=== PATIENT | female | born 1940 | race Caucasian/White ===

== ENCOUNTER 2016-11-20 15:28 | Observation (INO) ==
[2016-11-20] MEDS ORDERED: Aspirin 81 MG TAB.CHEW PO ONE (15:54)
--- NOTE | 2016-11-20 16:01 | Emergency Department Note ---
Disposition Clinical Impression: Chest pain Qualifiers: Chest pain type: unspecified Qualified Code(s): R07.9 - Chest pain, unspecified Disposition: Admitted As Inpatient Condition: Good Referrals: Nikunj Ash Jr, MD [Primary Care Provider] - Forms: ED Satisfaction Letter Time of Disposition: 18:58 General Adult HPI - General Chief complaint: ED Chest Pain Stated complaint: SOB Time Seen by Provider: 11/20/16 15:44 Source: patient Limitations: no limitations Nursing Notes Reviewed: Yes Vital Signs Reviewed: Yes - History of Present Illness HPI Narrative: 10 day history of aching in her chest. [facility]. No radiation. Associated shortness of breath. No alleviating or provoking factors. Pain Scale: 8 - Related Data Home Medications Medication Instructions Recorded Confirmed Cetirizine HCl [Zyrtec] 10 mg PO DAILY PRN 09/18/16 11/20/16 Meloxicam 7.5 mg PO DAILY 09/18/16 11/20/16 Tramadol HCl [Ultram] 50 mg PO Q6H PRN 09/18/16 11/20/16 metFORMIN [Glucophage] 500 mg PO BIDWM 09/18/16 11/20/16 Albuterol Sulfate [Albuterol 2 puff IH Q4HR PRN 11/20/16 11/20/16 Inhaler] Aspirin Enteric Coated [Aspirin EC] 81 mg PO DAILY 11/20/16 11/20/16 Allergies Allergy/AdvReac Type Severity Reaction Status Date / Time azithromycin Allergy Swelling Verified 09/18/16 18:51 [From Zithromax Z-Silvano] of Lip/Tongue/Throat cephalexin [From Keflex] Allergy Rash Verified 09/18/16 18:51 All systems ED: reviewed and negative except as stated. Constitutional: Denies: fever, chills ENT ED: Denies: throat pain, congestion Cardiovascular: Reports: chest pain (ache for 10 days) Respiratory: Reports: cough (dry for one month), dyspnea (with the chest discomfort) Gastrointestinal: Denies: abdominal pain, nausea, vomiting, diarrhea Genitourinary: Denies: urgency, dysuria, frequency, hematuria Musculoskeletal: Denies: back pain, neck pain Neurological: Denies: headache, weakness Past Medical History - Past Medical History Attestation: Yes The following information was validated with the patient. Medical history: Reports: arthritis, asthma, diabetes, other - Social History Smoking Status: Never smoker Smokeless Tobacco Status: No Alcohol use: Reports: none Drug use: Reports: none Physical Exam - General Limitations: no limitations General appearance: alert, in no apparent distress - Head Head exam: atraumatic, normocephalic, normal inspection - Eye Eye exam: Present: normal appearance, PERRL, EOMI. Absent: scleral icterus - ENT ENT exam: normal exam, normal oropharynx, mucous membranes moist - Neck Neck exam: Present: normal inspection, full ROM, trachea midline - Chest Chest inspection: Present: normal inspection, symmetric chest wall rise. Absent : tenderness - Respiratory Respiratory exam: Present: normal lung sounds bilaterally. Absent: respiratory distress - Cardiovascular Cardiovascular exam: Present: regular rate, normal rhythm, normal heart sounds - Abdominal Exam Abdominal exam: Present: soft, Non-Tender, normal bowel sounds - Extremities Exam Extremities exam: Present: normal inspection, full ROM, normal capillary refill. Absent: tenderness, pedal edema - Back Exam Back exam: Present: normal inspection, full ROM. Absent: tenderness - Neurological Exam Neurological exam: Present: alert, oriented X3 - Psychiatric Psychiatric exam: Present: normal affect, normal mood - Skin Skin exam: Present: warm, dry, intact, normal color. Absent: rash, cyanosis Course Course Narrative: Female patient with a ten-day history of chest pain shortness of breath. She states the pain is getting worse. She denies any cardiac history. She states this happened about 3 years ago however this time it is more intense. She does have a history of emphysema. Patient states that it does not get better or worse with movement. She denies any fevers. She denies any chills. She denies any productive cough but states she does have a chronic dry cough. Her lung sounds are clear heart tones are normal. She denies any nausea or vomiting. She describes the pain in her chest as an ache. She states it is very hard to describe periods of funny feeling to her. Eyes any nausea vomiting or diarrhea. She has no abdominal pain on exam. Her abdominal exam is soft nontender with no masses she has no edema to any of her extremities. Cardiac workup revealed a negative troponin. Her EKG was of normal sinus rhythm. We will admit patient for a cardiac workup. - Reevaluation(s) Reevaluation #1: Patient reassessed. She was having an episode of chest pain. She still refusing pain medication at this time. She is in normal sinus rhythm. We will get another EKG. We will admit patient to the hospital. Time: 18:55 - Consultations Consultation #1: Fito ALAS accepted Pt in stable condition. Time: 18:59 Vital Signs Temperature 97.7 F 11/20/16 15:35 Pulse Rate 74 11/20/16 15:35 Respiratory Rate 19 11/20/16 15:35 Blood Pressure 174/87 11/20/16 15:35 O2 Sat by Pulse Oximetry 96 11/20/16 15:35 Temperature 97.7 F 11/20/16 15:35 Pulse Rate 78 11/20/16 18:42 Respiratory Rate 16 11/20/16 18:42 Blood Pressure 170/95 11/20/16 18:42 O2 Sat by Pulse Oximetry 99 11/20/16 18:42 Oxygen Delivery Oxygen Delivery Room Air Medical Decision Making - Medical Records Medical records reviewed: Yes I reviewed the patient's medical records. - Lab Data Lab results reviewed: Yes I reviewed the patient's lab results. Result diagrams: 11/20/16 16:00 Lab Results 11/20/16 11/20/16 11/20/16 Range/Units 16:00 16:00 16:20 Sodium 140 (136-145) mEq/L Potassium 3.7 (3.5-4.5) mEq/L Chloride 105 (98-109) mEq/L Carbon Dioxide 27 (19-29) mEq/L BUN 22 H (7-20) mg/dL Creatinine 0.77 (0.57-1.11) mg/dL Est GFR ( Amer) > 60 (> 60) Est GFR (Non-Af Amer) > 60 (> 60) BUN/Creatinine Ratio 29 H (6-26) Glucose 96 (70-99) mg/dL Calculated Osmolality 293 (280-300) Calcium 9.2 (8.6-10.8) mg/dL Troponin I 0.00 (0-0.03) ng/mL Urine Color Yellow (Yellow) Urine Clarity Clear (Clear) Urine pH 6.5 (5.0-8.0) pH Units Ur Specific [place] 1.017 (1.010-1.025) Urine Protein Negative (Neg-Trace) mg/dL Urine Glucose (UA) Normal (Normal) mg/dL Urine Ketones Negative (Negative) mg/dL Urine Blood Negative (Negative) Urine Nitrite Negative (Negative) Urine Bilirubin Negative (Negative) Urine Urobilinogen Normal (Normal) mg/dL Ur Leukocyte Esterase Trace H (Negative) Urine Microscopic RBC 0-3 (0-3) per hpf Urine Microscopic WBC 0-3 (0-3) per hpf Ur Squamous Epith Cells Moderate H (None-Few) per lpf Urine Bacteria None Seen (None-Few) per hpf Hyaline Casts None Seen (None-Few) per lpf Ur Culture Indicated? YES A (NO) - Radiology Data Radiology results reviewed: Yes I reviewed the patient's radiology results. Chest X-Ray 11/20/16 15:55 IMPRESSION: No acute process. D/ / Osvaldo Hogue MD / Osvaldo Hogue MD Interpreting Provider: Osvaldo Hogue MD - EKG Data EKG #1 EKG attestation: Yes I reviewed and interpreted this EKG. EKG results narrative: 1547 Normal sinus rhythm with a sinus arrhythmia at a rate of 71. VT interval is 184. QRS duration is 86. QT is 395. QTC is 417. No signs of acute ischemia. No significant changes from previous EKG dated 09/17/2013. EKG #2 EKG attestation: Yes I reviewed and interpreted this EKG. EKG results narrative: 1634 Normal sinus rhythm with a sinus arrhythmia at a rate of 69. VT interval is 187. QRS duration is 81. QT is 417. QTC is 436. No signs of acute ischemia. No changes from previous EKG taken earlier today. EKG #3 EKG attestation: Yes I reviewed and interpreted this EKG. EKG results narrative: 1900 Sinus rhythm with a sinus arrhythmia at a rate of 84. VT interval is 184. QRS duration is 78. QT is 383. QTC is 424. Signs of acute ischemia. No change from previous EKGs dated today. Attestation Statement - Attestation Attestation: I examined this patient and my medical decision-making was reviewed with the [employer]/PA/Advanced Practice Nurse/Resident Physician. I agree with the documented findings, disposition and treatment plan as described except to the extent set forth below.
[2016-11-20 16:23] LABS: BUN/Creatinine Ratio 29 (6-26); Blood Urea Nitrogen 22 mg/dL (7-20); Calcium 9.2 mg/dL (8.6-10.8); Carbon Dioxide 27 mEq/L (19-29); Chloride 105 mEq/L (98-109); Glucose 96 mg/dL (70-99); Osmolality,Calculated 293 (280-300); Potassium 3.7 mEq/L (3.5-4.5); Sodium 140 mEq/L (136-145); eGFR For African Americans > 60 (> 60); eGFR For Non-African Americans > 60 (> 60)
[2016-11-20 16:31] LABS: Bilirubin,Urine Negative (Negative); Blood,Urine Negative (Negative); Clarity,Urine Clear (Clear); Color,Urine Yellow (Yellow); Glucose,Urine (UA) Normal (Normal); Ketones,Urine Negative (Negative); Leukocyte Esterase,Urine Trace (Negative); Nitrite,Urine Negative (Negative); PH,Urine 6.5 pH Units (5.0-8.0); Protein,Urine Negative (Neg-Trace); Specific Gravity,Urine 1.017 (1.010-1.025); Urobilinogen,Urine Normal (Normal)
[2016-11-20 16:37] LABS: Bacteria,Urine None Seen per hpf (None-Few); Hyaline Casts,Urine None Seen per lpf (None-Few); RBC,Urine 0-3 per hpf (0-3); Squamous Epithelial Cell,Urine Moderate per lpf (None-Few); WBC,Urine 0-3 per hpf (0-3)
[2016-11-20] MEDS ORDERED: Naloxone 0.4 MG/ML INJ IVP PRN (19:37)
[2016-11-20] MEDS ORDERED: *HR* Morphine 2 MG/ML SYRINGE IVP PRN (19:37)
[2016-11-20] MEDS ORDERED: Ondansetron 4 MG/2 ML VIAL IVP PRN (19:37)
--- NOTE | 2016-11-20 21:06 | Internal Med History&Physical ---
<Osvaldo Harding - Last Filed: 11/20/16 21:16> Date of Encounter: 11/20/16 Time of Encounter: 21:01 Assessment and Plan (1) Chest pain Current visit: Yes Status: Acute Chest pain appears atypical. No history or family history of cardiac disease. Patient is a diabetic so there is some elevated risk with that. No EKG changes concerning for ischemia. Given the patient's symptoms we will trend troponins and obtain a stress test in the morning. We will check A1c and lipid panel. If negative patient can likely be discharged home for outpatient follow-up. Qualifiers: Chest pain type: unspecified Qualified Code(s): R07.9 - Chest pain, unspecified (2) Hypertension Current visit: Yes Status: Acute Patient's blood pressure is elevated on presentation. This could be contributing to the patient's chest pain. It was reported that the patient's blood pressure was as high as 240 systolic however that is not documented in the medical record are mentioned in any nurses note or ER documentation. Documented blood pressures show blood pressure 170/95 which is improved to 152/ 80. Patient has no history of hypertension. This may be related to pain. We will continue to monitor the patient's blood pressure and hold off on any antihypertensive agents at this time. If the patient's blood pressure remains elevated she may benefit from initiation of an antihypertensive regimen and close outpatient follow-up. Qualifiers: Hypertension type: essential hypertension Qualified Code(s): I10 - Essential (primary) hypertension (3) Type 2 diabetes mellitus Current visit: Yes Status: Acute Patient takes metformin only at home and appears to have shown a good control of her blood sugars. Most recent A1c was August 2015 which was 5.9. Patient reports blood sugars at home run between 80 and 140. We will hold metformin at this time and hold off on any diabetic treatment as the patient will be nothing by mouth at midnight for stress test. 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 Patient is ambulatory. Internal Medicine - H&P: HPI Chief complaint: Chest Pain Admitted From: Emergency Dept Plans for Post Hospital Care: Home History of present illness: Ms. Keyes is a 76 year old female with history of well controlled diabetes presents with chest pain. Patient states that she has had chest discomfort for the past 10 days. She describes it as a intermittent heaviness in the chest. She reports occasional radiation to R neck. She states occasionally it is worse with exertion but discomfort does not worsen every time she exerts her self. She feels like her symptoms have worsened over the last few day. She reports shortness of breath and diaphoresis associated with the symptoms. She also reports some "fluttering" in her chest today. She denies fever, chills, nausea , vomiting, change in bowel habits, dysuria Past Med Surg Social Fam HX - Past Medical History Medical history: arthritis, asthma, diabetes, other - Past Surgical History Surgical History: appendectomy, cholecystectomy - Social History Smoking Status: Never smoker Smokeless Tobacco Status: No Alcohol use: none Drug use: none - Family History Paternal Grandfather Hx Family Cardiac Disorders: Yes Internal Medicine - H&P: Meds Cetirizine HCl [Zyrtec] 10 mg PO DAILY PRN 09/18/16 [History] Meloxicam 7.5 mg PO DAILY 09/18/16 [History] Tramadol HCl [Ultram] 50 mg PO Q6H PRN 09/18/16 [History] metFORMIN [Glucophage] 500 mg PO BIDWM 09/18/16 [History] Albuterol Sulfate [Albuterol Inhaler] 2 puff IH Q4HR PRN 11/20/16 [History] Aspirin Enteric Coated [Aspirin EC] 81 mg PO DAILY 11/20/16 [History] Allergies azithromycin [From Zithromax Z-Silvano] Allergy (Verified 09/18/16 18:51) Swelling of Lip/Tongue/Throat cephalexin [From Keflex] Allergy (Verified 09/18/16 18:51) Rash All Systems PM: A 10-system review of systems was performed and is negative for pertinent findings except as documented above in the HPI. - Constitutional Constitutional: no chills, no fever(s), no falls, no weakness - EENT Eyes: no blurry vision, no change in vision Nose, mouth and throat: no sinus pain, no sinus pressure, no sore throat - Cardiovascular Cardiovascular ROS IM: chest pain, diaphoresis, dyspnea, palpitations, no edema , no irregular heart rhythm, no lightheadedness, no syncope - Respiratory Respiratory: cough (dry), dyspnea, no hemoptysis, no wheezing, no chest congestion, no excessive phlegm production, no change in phlegm color - Gastrointestinal Gastrointestinal: no abdominal pain, no change in bowel habits, no nausea, no vomiting - Genitourinary Genitourinary: no dysuria, no hematuria - Musculoskeletal Musculoskeletal ROS IM: no back pain, no numbness, no tingling - Integumentary Integumentary IM: no new lesions, no rash - Neurological Neurological ROS: no confusion, no dizziness, no frequent falls - Psychiatric Psychiatric: no anxiety - Hematologic/Lymphatic Hematologic/Lymphatic: no easy bleeding, no easy bruising - Constitutional Vitals: Temp Pulse Resp BP Pulse Ox 97.7 F 78 18 152/80 99 11/20/16 15:35 11/20/16 18:42 11/20/16 19:57 11/20/16 19:57 11/20/16 18:42 General appearance: Present: A&O X 3, pleasant, no acute distress - Head Head exam: Present: atraumatic, normal inspection, normocephalic - Eye Eye exam: Present: EOMI, PERRL - ENT ENT exam: Present: mucous membranes moist - Neck Neck exam general surgery: Present: full ROM, supple - Respiratory Respiratory exam: Present: CTAB. Absent: rales, rhonchi, wheezes - Cardiovascular Cardiovascular exam: Present: RRR. Absent: gallop, irregular rhythm, rubs, systolic murmur, tachycardia - GI/Abdominal GI/Abdominal exam: Present: normal bowel sounds, soft. Absent: distended, tenderness - Extremities Exam Extremities exam: Present: warm. Absent: pedal edema, tenderness Additional comments: Varicose veins noted to right lower extremity. - Neurological Exam Neurological exam: Present: alert, CN II-XII intact, oriented X3, no focal deficits - Skin Skin exam: Present: dry, intact, warm Internal Med - H&P Results - Labs CBC & Chem 7: 11/20/16 16:00 <Yemi Pinto - Last Filed: 11/21/16 05:29> Date of Encounter: 11/20/16 Internal Medicine - H&P: HPI History of present illness: Ms. Keyes is a 76 year old female All Systems PM: A 10-system review of systems was performed and is negative for pertinent findings except as documented above in the HPI. - Constitutional Vitals: Temp Pulse Resp BP Pulse Ox 98.0 F 73 14 122/67 95 11/21/16 03:44 11/21/16 03:44 11/21/16 03:44 11/21/16 03:44 11/21/16 03:44 Internal Med - H&P Results - Labs CBC & Chem 7: 11/21/16 03:41 11/21/16 03:41 Labs: Short CBC 11/21/16 Range/Units 03:41 WBC 7.6 (4.3-11.1) K/mcL Hgb 13.1 (11.5-15.4) g/dL Hct 40.9 (35.3-44.9) % Plt Count 165 (140-400) K/mcL Neutrophils # 4.4 (1.6-8.9) K/mcL BMP 11/21/16 03:41 Sodium 140 Potassium 3.7 Chloride 107 Carbon Dioxide 24 BUN 19 Creatinine 0.78 Glucose 95 Calcium 9.3 Cardiac Enzymes 11/20/16 11/21/16 Range/Units 21:43 03:41 Troponin I 0.00 0.00 (0-0.03) ng/mL - Attending Attestation I personally interviewed and examined this patient and my medical decision- making was reviewed with the Resident Physician. I agree with the documented findings, disposition and treatment plan as described.
[2016-11-20 22:34] LABS: Basophils # 0.1 K/mcL (0.0-0.2); Basophils % 0.7 %; Eosinophils # 0.2 K/mcL (0.0-0.6); Eosinophils % 2.4 %; Hematocrit 44.8 % (35.3-44.9); Hemoglobin 13.9 g/dL (11.5-15.4); Immature Granulocytes % 0.1 % (0-4); Lymphocytes # 2.6 K/mcL (0.6-4.6); Lymphocytes % 35.7 %; Mean Corpuscular Hemoglobin 26.5 pg (28.0-33.3); Mean Corpuscular Volume 85.3 fL (83.0-100.0); Mean Platelet Volume 10.7 fL (9.4-12.4); Monocytes # 0.5 K/mcL (0.0-1.3); Monocytes % 7.3 %; Neutrophils # 3.9 K/mcL (1.6-8.9); Platelet Count 201 K/mcL (140-400); Red Blood Count 5.25 M/mcL (3.82-4.97); Red Cell Distribution Width 15.1 % (11.5-14.5); Segmented Neutrophils % 53.8 %
[2016-11-20] MEDS: traMADol 50 MG TABLET PO PRN (23:04)
[2016-11-21 04:37] LABS: Basophils % 0.5 %; Eosinophils # 0.1 K/mcL (0.0-0.6); Eosinophils % 1.8 %; Hematocrit 40.9 % (35.3-44.9); Hemoglobin 13.1 g/dL (11.5-15.4); Immature Granulocytes % 0.1 % (0-4); Lymphocytes # 2.4 K/mcL (0.6-4.6); Lymphocytes % 31.4 %; Mean Corpuscular Hemoglobin 26.8 pg (28.0-33.3); Mean Corpuscular Volume 83.8 fL (83.0-100.0); Mean Platelet Volume 10.2 fL (9.4-12.4); Monocytes # 0.6 K/mcL (0.0-1.3); Monocytes % 7.7 %; Neutrophils # 4.4 K/mcL (1.6-8.9); Platelet Count 165 K/mcL (140-400); Red Blood Count 4.88 M/mcL (3.82-4.97); Segmented Neutrophils % 58.5 %
[2016-11-21 04:53] LABS: Hemoglobin A1C 5.8 %
[2016-11-21 05:08] LABS: BUN/Creatinine Ratio 24 (6-26); Blood Urea Nitrogen 19 mg/dL (7-20); Carbon Dioxide 24 mEq/L (19-29); Chloride 107 mEq/L (98-109); Glucose 95 mg/dL (70-99); Potassium 3.7 mEq/L (3.5-4.5); Sodium 140 mEq/L (136-145); eGFR For African Americans > 60 (> 60); eGFR For Non-African Americans > 60 (> 60)
[2016-11-21 05:09] LABS: Calcium 9.3 mg/dL (8.6-10.8); Chol/HDL Ratio 3.8 (0-4.9); Cholesterol 158 mg/dL (< 200); HDL Cholesterol 42 mg/dL (40-59); LDL Cholesterol,Calculated 104 mg/dL (0-99); Magnesium 1.8 mg/dL (1.6-2.6); Osmolality,Calculated 292 (280-300); Triglycerides 58 mg/dL (< 150)
[2016-11-21] MEDS: *HR* Heparin 5,000 UNIT/ML VIAL SQ SCH ×3 (05:22→20:44)
[2016-11-21] MEDS ORDERED: Regadenoson 0.4 MG/5 ML SYRINGE IVP ONE (06:25)
[2016-11-21] MEDS: Aspirin Enteric Coated 81 MG Tablet PO SCH (09:18)
[2016-11-21] MEDS: traMADol 50 MG TABLET PO PRN ×2 (09:20→20:43)
--- NOTE | 2016-11-21 12:56 | Electrocardiograph Report ---
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
--- NOTE | 2016-11-21 12:57 | Electrocardiograph Report ---
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
--- NOTE | 2016-11-21 13:01 | Electrocardiograph Report ---
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
[2016-11-21] MEDS: hydroCHLOROthiazide 25 MG TABLET PO SCH (14:40)
--- NOTE | 2016-11-21 14:58 | Internal Med Progress Note ---
Date of Encounter: 11/21/16 Time of Encounter: 10:00 - Assessment and plan (1) Chest pain Current Visit: Yes Status: Acute Assessment and plan: Patient reports chest pain on and off for approximately one year, she states it has become worse over the last 8 days. She says it is almost constant and describes it as a pressure. She says at different times throughout the last 8 days she has had diaphoresis, no nausea or vomiting. She also reports weakness , feeling palpitations, fatigue, and shortness of breath. She reports that the pain is mid sternal, upper chest with some radiation to her right posterior neck and left breast at times. She also reports that she has been treated recently for bronchitis and has a nonproductive cough. Pain is not reproducible with palpation, movement, or deep inspiration. She feels that the pain could potentially be related to hypertension. She said that she took a old TRAM last night for knee pain and states that it did help her chest pain a little bit. She currently rates it at 2/10. Troponins were negative. She is getting a 2 day stress test. EKG showed sinus rhythm with borderline left axis deviation. Rate was 69, TN interval was 187, QTC 436. Telemetry Pain relief as needed Stress test today 2 tomorrow If stress negative and patient is still having chest pain consider cardiology consult Qualifiers: Chest pain type: unspecified Qualified Code(s): R07.9 - Chest pain, unspecified (2) Hypertension Current Visit: Yes Status: Acute Assessment and plan: She states that her blood pressure is normally low. She states that she was 200 systolic yesterday. She feels that is contributing to her chest pain. She does have hydralazine 10 mg IV when necessary. I also started her on hydrochlorothiazide 12.5 mg by mouth daily. Will continue to reassess and see if this helps with her chest pain. Blood pressures is 150 over 90s. Patient states this is high for her. Qualifiers: Hypertension type: essential hypertension Qualified Code(s): I10 - Essential (primary) hypertension (3) Type 2 diabetes mellitus Current Visit: Yes Status: Acute Assessment and plan: Well controlled. A1c is 5.8. 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 - Time Spent With Patient less than 15 minutes - Constitutional Vitals: Temp Pulse Resp BP Pulse Ox 97.6 F 75 16 158/94 95 11/21/16 10:54 11/21/16 10:54 11/21/16 10:54 11/21/16 10:54 11/21/16 10:54 General appearance: Present: A&O X 3, pleasant, no acute distress, answers questions appropriately - Head Head exam: Present: normal inspection - Eye Eye exam: Present: normal appearance, conjuntiva pink - ENT ENT exam: Present: mucous membranes moist, normal exam, normal external ear exam - Neck Neck exam general surgery: Present: normal inspection. Absent: lymphadenopathy , tenderness - Respiratory Respiratory exam: Present: CTAB. Absent: rales, respiratory distress, rhonchi, wheezes - Cardiovascular Cardiovascular exam: Present: RRR, +S1, +S2. Absent: bradycardia, clicks, diastolic murmur, distant heart sounds, gallop, JVD, systolic murmur - GI/Abdominal GI/Abdominal exam: Present: normal bowel sounds, soft. Absent: distended, hepatomegaly, tenderness - Extremities Exam Extremities exam: Present: normal capillary refill, normal inspection, warm, radial pulses palpable and symetrical. Absent: pedal edema, tenderness - Neurological Exam Neurological exam: Present: alert, oriented X3, no focal deficits, strengths equal and symetr throughout. Absent: facial droop, speech deficit Internal Medicine: Result - Labs CBC & Chem 7: 11/21/16 03:41 11/21/16 03:41 Labs: Short CBC 11/21/16 Range/Units 03:41 WBC 7.6 (4.3-11.1) K/mcL Hgb 13.1 (11.5-15.4) g/dL Hct 40.9 (35.3-44.9) % Plt Count 165 (140-400) K/mcL Neutrophils # 4.4 (1.6-8.9) K/mcL BMP 11/21/16 03:41 Sodium 140 Potassium 3.7 Chloride 107 Carbon Dioxide 24 BUN 19 Creatinine 0.78 Glucose 95 Calcium 9.3 Cardiac Enzymes 11/20/16 11/21/16 Range/Units 21:43 03:41 Troponin I 0.00 0.00 (0-0.03) ng/mL Consult Discharge Plan - Plan Referrals: Nikunj Ash Jr, MD [Primary Care Provider] -
[2016-11-21] MEDS ORDERED: Dextrose Gel 15 GM PO PRN ×2 (15:03)
[2016-11-21] MEDS ORDERED: D5% in Water 1,000 ML IVC PRN (15:03)
[2016-11-21] MEDS ORDERED: *HR* Dextrose 50 % in Water (Syg) 50 ML SYRINGE IVP PRN (15:03)
[2016-11-21] MEDS: Insulin LISPRO 300 UNITS/3 ML VIAL SQ SCH (16:44)
[2016-11-21] MEDS ORDERED: Insulin LISPRO 300 UNITS/3 ML VIAL SQ SCH (21:00)
[2016-11-22 04:46] LABS: Basophils # 0.1 K/mcL (0.0-0.2); Basophils % 0.8 %; Eosinophils # 0.1 K/mcL (0.0-0.6); Eosinophils % 1.7 %; Hematocrit 40.4 % (35.3-44.9); Hemoglobin 12.8 g/dL (11.5-15.4); Immature Granulocytes % 0.3 % (0-4); Lymphocytes # 1.9 K/mcL (0.6-4.6); Lymphocytes % 28.1 %; Mean Corpuscular HGB Conc 31.7 g/dL (31.6-35.5); Mean Corpuscular Hemoglobin 26.6 pg (28.0-33.3); Mean Corpuscular Volume 83.8 fL (83.0-100.0); Monocytes # 0.5 K/mcL (0.0-1.3); Monocytes % 7.3 %; Neutrophils # 4.1 K/mcL (1.6-8.9); Platelet Count 172 K/mcL (140-400); Red Blood Count 4.82 M/mcL (3.82-4.97); Red Cell Distribution Width 14.7 % (11.5-14.5); Segmented Neutrophils % 61.8 %
[2016-11-22 05:05] LABS: BUN/Creatinine Ratio 24 (6-26); Blood Urea Nitrogen 20 mg/dL (7-20); Calcium 9.1 mg/dL (8.6-10.8); Carbon Dioxide 27 mEq/L (19-29); Chloride 106 mEq/L (98-109); Glucose 114 mg/dL (70-99); Osmolality,Calculated 291 (280-300); Potassium 3.8 mEq/L (3.5-4.5); Sodium 139 mEq/L (136-145); eGFR For African Americans > 60 (> 60); eGFR For Non-African Americans > 60 (> 60)
[2016-11-22] MEDS: *HR* Heparin 5,000 UNIT/ML VIAL SQ SCH (06:29)
[2016-11-22] MEDS: Insulin LISPRO 300 UNITS/3 ML VIAL SQ SCH ×2 (09:36→11:43)
[2016-11-22] MEDS: hydroCHLOROthiazide 25 MG TABLET PO SCH (09:43)
[2016-11-22] MEDS: Aspirin Enteric Coated 81 MG Tablet PO SCH (09:43)
[2016-11-22 11:28] VITALS: BP 130/88
--- NOTE | 2016-11-22 11:30 | Nuclear Medicine Stress Report ---
rRegadenoson Nuclear 2 Name: Mariel Keyes Date of Study: 11/21/2016 Date: 1940 Ht: 66.0 in Medical Record#: [id number] Age: 76 Wt: 241.0 lb Gender: Female Order #: [id number] Location: [facility] Room: [facility] Supervising Provider: Gabriela Cole CNP Reading Physician: Anish Donis DO, FAC, [facility] Ordering Physician: Gavi Ibrahim CNP Primary Care Physician: Nikunj Ash MD Stress Technologist: Liang Hoskins, ASSOCIATE CURATOR, CCT Banquet Coordinator: Remigio Hallman Indications: Chest Pain Impression: Pharmacologic stress ECG is negative for ischemia at level of heart rate achieved. Gated EF = 71%. Small sized, mild intensity, fixed apical lateral defect c/w artifact. Perfusion imaging was negative for ischemia or infarct. History: Diabetes Stress Test Summary: Stress Test Type: Pharmacologic Regadenoson 0.4mg/5ml given IV Baseline Information: Initial Heart Rate: 74 Blood Pressure: 144/86 Stress Information: Stress Time: 4 min 00 sec Test Terminated Due to (primary): Completed Protocol Maximum Blood Pressure: 104/70 Maximum Heart Rate: 87 Percent Maximum Heart Rate Achieved: 61 Double Product: 9048 METS Reached: 1 Symptoms: Shortness of breath, Nausea Nuclear Summary: SPECT myocardial perfusion imaging using Tc99m Sestamibi given intravenously was performed at rest and following cardiac stress testing. The resting images were obtained following initial dose of 31.5 mCi. Following stress an additional dose of 35.2 mCi was given at peak exercise or 30 seconds post regadenoson infusion. Medication Given: Time Medication Dose Units Route Findings: Stress Note * Resting ECG demonstrated normal sinus rhythm. * Occasional PVCs noted prior to exam beginning. * Pharmacologic stress ECG is negative for ischemia at level of heart rate achieved. * Occasional PVCs noted during stress. * Patient had no chest pain during stress. Hemodynamic responses * Normal hemodynamic responses to pharmacologic stress. Study Quality * Study quality is average. Gated EF % * Gated EF = 71%. Left Ventricle * The left ventricle is not dilated. * LVEDV = 95 mL. NORMALS * Normal wall motion. Apical Perfusion Rest * The apical lateral segment shows a mild reduction in perfusion. Apical Perfusion Stress * The apical lateral segment shows a mild reduction in perfusion. TID * No evidence of transient ischemic dilatation. TID ratio * TID ratio = 1.14. Lung Uptake * There is no evidence of increase lung uptake. Updated by Anish Donis DO, FACIzzy, LIZBETH, FASVIRI on 11/22/2016 11:26:43 AM electronically signed on 11/22/2016 11:27:13 AM with status of Final
--- NOTE | 2016-11-22 12:28 | Discharge Summary ---
Date of Encounter: 11/22/16 Time of Encounter: 11:00 - Discharge Diagnosis (1) Chest pain Priority: Primary Status: Acute Comments: Pt denies chest pain today. 2 day stress test completed, Mauricio negative for ischemia, gated EF 71%, there is a small sized, mild intensity, fixed apical lateral defect consistent with artifact. Perfusion imaging was negative for ischemia or infarct. Chest x-ray was negative for any acute processes, troponins were negative. EKG was sinus rhythm with sinus arrhythmia on arrival. Rate 84, ID interval 184 and QTC 424. Patient reports that she has not had any chest pain since yesterday. Lungs are clear anteriorly and posteriorly. Patient does have mild lower extremity edema bilaterally, she says this is normal for her and remain unchanged. Qualifiers: Chest pain type: precordial pain Qualified Code(s): R07.2 - Precordial pain (2) Hypertension Priority: Secondary Status: Acute Comments: Patient was hypertensive on admission. She returned to 160s over 90s throughout admission, I did start her on a very low dose of hydralazine yesterday afternoon. Blood pressure is now at goal. Last blood pressure was 130/88. Pulse is regular. We will send patient home on hydralazine 12.5 mg by mouth daily Patient will follow up with primary care physician for evaluation and medication change if needed. Qualifiers: Hypertension type: essential hypertension Qualified Code(s): I10 - Essential (primary) hypertension (3) Type 2 diabetes mellitus Priority: Secondary Status: Acute Comments: A1c is 5.8. Accu-Cheks have been slightly elevated in the 130s and 140s. Continue home medications. Qualifiers: Diabetes mellitus complication status: without complication Diabetes mellitus watermelon inspector insulin use: without watermelon inspector use Qualified Code(s): E11.9 - Type 2 diabetes mellitus without complications (4) DVT prophylaxis Priority: Secondary Status: Acute - Discharge Medications Prescriptions: hydroCHLOROthiazide [Hydrochlorothiazide] 12.5 mg PO DAILY #30 tablet Home Medications: Cetirizine HCl [Zyrtec] 10 mg PO DAILY PRN 09/18/16 [History] Meloxicam 7.5 mg PO DAILY 09/18/16 [History] Tramadol HCl [Ultram] 50 mg PO Q6H PRN 09/18/16 [History] metFORMIN [Glucophage] 500 mg PO BIDWM 09/18/16 [History] Albuterol Sulfate [Albuterol Inhaler] 2 puff IH Q4HR PRN 11/20/16 [History] Aspirin Enteric Coated [Aspirin EC] 81 mg PO DAILY 11/20/16 [History] hydroCHLOROthiazide [Hydrochlorothiazide] 12.5 mg PO DAILY #30 tablet 11/22/16 [ Rx] Allergies/Adverse Reactions: Allergies azithromycin [From Zithromax Z-Silvano] Allergy (Verified 09/18/16 18:51) Swelling of Lip/Tongue/Throat cephalexin [From Keflex] Allergy (Verified 09/18/16 18:51) Rash Procedures/tests Complete & Pending: Procedures Performed prior 72 hours Category Date Time Status NM isaac perf SPECT multi [NM] Routine Exams 11/20/16 21:15 Taken SP pharm nuclear stress Routine Y 11/21/16 Completed Date of admission: 11/20/16 19:20 Primary care physician: Nikunj Ash Jr, MD Discharging clinician: Gavi Ibrahim Anticipated date of discharge: 11/22/16 - Patient Status Disposition: Home, Self-Care Functional capacity at discharge: independent ambulation Overall status at discharge: patient is back to baseline - Discharge Instructions Follow Up With: Kendal Ramirez DO [Partnered Physician] - 11/26/16 9:30 am Additional Instructions: Please start taking your HCTZ at home tomorrow. Resume all other home medications. Please follow up with your PCP in the next week to 10 days for a follow up visit , you may need a medication adjustment or change. Return to the ER as needed for any new or concerning symptoms or if your pain returns. - Diet and Activity Activity: increase activity as tolerated Diet: diabetic diet Interval History: Mrs. Keyes is a 76-year-old female with past medical history of type 2 diabetes. She is very well controlled A1c is 5.9. She presented to the emergency department 2 days ago with a complaint of chest discomfort, describes it as a heaviness with radiation to the right neck. She says she has had it for about a year, however it has gotten worse over the last 8-10 days. She denies any relation to food, however sometimes it does get worse with exertion, does not get worse with deep inspiration. She does report shortness of breath and diaphoresis along with the chest pain, she denies nausea. Today patient is pain -free and has had no episodes since yesterday. Patient had a 2 day stress test that showed no signs of ischemia or infarct. Chest x-ray was negative. Troponins were negative. EKG was normal sinus rate 84. There is no conversational dyspnea. She does have mild peripheral edema, + 1 nonpitting. She says this is normal for her, it is unchanged. Patient was hypertensive on arrival. She remained 160s over 90s throughout her stay. I gave her 1 dose of hydrochlorothiazide yesterday afternoon, shortly thereafter chest pain resolved. Her last blood pressure here was 130/88, which is well within goal for her age. I will send her home with a prescription for the same. I have made her aware that she will need to follow-up with her primary care physician for evaluation and possible medication change if necessary. Patient has S1 and S2, regular rate and rhythm, no gallops murmurs or clicks. Peripheral pulses are +2 and regular. Patient's labs have remained within normal limits. Blood pressure has returned to within normal limits. Patient is stable and appropriate for discharge. Hospital course: Ms. Keyes is a 76 year old female - Time Spent with Patient Total time spent providing and/or coordinating discharge services: Less than 30 minutes - Constitutional Vitals: Temp Pulse Resp BP Pulse Ox 98.0 F 62 16 130/88 95 11/22/16 11:27 11/22/16 11:27 11/22/16 11:27 11/22/16 11:27 11/22/16 11:27 General appearance: Present: cooperative, A&O X 3, pleasant, no acute distress, answers questions appropriately - Head Head exam: Present: normal inspection - Eye Eye exam: Present: normal appearance, conjuntiva pink - ENT ENT exam: Present: mucous membranes moist, normal exam, normal external ear exam - Neck Neck exam general surgery: Present: normal inspection, supple. Absent: lymphadenopathy, tenderness - Respiratory Respiratory exam: Present: CTAB. Absent: decreased breath sounds, rales, respiratory distress, rhonchi, wheezes - GI/Abdominal GI/Abdominal exam: Present: normal bowel sounds. Absent: distended, hepatomegaly, tenderness - Extremities Exam Extremities exam: Present: normal capillary refill, pedal edema, warm, radial pulses palpable and symetrical. Absent: tenderness - Neurological Exam Neurological exam: Present: alert, no focal deficits, strengths equal and symetr throughout. Absent: facial droop, speech deficit
== END 2016-11-22 13:18 | disposition home or self-care (01) ==
LOC: 3BNU 15:28 → EMEROO 15:28 → 3BNU 20:15
PROVIDERS: ADMIT Internal Medicine; ATTEND Registered Nurse

== ENCOUNTER 2017-09-12 09:14 | Inpatient (IN) ==
--- NOTE | 2017-09-12 09:20 | History & Physical Report ---
Date of Encounter: 09/12/17 Time of Encounter: 09:20 24 Hour HP Update - Instructions Instructions: If the History and Physical is less than 30 days old and was completed prior to A.M. admission and or procedure and has NOT been updated on calendar day of procedure please complete this update prior to performing procedure. - Update Patient reports changes in Medical Condition: No Changes in examination, assessment, or condition: No Changes in Medication: No Preop tests/diagnostics Reviewed: Yes Surgery Remains Indicated: Yes Consent for Planned Operative Procedure(s) Verified: Yes
[2017-09-12] MEDS ORDERED: Albuterol 2.5 MG/3 ML NEBULIZER IH ONE (09:42)
[2017-09-12] MEDS ORDERED: Clindamycin 900 MG/50 ML 900 MG/50 ML IV.SOLN IVPB ONE (09:42)
[2017-09-12] MEDS ORDERED: Ringers Solution, Lactated 1,000 ML IVC SCH ×2 (09:45→17:18)
[2017-09-12] MEDS ORDERED: Ketorolac 15 MG/ML VIAL IVP ONE (09:45)
[2017-09-12] MEDS ORDERED: Dexamethasone 4 MG/ML VIAL IVP ONE (09:46)
--- NOTE | 2017-09-12 10:53 | Anesthesia Evaluation PreOp ---
Date of Encounter: 09/12/17 Time of Encounter: 10:46 - Past History Planned Operation: LEFT TKA Cardiac History: HTN, Other (CHEST PAIN 1 YEAR AGO, NEGATIVE CARDIAC WORKUP WITH NORMAL EF) Pulmonary History: Denies Any Significant HX COURIER History: Denies Any Significant HX Other Medical History: Diabetes Type II Anesthesia History: No Prior Anesthetic Complications, Past Anesthesia Alcohol Use: none Drug use: none Medications and Allergies Cetirizine HCl [Zyrtec] 10 mg PO DAILY PRN 09/18/16 [History] Tramadol HCl [Ultram] 50 mg PO Q6H PRN 09/18/16 [History] metFORMIN [Glucophage] 500 mg PO BIDWM 09/18/16 [History] Albuterol Sulfate [Albuterol Inhaler] 2 puff IH Q4HR PRN 11/20/16 [History] Aspirin Enteric Coated [Aspirin EC] 81 mg PO DAILY 11/20/16 [History] hydroCHLOROthiazide [Hydrochlorothiazide] 12.5 mg PO DAILY #30 tablet 11/22/16 [ Rx] Losartan Potassium [Cozaar] 50 mg PO DAILY 09/12/17 [History] Meloxicam [Mobic] 15 mg PO DAILY 09/12/17 [History] 3 Allergy/AdvReac Type Severity Reaction Status Date / Time azithromycin Allergy Swelling Verified 09/18/16 18:51 [From Zithromax Z-Silvano] of Lip/Tongue/Throat cephalexin [From Keflex] Allergy Rash Verified 09/18/16 18:51 - Meds/Allergy Pre-op Review Medications Reviewed: Yes Allergies Reviewed: Yes Anesthesia Results - Labs Laboratory Tests 08/27/17 08/27/17 14:10 14:10 Hgb 13.6 Hct 43.8 Plt Count 203 Creatinine 0.71 Anesthesia Exam O2 Sat Height 1.7 m Weight 116.12 kg BMI 40 Vital Signs Temp Pulse Resp BP Pulse Ox 97.6 F 82 18 129/82 94 09/12/17 09:37 09/12/17 09:37 09/12/17 09:37 09/12/17 09:37 09/12/17 09:37 Blood Glucose* 130 NPO (# of Hours): >8 HOURS - HEENT Mallampati: I Teeth: Normal Denture Type: Upper: Complete - Cardiac Rhythm: Regular - Pulmonary Breath Sounds: bilateral Clear Anesthesia Assess/Plan ASA Score: 3 Modified Carleen Scale for Level of Consciousness: Cooperative, oriented, and tranquil Anesthetic Plan: Regional (SAB, WITH SNB FOR POST OP PAIN) Autologous Blood: Yes Monitoring Plan: Standard Monitors Recovery Plan: PACU Anes Supervising Prov Stmt: I have participated in the evaluation of this patient. Patient informed and consented. Risks, benefits, and alternatives discussed. Patient wishes to proceed.
[2017-09-12] MEDS ORDERED: Ethanol\\Acetic Acid\\Na Ace\\Ben 1,000 ML IRRIG.SOLN IR ONE (11:29)
[2017-09-12] MEDS ORDERED: Tranexamic Acid 1,000 MG/10 ML VIAL ONE (11:48)
[2017-09-12] MEDS ORDERED: *HR* OxyCODONE Immed Rel 5 MG TABLET PO PRN (13:06)
[2017-09-12] MEDS ORDERED: Ondansetron 4 MG/2 ML VIAL IVP ONE (13:06)
[2017-09-12] MEDS ORDERED: *HR* HYDROmorphone 2 MG TABLET PO PRN (13:06)
[2017-09-12] MEDS ORDERED: MORPHINE SUL Oral CONC 10 MG/0.5 ML ORAL.SYG SL PRN (13:06)
[2017-09-12] MEDS ORDERED: *HR* PHENYLEPHRINE 1,000 MCG/10 ML SYRINGE IVP ONE (14:15)
[2017-09-12] MEDS ORDERED: Propofol 500 MG/50 ML INFUS..BTL ONE (14:28)
[2017-09-12] MEDS ORDERED: *HR* Propofol 200 MG/20 ML VIAL IVP ONE (15:10)
--- NOTE | 2017-09-12 15:21 | Physician Discharge Referral ---
Prognosis: Good - Transfer Medications Home Medications: Cetirizine HCl [Zyrtec] 10 mg PO DAILY PRN 09/18/16 [History] Tramadol HCl [Ultram] 50 mg PO Q6H PRN 09/18/16 [History] metFORMIN [Glucophage] 500 mg PO BIDWM 09/18/16 [History] Albuterol Sulfate [Albuterol Inhaler] 2 puff IH Q4HR PRN 11/20/16 [History] Aspirin Enteric Coated [Aspirin EC] 81 mg PO DAILY 11/20/16 [History] hydroCHLOROthiazide [Hydrochlorothiazide] 12.5 mg PO DAILY #30 tablet 11/22/16 [ Rx] Losartan Potassium [Cozaar] 50 mg PO DAILY 09/12/17 [History] Meloxicam [Mobic] 15 mg PO DAILY 09/12/17 [History] Allergies/Adverse Reactions: 3 Allergy/AdvReac Type Severity Reaction Status Date / Time azithromycin Allergy Swelling Verified 09/18/16 18:51 [From Zithromax Z-Silvano] of Lip/Tongue/Throat cephalexin [From Keflex] Allergy Rash Verified 09/18/16 18:51 - Respiratory Orders Smoking Cessation: Smoking cessation has been advised. For more information, call the [place] Tobacco Quit Line at 1-759-HRUN-NOW. - Mobility Orders Ambulate - Rehabiliation Orders Rehab Potential: Good Rehab Orders: ROM Exercises, Evaluation for Physical Therapy Other: DISCHARGE INSTRUCTIONS Dr. Marinelli Total Knee Replacement Wound Care -Keep wound / incision area clean and dry. -Keep the clear dressing on until follow up. -No baths or swimming until otherwise instructed. -Keep the wound dry until follow up. No submerging the wound under standing water until cleared by your physician (no baths, hot tubs, swimming pools, etc) . Sponge baths are the best way to perform personal hygiene while at the same time protecting the wound from moisture. -No scrubbing the wound. You may "pad dry" the wound, but do not rub, as this may open up he wound and pre-dispose to wound infection. -Do not apply lotions or creams to incision site, unless instructed otherwise. -Observe for redness, swelling, or drainage. Please call the clinic immediately if you have fevers, chills with warmth/redness surrounding wound site or if you notice pus drainage from the wound site Activity -No heavy lifting objects greater than 10 pounds. -No driving while on narcotic pain medication. -You may be weight-bear as tolerated on both of your lower extremities. -Use crutches or a walker for ambulation. -Continue range of motion exercises as instructed by the physical therapist Reducing the Risk of Blood Clots -You will need to complete a total 4 week course of enteric coated aspirin 325 mg twice daily. -Wear knee high compression hose 23 hours per day. Discharge Pain Medications -You will be given a prescription for pain medication. Wean off as tolerated. Do not wait to take the pain medication until the pain is severe, as it will be difficult to "catch up" once this occurs. The pain medication usually reaches its full effect ~1 hour after ingesting. -Your prescribed pain medication may contain Tylenol. You must be careful not to exceed 4,000 mg (4 g) of Tylenol (or generic equivalent), from all sources, within a single 24-hour period. -Some common side effects of the narcotic pain medications (Percocet, Oxycodone , Vicodin, etc) include nausea and itching. Benadryl is a great over the counter medication that helps calm your stomach, decreases your anxiety levels, and minimizes the itching. You can easily purchase this at your local pharmacy as an [id number] medication. Please abide by the instructions as printed on t-he bottle. If your nausea persists, make sure to take small amounts of crackers or other dish machine operator foods. - Diet Orders Regular CERTIFICATION: I certify that the transfer of the above named patient to an Extended Care Facility is necessary for the continuing treatment of the diagnosis listed. The above information is true and accurate reflection of patient's current condition. Confidential - Redisclosure prohibited without a patient's written consent.
--- NOTE | 2017-09-12 15:30 | Orthopedic Operative Note ---
Date of procedure: 09/12/17 Pre-op diagnosis: Left knee arthritis Post-op diagnosis: same Procedure: 1. Left total knee arthroplasty with robotic assistance Indications: This is a 77 yo F who has long history of left knee pain with arthritis confirmed on radiographs. The patient has failed conservative treatment including anti-inflammatories therapy and injections. The patient has elected for a left total knee replacement with robotic assistance. The risks and benefits of the procedure were fully explained to the patient. These risks include, but are not limited to, the risk of infection, neurovascular injury, continued pain and stiffness of the knee, need for further surgery, DVT , PE, loss of limb and loss of life. The patient did understand all of these risks and wishes to proceed. Informed consent was then obtained. Operative procedure: The patient was brought back to the OR suite by the anesthesia staff. Adductor canal block and spinal anesthetic was administered by anesthesia. The patient was then placed supine on the operating table and all bony prominences were padded. The anesthesiologist then performed successful general anesthetic for the remainder of the case. The tourniquet was then applied to the upper thigh and the left lower extremity was then prepped and draped in the normal sterile orthopedic fashion. Preoperative antibiotics were then given prior to incision. A timeout was performed confirming the correct patient, site and side, procedure to be performed and any allergies. All were in agreement and we did proceed. An Esmarch bandage was used to exsanguinate the leg, and the tourniquet was elevated to 300 mmHg. A midline 12 cm incision was made from the superior pole of the patella to the tibial tubercle. A medial parapatellar arthrotomy was then used. The patellar was everted, the fat pad was excised. The patella was everted and cut was made at the level of the insertion of the quadriceps and patella tendon. The patella was sized to a 32 mm asymmetric patella, the guide was seated and the lug holes were drilled. Knee was brought into flexion. Patient noted to have grade IV arthritic changes of the patellofemoral joint and medial and lateral compartment. Steinmann pins were placed in the tibia and the femur for the tibial and femoral arrays respectively. Checkpoints were also placed in the tibia and the femur for calculation purposes. The knee, including the femur and the tibial was registered. Osteophytes, ACL and PCL were excised at this point. The knee was assessed in full extension with varus and valgus stresses, and in 90 degrees of flexion with varus and valgus stresses.There was a 15 degree flexion contracture. Components were adjusted on the computer for the robotic cut positions. Femoral cuts were made first with robotic assistance, these included the anterior cut, posterior cuts, chamfer cuts. Tibial cut was then performed with robotic assistance as well. Bone fragments were removed, as well as the medial and lateral meniscus. The size 5 femoral guide was seated, and the PS box cut was made. The size 5 tibial tray was seated and prepared with the fin cutter. Trial reduction with the 9 PS Poly revealed extension of 0 degree and full flexion, varus of 1 degrees. There was no varus-valgus instability with excellent tracking. All trial components were removed all bony surfaces were irrigated. Final components were cemented in place, the tibia followed by the femur with the 9 PS poly and patella. The patient had excellent motion, and stability on tracking after cement cured. The knee was then irrigated out with diluted betadine, bactisure and 2 L of pulse irrigation. The extensor mechanism was closed with #2 FiberWire suture and 0 Stratafix suture. The subcutaneous tissue was then irrigated and closed deep with 2-0 stratafix suture and superficially with 3-0 stratafix suture and skin was closed with zip tie. The patient was then placed in a sterile dressing and a postoperative brace extubated and transferred to recovery room in stable condition. There were no complications. Implants: [place] [employer] PS size 5 femur, size 5 tibia, 9 mm PS poly, 32 mm asymmetric patella Complications: none Anesthesia: GETA, regional, spinal Surgeon: Nicolas Marinelli Was there an recreation assistant present: No Estimated blood loss (cc): 100 Condition: stable Disposition: PACU
--- NOTE | 2017-09-12 15:56 | Anesthesia Evaluation Post Op ---
Date of Encounter: 09/12/17 Time of Encounter: 16:00 - Vital Signs Vital Signs: Vital Signs/O2 Sat/Glucose, Most Current Temp Pulse Resp BP Pulse Ox 09/12/17 15:50 76 14 134/76 94 09/12/17 15:40 69 13 127/76 96 09/12/17 15:30 97.7 F 80 14 125/90 97 - Lungs Lungs: Clear Ascult./Percussion - Airway Airway: Non-obstructed - Cardiovascular Regular Rate - Mental Status Mental Status: Alert & Oriented, Answers Appropriately - Pain Pain Scale: 0 - Nausea Vomiting Nausea Vomiting: Not Present - Hydration Hydration: Ice chips - Discharge PostOp Status: Transfer Patient to floor
[2017-09-12] MEDS ORDERED: Loratadine 10 MG TABLET PO PRN (17:18)
[2017-09-12] MEDS ORDERED: Temazepam 15 MG CAPSULE PO PRN (17:18)
[2017-09-12] MEDS ORDERED: Naloxone 0.4 MG/ML INJ IVP PRN (17:18)
[2017-09-12] MEDS ORDERED: MOM Conc 10 ML UD.LIQ PO PRN (17:18)
[2017-09-12] MEDS ORDERED: Sennosides 8.6 MG TABLET PO PRN (17:18)
[2017-09-12] MEDS ORDERED: Acetaminophen 325 MG TABLET PO PRN (17:18)
[2017-09-12] MEDS: *HR* Metformin 500 MG TABLET PO SCH (18:26)
[2017-09-12] MEDS: Ondansetron 4 MG/2 ML VIAL IVP PRN (18:45)
--- NOTE | 2017-09-12 19:06 | Anesthesia Procedures ---
Date of Encounter: 09/12/17 (LOCATION: BLOCK ROOM PREOP) Time of Encounter: 11:24 ([id number] ) Procedures: Anesthesia - Epidural/Spinal Patient ID/Chart reviewed: Yes Patient examined: Yes Consent Obtained: Yes Supplemental Oxygen: Nasal Cannula Supplemental Oxygen Rate (L/min): 2 Site Prep: Aseptic Technique, Sterile prep and drape, 0.5% Chlorhexidine/Alcohol Patient position: upright Local Anesthetic: Lidocaine 1% Interspace Used: L3-L4 Paresthesia: No Spinal Needle Gauge: 22 (LUCY ON 2ND ATTEMPT) Spinal Dose: 3ML 0.5 BUPIVACAINE + 0.3MG DURAMORPH - Nerve Block Procedure Date: 09/12/17 Time: 11:24 Checklist: Correct Patient Identifier, Correct procedure, History checked Correct side: Left Blood Thinner: No Monitor Applied: EKG, BP, Pulse Oximetry Supplemental Oxygen via Nasal Cannula (L/min): 2 Sedation: Versed (mg): 1 Sedation: Fentanyl (mcg): 50 Indication: Post Op Analgesia Pre-op Neuro Deficits: No Block Type: Other (FNACB ) Catheter placed: No Sterile Technique: Yes Ultrasound used: Yes Anatomy identified: Yes Visual spread of Local: Yes Neuro Stimulation: No Blood on Needle Aspiration: Yes (NEEDLE FLUSHED) Smooth Injection of Local: Yes Pain with Injection of Local: No Prep: Chlorhexadine Needle: 21 x 150 mm Stimuplex Local: 0.25% Bupivicaine w/Clonidine 20 mcg/cc Volume (cc): 20 Number of Attempts: 1 Complications: None/effective block Vitals: VSS
[2017-09-12] MEDS: Clindamycin 900 MG/50 ML 900 MG/50 ML IV.SOLN IVPB SCH (20:21)
[2017-09-13] MEDS: Ondansetron 4 MG/2 ML VIAL IVP PRN ×2 (00:09→22:13)
[2017-09-13] MEDS: Clindamycin 900 MG/50 ML 900 MG/50 ML IV.SOLN IVPB SCH (03:55)
[2017-09-13] MEDS: *HR* Enoxaparin 30 MG/0.3 ML SYRINGE SQ SCH ×2 (05:18→17:10)
[2017-09-13 05:42] LABS: Hematocrit 37.1 % (35.3-44.9); Hemoglobin 11.5 g/dL (11.5-15.4)
[2017-09-13 06:05] LABS: BUN/Creatinine Ratio 33 (6-26); Blood Urea Nitrogen 25 mg/dL (8-23); Calcium 8.8 mg/dL (8.6-10.3); Carbon Dioxide 29 mEq/L (23-29); Chloride 104 mEq/L (98-107); Glucose 123 mg/dL (70-105); Osmolality,Calculated 292 (280-300); Sodium 138 mEq/L (136-145); eGFR For African Americans > 60 (> 60); eGFR For Non-African Americans > 60 (> 60)
[2017-09-13] MEDS: *HR* Metformin 500 MG TABLET PO SCH ×2 (07:53→17:10)
[2017-09-13] MEDS: hydroCHLOROthiazide 25 MG TABLET PO SCH (07:53)
[2017-09-13] MEDS: *HR* HYDROcodone/Acet 5/325 mg TABLET PO PRN ×4 (07:55→22:07)
--- NOTE | 2017-09-13 16:05 | Orthopedics Progress Note ---
Date of Encounter: 09/13/17 Time of Encounter: 16:03 Subjective Principal diagnosis: Postoperative day #1 Interval history: Patient comfortable without complaints Left lower extremity: Knee immobilizer is in place, posterior calf is soft and nontender, neurovascular intact distally right calf is soft and nontender Postoperative day #1 status post left total knee arthroplasty, stable Plan continue OT/PT Continue DVT prophylaxis Discharge planning Objective Vital signs: Vital Signs Temp Pulse Resp BP Pulse Ox 09/13/17 15:50 98.0 F 83 16 96/57 99 09/13/17 11:36 97.4 F L 80 14 93/60 98 09/13/17 08:15 98.5 F 79 14 103/63 94 09/13/17 05:00 97.9 F 80 16 124/70 94 09/12/17 23:16 97.9 F 82 14 116/65 93 09/12/17 22:54 97.5 F L 09/12/17 20:44 96.2 F L 72 14 123/72 100 09/12/17 18:40 67 15 122/64 95 09/12/17 17:20 97.5 F L 70 14 127/78 95 09/12/17 16:55 97.8 F 74 20 153/84 93 09/12/17 16:10 97.8 F 65 13 131/69 95 Intake and Output 09/13/17 09/13/17 09/13/17 07:59 15:59 23:59 Intake Total 100 / 100 480 / 480 Output Total 50 / 50 Balance 100 / 100 430 / 430 Intake: IV Fluids 50 / 50 Cleocin Premix 900 MG/50 ML 900 50 / 50 mg In 50 ml @ 50 mls/hr IVPB Q8H [facility] Rx#:[id number] Oral 50 / 50 480 / 480 Output: Urine 50 / 50 Other: Meal Lunch Percent of Meal Consumed 95% Weight 116 kg Blood Glucose* 141 Patient Weight 09/13/17 23:59 Weight 116 kg - Labs CBC & BMP: 09/13/17 05:28 09/13/17 05:28 Labs: Abnormal lab results BUN 25 mg/dL (8-23) H 09/13/17 05:28 BUN/Creatinine Ratio 33 (6-26) H 09/13/17 05:28 Glucose 123 mg/dL (70-105) H 09/13/17 05:28 POC Glucose 141 (58-89) H 09/13/17 11:36 - VTE Documentation of Mechanical Device: Venous foot pump, device Consult Discharge Plan - Plan Referrals: Nikunj Ash Jr, MD [Primary Care Provider] -
[2017-09-14] MEDS: Ketorolac 15 MG/ML VIAL IVP PRN (00:35)
[2017-09-14] MEDS: *HR* HYDROcodone/Acet 5/325 mg TABLET PO PRN ×5 (02:45→20:59)
[2017-09-14 05:03] LABS: Hematocrit 34.8 % (35.3-44.9); Hemoglobin 10.9 g/dL (11.5-15.4)
[2017-09-14 05:20] LABS: BUN/Creatinine Ratio 34 (6-26); Blood Urea Nitrogen 30 mg/dL (8-23); Calcium 8.7 mg/dL (8.6-10.3); Carbon Dioxide 30 mEq/L (23-29); Chloride 101 mEq/L (98-107); Glucose 145 mg/dL (70-105); Osmolality,Calculated 289 (280-300); Potassium 3.4 mEq/L (3.5-5.1); Sodium 135 mEq/L (136-145); eGFR For African Americans > 60 (> 60); eGFR For Non-African Americans > 60 (> 60)
[2017-09-14] MEDS: *HR* Enoxaparin 30 MG/0.3 ML SYRINGE SQ SCH ×2 (06:14→16:04)
[2017-09-14] MEDS: hydroCHLOROthiazide 25 MG TABLET PO SCH (08:55)
[2017-09-14] MEDS: *HR* Metformin 500 MG TABLET PO SCH ×2 (08:55→16:04)
--- NOTE | 2017-09-14 12:58 | Orthopedics Progress Note ---
Date of Encounter: 09/14/17 Time of Encounter: 12:57 Subjective Principal diagnosis: Postoperative day # 2 Interval history: Patient comfortable without complaints Left lower extremity: Knee immobilizer is in place - removed along with Polar cuff, underlying dressings are clean dry intact. Posterior calf is soft and nontender, neurovascular intact distally right calf is soft and nontender Postoperative day #2 status post left total knee arthroplasty, stable Plan continue OT/PT Continue DVT prophylaxis Discharge planning Objective Vital signs: Vital Signs Temp Pulse Resp BP Pulse Ox 09/14/17 11:26 99.1 F 93 16 125/73 93 09/14/17 06:59 98.7 F 101 18 128/76 90 09/14/17 04:24 99 F 84 16 135/75 96 09/13/17 23:37 99.1 F 100 16 155/83 93 09/13/17 19:41 98.5 F 92 16 119/75 98 09/13/17 15:50 98.0 F 83 16 96/57 99 Intake and Output 09/13/17 09/14/17 09/14/17 23:59 07:59 15:59 Intake Total 100 / 100 50 / 50 0 / 0 Output Total 300 / 300 Balance -200 / -200 50 / 50 0 / 0 Intake: Oral 100 / 100 50 / 50 0 / 0 Output: Urine 300 / 300 Other: # Voids 1 1 1 Weight 118 kg Blood Glucose* 159 148 123 Patient Weight 09/14/17 23:59 Weight 118 kg - Labs CBC & BMP: 09/14/17 04:47 09/14/17 04:47 Labs: Abnormal lab results Hgb 10.9 g/dL (11.5-15.4) L 09/14/17 04:47 Hct 34.8 % (35.3-44.9) L 09/14/17 04:47 Sodium 135 mEq/L (136-145) L 09/14/17 04:47 Potassium 3.4 mEq/L (3.5-5.1) L 09/14/17 04:47 Carbon Dioxide 30 mEq/L (23-29) H 09/14/17 04:47 BUN 30 mg/dL (8-23) H 09/14/17 04:47 BUN/Creatinine Ratio 34 (6-26) H 09/14/17 04:47 Glucose 145 mg/dL (70-105) H 09/14/17 04:47 POC Glucose 148 (58-89) H 09/14/17 06:55 - VTE Documentation of Mechanical Device: Venous foot pump, device Consult Discharge Plan - Plan Referrals: Nikunj Ash Jr, MD [Primary Care Provider] -
[2017-09-15] MEDS: *HR* HYDROcodone/Acet 5/325 mg TABLET PO PRN ×6 (01:10→22:33)
[2017-09-15] MEDS: *HR* Enoxaparin 30 MG/0.3 ML SYRINGE SQ SCH ×2 (05:07→16:38)
[2017-09-15] MEDS: *HR* Metformin 500 MG TABLET PO SCH ×2 (07:28→16:37)
[2017-09-15] MEDS: hydroCHLOROthiazide 25 MG TABLET PO SCH (08:30)
--- NOTE | 2017-09-15 08:34 | Orthopedics Progress Note ---
Date of Encounter: 09/15/17 Time of Encounter: 08:32 Subjective Interval history: No overnight issues. Pain well controlled. No f/c/ns. No calf pain. AFVSS LLE: Dress c/d/i Moderate effusion, no erythema Calf is soft, non-tender DNVI, SILT s/s/t/sp/dp POD#3 s/p L TKA -Continue PT/OT -DVT ppx -PO pain control -D/c today if able to be arranged with [facility] Objective Vital signs: Vital Signs Temp Pulse Resp BP Pulse Ox 09/15/17 06:56 98.4 F 80 16 134/78 98 09/14/17 23:48 98.8 F 102 16 103/69 92 09/14/17 19:32 97.8 F 107 16 114/73 92 09/14/17 14:38 97.8 F 98 16 119/66 95 09/14/17 11:26 99.1 F 93 16 125/73 93 Intake and Output 09/14/17 09/15/17 09/15/17 23:59 07:59 15:59 Intake Total 530 / 530 50 / 50 Output Total 100 / 100 Balance 530 / 530 -50 / -50 Intake: Oral 530 / 530 50 / 50 Output: Urine 100 / 100 Other: Meal Dinner Percent of Meal Consumed 100% # Voids 1 Blood Glucose* 174 124 - Labs CBC & BMP: 09/14/17 04:47 09/14/17 04:47 Labs: Abnormal lab results Hgb 10.9 g/dL (11.5-15.4) L 09/14/17 04:47 Hct 34.8 % (35.3-44.9) L 09/14/17 04:47 Sodium 135 mEq/L (136-145) L 09/14/17 04:47 Potassium 3.4 mEq/L (3.5-5.1) L 09/14/17 04:47 Carbon Dioxide 30 mEq/L (23-29) H 09/14/17 04:47 BUN 30 mg/dL (8-23) H 09/14/17 04:47 BUN/Creatinine Ratio 34 (6-26) H 09/14/17 04:47 Glucose 145 mg/dL (70-105) H 09/14/17 04:47 POC Glucose 124 (58-89) H 09/15/17 06:58 - VTE Documentation of Mechanical Device: Venous foot pump, device Consult Discharge Plan - Plan Additional Instructions: DISCHARGE INSTRUCTIONS Dr. Marinelli Total Knee Replacement Wound Care -Keep wound / incision area clean and dry. -Keep the clear dressing on until follow up. -No baths or swimming until otherwise instructed. -Keep the wound dry until follow up. No submerging the wound under standing water until cleared by your physician (no baths, hot tubs, swimming pools, etc) . Sponge baths are the best way to perform personal hygiene while at the same time protecting the wound from moisture. -No scrubbing the wound. You may "pad dry" the wound, but do not rub, as this may open up he wound and pre-dispose to wound infection. -Do not apply lotions or creams to incision site, unless instructed otherwise. -Observe for redness, swelling, or drainage. Please call the clinic immediately if you have fevers, chills with warmth/redness surrounding wound site or if you notice pus drainage from the wound site Activity -No heavy lifting objects greater than 10 pounds. -No driving while on narcotic pain medication. -You may be weight-bear as tolerated on both of your lower extremities. -Use crutches or a walker for ambulation. -Continue range of motion exercises as instructed by the physical therapist Reducing the Risk of Blood Clots -You will need to complete a total 4 week course of enteric coated aspirin 325 mg twice daily. -Wear knee high compression hose 23 hours per day. Discharge Pain Medications -You will be given a prescription for pain medication. Wean off as tolerated. Do not wait to take the pain medication until the pain is severe, as it will be difficult to "catch up" once this occurs. The pain medication usually reaches its full effect ~1 hour after ingesting. -Your prescribed pain medication may contain Tylenol. You must be careful not to exceed 4,000 mg (4 g) of Tylenol (or generic equivalent), from all sources, within a single 24-hour period. -Some common side effects of the narcotic pain medications (Percocet, Oxycodone , Vicodin, etc) include nausea and itching. Benadryl is a great over the counter medication that helps calm your stomach, decreases your anxiety levels, and minimizes the itching. You can easily purchase this at your local pharmacy as an [id number] medication. Please abide by the instructions as printed on t-he bottle. If your nausea persists, make sure to take small amounts of crackers or other back tufter foods. Referrals: Nikunj Ash Jr, MD [Primary Care Provider] -
[2017-09-15 12:13] LABS: Hematocrit 37.1 % (35.3-44.9); Hemoglobin 11.8 g/dL (11.5-15.4)
[2017-09-16] MEDS: *HR* HYDROcodone/Acet 5/325 mg TABLET PO PRN ×2 (06:26→11:34)
[2017-09-16] MEDS: *HR* Enoxaparin 30 MG/0.3 ML SYRINGE SQ SCH (06:26)
[2017-09-16] MEDS: *HR* Metformin 500 MG TABLET PO SCH (08:11)
[2017-09-16] MEDS: hydroCHLOROthiazide 25 MG TABLET PO SCH (08:11)
[2017-09-16] MEDS: Ketorolac 15 MG/ML VIAL IVP PRN (08:15)
--- NOTE | 2017-09-16 09:19 | Orthopedics Progress Note ---
Date of Encounter: 09/16/17 Time of Encounter: 09:18 Subjective Principal diagnosis: Postoperative day # 4 Interval history: No overnight issues. Pain well controlled. No f/c/ns. No calf pain. AFVSS LLE: Dress c/d/i Moderate effusion, no erythema Calf is soft, non-tender DNVI, SILT s/s/t/sp/dp POD#4 s/p L TKA -Continue PT/OT -DVT ppx -PO pain control -D/c likely today to [facility] Objective Vital signs: Vital Signs Temp Pulse Resp BP Pulse Ox 09/16/17 06:46 98.7 F 92 16 122/78 96 09/16/17 02:44 98.8 F 85 14 124/76 93 09/15/17 23:04 98.6 F 93 16 114/69 94 09/15/17 18:37 98.1 F 98 18 123/69 95 09/15/17 14:45 97.5 F L 96 18 113/77 96 09/15/17 14:21 95 116/69 09/15/17 11:11 97.5 F L 88 16 90/55 95 Intake and Output 09/15/17 09/16/17 09/16/17 23:59 07:59 15:59 Intake Total 650 / 650 0 / 0 120 / 120 Output Total 0 / 0 0 / 0 Balance 650 / 650 0 / 0 120 / 120 Intake: Oral 650 / 650 0 / 0 120 / 120 Output: Urine 0 / 0 0 / 0 Other: Meal Breakfast Percent of Meal Consumed 75% Stool Size Small Moderate Stool Consistency soft soft Stool Color Brown Brown # Voids 1 1 # Bowel Movements 1 1 Weight 117.68 kg Blood Glucose* 140 126 Patient Weight 09/16/17 23:59 Weight 117.68 kg - Labs CBC & BMP: 09/15/17 12:02 09/14/17 04:47 Labs: Abnormal lab results Sodium 135 mEq/L (136-145) L 09/14/17 04:47 Potassium 3.4 mEq/L (3.5-5.1) L 09/14/17 04:47 Carbon Dioxide 30 mEq/L (23-29) H 09/14/17 04:47 BUN 30 mg/dL (8-23) H 09/14/17 04:47 BUN/Creatinine Ratio 34 (6-26) H 09/14/17 04:47 Glucose 145 mg/dL (70-105) H 09/14/17 04:47 POC Glucose 126 (58-89) H 09/16/17 06:55 - VTE Documentation of Mechanical Device: Venous foot pump, device Consult Discharge Plan - Plan Additional Instructions: DISCHARGE INSTRUCTIONS Dr. Marinelli Total Knee Replacement Wound Care -Keep wound / incision area clean and dry. -Keep the clear dressing on until follow up. -No baths or swimming until otherwise instructed. -Keep the wound dry until follow up. No submerging the wound under standing water until cleared by your physician (no baths, hot tubs, swimming pools, etc) . Sponge baths are the best way to perform personal hygiene while at the same time protecting the wound from moisture. -No scrubbing the wound. You may "pad dry" the wound, but do not rub, as this may open up he wound and pre-dispose to wound infection. -Do not apply lotions or creams to incision site, unless instructed otherwise. -Observe for redness, swelling, or drainage. Please call the clinic immediately if you have fevers, chills with warmth/redness surrounding wound site or if you notice pus drainage from the wound site Activity -No heavy lifting objects greater than 10 pounds. -No driving while on narcotic pain medication. -You may be weight-bear as tolerated on both of your lower extremities. -Use crutches or a walker for ambulation. -Continue range of motion exercises as instructed by the physical therapist Reducing the Risk of Blood Clots -You will need to complete a total 4 week course of enteric coated aspirin 325 mg twice daily. -Wear knee high compression hose 23 hours per day. Discharge Pain Medications -You will be given a prescription for pain medication. Wean off as tolerated. Do not wait to take the pain medication until the pain is severe, as it will be difficult to "catch up" once this occurs. The pain medication usually reaches its full effect ~1 hour after ingesting. -Your prescribed pain medication may contain Tylenol. You must be careful not to exceed 4,000 mg (4 g) of Tylenol (or generic equivalent), from all sources, within a single 24-hour period. -Some common side effects of the narcotic pain medications (Percocet, Oxycodone , Vicodin, etc) include nausea and itching. Benadryl is a great over the counter medication that helps calm your stomach, decreases your anxiety levels, and minimizes the itching. You can easily purchase this at your local pharmacy as an jtja-[id number]-hakikng medication. Please abide by the instructions as printed on t-he bottle. If your nausea persists, make sure to take small amounts of crackers or other florist's decorator foods. Referrals: Nikunj Ash Jr, MD [Primary Care Provider] -
--- NOTE | 2017-09-16 13:39 | Discharge Summary ---
Date of Encounter: 09/16/17 Time of Encounter: 13:37 - Discharge Diagnosis (1) Status post left knee replacement Priority: Primary Status: Acute - Hospital Course Hospital course: Ms. Keyes is a 77 year old female admitted follow a left total knee replacement. She did well post operatively and was able to pass PT. She was discharged in stable condition to SNF on POD#4. - Time Spent with Patient Total time spent providing and/or coordinating discharge services: - Discharge Medications Home Medications: Cetirizine HCl [Zyrtec] 10 mg PO DAILY PRN 09/18/16 [History] Tramadol HCl [Ultram] 50 mg PO Q6H PRN 09/18/16 [History] metFORMIN [Glucophage] 500 mg PO BIDWM 09/18/16 [History] Albuterol Sulfate [Albuterol Inhaler] 2 puff IH Q4HR PRN 11/20/16 [History] Aspirin Enteric Coated [Aspirin EC] 81 mg PO DAILY 11/20/16 [History] hydroCHLOROthiazide [Hydrochlorothiazide] 12.5 mg PO DAILY #30 tablet 11/22/16 [ Rx] Losartan Potassium [Cozaar] 50 mg PO DAILY 09/12/17 [History] Meloxicam [Mobic] 15 mg PO DAILY 09/12/17 [History] Allergies/Adverse Reactions: 3 Allergy/AdvReac Type Severity Reaction Status Date / Time azithromycin Allergy Swelling Verified 09/18/16 18:51 [From Zithromax Z-Silvano] of Lip/Tongue/Throat cephalexin [From Keflex] Allergy Rash Verified 09/18/16 18:51 Date of admission: 09/12/17 16:42 Primary care physician: Nikunj Ash Jr, MD Consults: 09/12/17 17:18 Consult to Occupational Therapy [CONS] Routine Comment: Evaluate, develop and implement POC Reason for Consult: post knee surgery Does patient have active BEDREST order?: No Is patient medically & hemodynamically stable?: Yes Consult to Orthopedic Navigator [CONS] [CONS] Routine Consult to Physical Therapy [CONS] Routine Comment: Evaluate, develop and impliment POC Reason for Consult: post knee surgery Does patient have active BEDREST order?: No Is patient medically & hemodynamically stable?: Yes Consult to Application Consultant [CONS] Routine Reason for SW Consult: post op joint replacement RT Post Op Consult [CONS] Routine 09/12/17 20:00 Consult to Pastoral Services [CONS] Routine Comment: nursing consult - pt request Anticipated date of discharge: 09/16/17 - VTE Documentation of Mechanical Device: Venous foot pump, device Labs on day of discharge: Labs from last 24 hours 09/16/17 09/16/17 09/15/17 11:05 06:55 20:11 POC Glucose 126 H 126 H 140 H 09/15/17 16:01 POC Glucose 134 H - Impressions ITS Impressions Knee X-Ray 09/12/17 15:26 IMPRESSION: Expected postsurgical changes from left total knee arthroplasty. D/ / Khushbu Solorio MD / Khushbu Solorio MD Interpreting Provider: Khushbu Solorio MD - Patient Status Disposition: Transfer SNF Condition: Good Functional capacity at discharge: uses cane/walker - Discharge Instructions Follow Up With: Nicolas Marinelli MD [Non-Partnered Physician] - 09/18/17 3:45 pm Additional Instructions: DISCHARGE INSTRUCTIONS Dr. Marinelli Total Knee Replacement Wound Care -Keep wound / incision area clean and dry. -Keep the clear dressing on until follow up. -No baths or swimming until otherwise instructed. -Keep the wound dry until follow up. No submerging the wound under standing water until cleared by your physician (no baths, hot tubs, swimming pools, etc) . Sponge baths are the best way to perform personal hygiene while at the same time protecting the wound from moisture. -No scrubbing the wound. You may "pad dry" the wound, but do not rub, as this may open up he wound and pre-dispose to wound infection. -Do not apply lotions or creams to incision site, unless instructed otherwise. -Observe for redness, swelling, or drainage. Please call the clinic immediately if you have fevers, chills with warmth/redness surrounding wound site or if you notice pus drainage from the wound site Activity -No heavy lifting objects greater than 10 pounds. -No driving while on narcotic pain medication. -You may be weight-bear as tolerated on both of your lower extremities. -Use crutches or a walker for ambulation. -Continue range of motion exercises as instructed by the physical therapist Reducing the Risk of Blood Clots -You will need to complete a total 4 week course of enteric coated aspirin 325 mg twice daily. -Wear knee high compression hose 23 hours per day. Discharge Pain Medications -You will be given a prescription for pain medication. Wean off as tolerated. Do not wait to take the pain medication until the pain is severe, as it will be difficult to "catch up" once this occurs. The pain medication usually reaches its full effect ~1 hour after ingesting. -Your prescribed pain medication may contain Tylenol. You must be careful not to exceed 4,000 mg (4 g) of Tylenol (or generic equivalent), from all sources, within a single 24-hour period. -Some common side effects of the narcotic pain medications (Percocet, Oxycodone , Vicodin, etc) include nausea and itching. Benadryl is a great over the counter medication that helps calm your stomach, decreases your anxiety levels, and minimizes the itching. You can easily purchase this at your local pharmacy as an vezy-iyy-wyibwyz medication. Please abide by the instructions as printed on t-he bottle. If your nausea persists, make sure to take small amounts of crackers or other entertainment manager foods. - Diet and Activity Activity: as per physical therapy Diet: advance to your usual diet
[2017-09-16 15:28] VITALS: BP 111/75
== END 2017-09-16 15:32 | DRG 470 ==
LOC: SAMDAY 09:14 → 3NENU 16:42
PROVIDERS: ADMIT Orthopaedic Surgery Sports Medicine; ATTEND Orthopaedic Surgery Sports Medicine

== ENCOUNTER 2018-02-26 06:40 | Inpatient (IN) ==
[2018-02-26] MEDS ORDERED: Ibuprofen 600 MG TABLET PO ONE (07:21)
[2018-02-26] MEDS ORDERED: *HR* OxyCODONE/APAP 5/325 TABLET PO ONE ×2 (07:21→08:29)
--- NOTE | 2018-02-26 07:42 | Emergency Department Note ---
Disposition Clinical Impression: Unable to walk, Knee effusion, right Disposition: Admitted As Inpatient Condition: Good Lower Extremity Injury HPI - General Chief Complaint: ED Extremity Injury, Lower Stated Complaint: fall Time Seen by Provider: 02/26/18 06:46 Source: patient Mode of arrival: ambulatory Limitations: other Nursing Notes Reviewed: Yes Vital Signs Reviewed: Yes - History of Present Illness HPI Narrative: 78 year old female presents with right knee pain. Pt stated she was tripped and fell on her right side knee from standing position this morning. Pt stated she could stand up after fall. But she couldn't put any weight on right leg now. pt denied hit her head or neck. Not on blood thinner. Pt reported history of arthritis and left knee replacement. Pt Subjective Complaint: knee injury Injury location: Right knee Onset (ago): hour(s) Mechanism of Injury: blunt Context: fall Place: home Pain Severity: moderate Pain Scale: 8 - Related Data Home Medications Medication Instructions Recorded Confirmed Cetirizine HCl [Zyrtec] 10 mg PO DAILY PRN 09/18/16 02/26/18 Tramadol HCl [Ultram] 50 mg PO Q6H PRN 09/18/16 02/26/18 metFORMIN [Glucophage] 500 mg PO BIDWM 09/18/16 02/26/18 Albuterol Sulfate [Albuterol 2 puff IH Q4HR PRN 11/20/16 02/26/18 Inhaler] Aspirin Enteric Coated [Aspirin EC] 81 mg PO DAILY 11/20/16 02/26/18 Losartan Potassium [Cozaar] 50 mg PO DAILY 09/12/17 02/26/18 Meloxicam [Mobic] 15 mg PO DAILY 09/12/17 02/26/18 Previous Rx's Medication Instructions Recorded hydroCHLOROthiazide 12.5 mg PO DAILY #30 tablet 11/22/16 [Hydrochlorothiazide] Allergies Allergy/AdvReac Type Severity Reaction Status Date / Time azithromycin Allergy Swelling Verified 09/18/16 18:51 [From Zithromax Z-Silvano] of Lip/Tongue/Throat cephalexin [From Keflex] Allergy Rash Verified 09/18/16 18:51 Constitutional: Denies: fever, chills, weakness, weight change Eyes: Denies: eye pain, eye discharge, vision change ENT ED: Denies: ear pain, throat pain, dental pain, hearing loss, epistaxis, congestion, dysphagia Cardiovascular: Denies: chest pain, palpitations, dyspnea on exertion, edema, syncope Respiratory: Denies: cough, dyspnea, wheezes, hemoptysis, stridor Gastrointestinal: Denies: abdominal pain, nausea, vomiting, diarrhea, constipation, hematemesis, melena, hematochezia Genitourinary: Denies: dysuria, frequency, hematuria, discharge Musculoskeletal: Reports: arthralgia (right knee pain and swelling). Denies: back pain, neck pain, myalgia Integumentary: Denies: rash, abrasion, lesions Neurological: Denies: headache, weakness, numbness, paresthesias, confusion, abnormal gait, vertigo Psychiatric: Denies: anxiety, depression, suicidal thoughts, homicidal thoughts , auditory hallucinations, visual hallucinations Endocrine: Denies: fatigue Hematological/Lymphatic: Denies: easy bleeding, easy bruising Allergic/Immunologic: Denies: facial swelling, urticaria Past Medical History - Past Medical History Medical history: Reports: arthritis, asthma, diabetes, other Surgical history: Reports: appendectomy, cholecystectomy Psychiatric history: Reports: no psych history - Social History Smoking Status: Never smoker Smokeless Tobacco Status: No Alcohol use: Reports: none Drug use: Reports: none Physical Exam - General Limitations: other General appearance: alert - Head Head exam: atraumatic, normocephalic, normal inspection - Eye Eye exam: Present: normal appearance, PERRL, EOMI - ENT ENT exam: normal exam, normal oropharynx, mucous membranes moist - Neck Neck exam: Present: normal inspection, full ROM, trachea midline - Chest Chest inspection: Present: normal inspection, symmetric chest wall rise - Respiratory Respiratory exam: Present: normal lung sounds bilaterally - Cardiovascular Cardiovascular exam: Present: regular rate, normal rhythm, normal heart sounds - Abdominal Exam Abdominal exam: Present: soft, Non-Tender. Absent: tenderness, distention, guarding, rebound, rigidity - Expanded Lower Extremity Exam Hip/Pelvis exam: Present: normal inspection, full ROM. Absent: tenderness, swelling Upper leg exam: Present: normal inspection, full ROM. Absent: tenderness, swelling Knee exam: Present: tenderness. Absent: normal inspection (right knee mild swelling, limited of ROM of flexion, tender to palpation on anterior aspect), full ROM Lower leg exam: Present: normal inspection, full ROM Foot/toe exam: Present: normal inspection, full ROM Neurovascular/Tendon exam: Present: normal capillary refill. Absent: motor deficit, sensory deficit, tendon deficit - Back Exam Back exam: Present: normal inspection, full ROM. Absent: tenderness - Neurological Exam Neurological exam: Present: alert, oriented X3 - Psychiatric Psychiatric exam: Present: normal affect, normal mood - Skin Skin exam: Present: warm, dry, intact, normal color Course Vital Signs Temperature 97.9 F 02/26/18 06:44 Pulse Rate 83 02/26/18 06:44 Respiratory Rate 18 02/26/18 06:44 Blood Pressure 193/93 02/26/18 06:44 O2 Sat by Pulse Oximetry 97 02/26/18 06:44 Temperature 97.7 F 02/26/18 09:39 Pulse Rate 68 02/26/18 09:39 Respiratory Rate 17 02/26/18 09:39 Blood Pressure 175/82 02/26/18 09:41 O2 Sat by Pulse Oximetry 94 02/26/18 09:39 Oxygen Delivery Oxygen Delivery Room Air Extremity Injury, Lower - MDM Narrative Medical decision making narrative: 78 year old female with BMI 38 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 Pt complained of severe pain. No weight bearing. pt reported history of severe arthritis and left knee replacement. xray of right knee: loose body in posterior of knee, no fracture noted, moderate effusion. Pt stated she lives by herself without help at home. Discussed the case with Dr. Wolfe, pt will be admit to hospital for PT evaluation and social evaluation. Spoke with hospitalist in the phone, pt is accepted. - Lab Data Result diagrams: 02/26/18 08:26 02/26/18 08:26 Lab Results 02/26/18 02/26/18 Range/Units 08:26 08:26 WBC 10.7 (4.3-11.1) K/mcL RBC 5.31 H (3.82-4.97) M/mcL Hgb 14.1 (11.5-15.4) g/dL Hct 43.7 (35.3-44.9) % MCV 82.3 L (83.0-100.0) fL MCH 26.6 L (28.0-33.3) pg MCHC 32.3 (31.6-35.5) g/dL RDW 15.8 H (11.5-14.5) % Plt Count 206 (140-400) K/mcL MPV 9.9 (9.4-12.4) fL Immature Gran % 0.3 (0-4) % Seg Neutrophils % 76.5 % Lymphocytes % 16.0 % Monocytes % 6.1 % Eosinophils % 0.6 % Basophils % 0.5 % Neutrophils # 8.2 (1.6-8.9) K/mcL Lymphocytes # 1.7 (0.6-4.6) K/mcL Monocytes # 0.7 (0.0-1.3) K/mcL Eosinophils # 0.1 (0.0-0.6) K/mcL Basophils # 0.1 (0.0-0.2) K/mcL Sodium 134 L (136-145) mEq/L Potassium 3.8 (3.5-5.1) mEq/L Chloride 107 (98-107) mEq/L Carbon Dioxide 25 (23-29) mEq/L BUN 31 H (8-23) mg/dL Creatinine 0.63 (0.60-1.20) mg/dL Est GFR ( Amer) > 60 (> 60) Est GFR (Non-Af Amer) > 60 (> 60) BUN/Creatinine Ratio 49 H (6-26) Glucose 133 H (70-105) mg/dL Calculated Osmolality 286 (280-300) Calcium 9.8 (8.6-10.3) mg/dL Total Bilirubin 0.6 (0.3-1.0) mg/dL AST 14 (13-39) Units/L ALT 9 (7-52) Units/L Alkaline Phosphatase 128 H (34-104) Units/L Serum Total Protein 7.7 (6.4-8.9) g/dL Albumin 4.2 (3.5-5.7) g/dL Globulin 3.5 (2.4-3.5) g/dL Albumin/Globulin Ratio 1.2 (1.1-2.2)
[2018-02-26 08:42] LABS: Basophils # 0.1 K/mcL (0.0-0.2); Basophils % 0.5 %; Eosinophils # 0.1 K/mcL (0.0-0.6); Eosinophils % 0.6 %; Hematocrit 43.7 % (35.3-44.9); Hemoglobin 14.1 g/dL (11.5-15.4); Immature Granulocytes % 0.3 % (0-4); Lymphocytes # 1.7 K/mcL (0.6-4.6); Mean Corpuscular HGB Conc 32.3 g/dL (31.6-35.5); Mean Corpuscular Hemoglobin 26.6 pg (28.0-33.3); Mean Corpuscular Volume 82.3 fL (83.0-100.0); Mean Platelet Volume 9.9 fL (9.4-12.4); Monocytes # 0.7 K/mcL (0.0-1.3); Monocytes % 6.1 %; Neutrophils # 8.2 K/mcL (1.6-8.9); Platelet Count 206 K/mcL (140-400); Red Blood Count 5.31 M/mcL (3.82-4.97); Red Cell Distribution Width 15.8 % (11.5-14.5); Segmented Neutrophils % 76.5 %
[2018-02-26 09:02] LABS: Alanine Aminotransferase 9 Units/L (7-52); Albumin 4.2 g/dL (3.5-5.7); Albumin/Globulin Ratio 1.2 (1.1-2.2); Alkaline Phosphatase 128 Units/L (34-104); Aspartate Amino Transferase 14 Units/L (13-39); BUN/Creatinine Ratio 49 (6-26); Bilirubin,Total 0.6 mg/dL (0.3-1.0); Blood Urea Nitrogen 31 mg/dL (8-23); Calcium 9.8 mg/dL (8.6-10.3); Carbon Dioxide 25 mEq/L (23-29); Chloride 107 mEq/L (98-107); Globulin 3.5 g/dL (2.4-3.5); Glucose 133 mg/dL (70-105); Osmolality,Calculated 286 (280-300); Potassium 3.8 mEq/L (3.5-5.1); Sodium 134 mEq/L (136-145); Total Protein 7.7 g/dL (6.4-8.9); eGFR For Non-African Americans > 60 (> 60)
--- NOTE | 2018-02-26 10:34 | Internal Med Progress Note ---
<Mounika Martinez - Last Filed: 02/26/18 11:10> Hospitalist Progress Note - Encounter Date of Encounter: 02/26/18 - Exam Vitals: Temp Pulse Resp BP Pulse Ox 97.7 F 68 17 175/82 94 02/26/18 09:39 02/26/18 09:39 02/26/18 09:39 02/26/18 09:41 02/26/18 09:39 - Assessment and Plan (1) Type 2 diabetes mellitus Current Visit: No Status: Chronic (2) Hypertension Current Visit: No Status: Chronic (3) DVT prophylaxis Current Visit: No Status: Acute (4) Unable to walk Current Visit: Yes Status: Acute (5) Knee effusion, right Current Visit: Yes Status: Acute - Time Spent with Patient Total time spent is greater than 50% in coordination of care (as documented) at patient's floor/unit and/or counseling patient: Internal Medicine: Result - Labs CBC & Chem 7: 02/26/18 08:26 02/26/18 08:26 Consult Discharge Plan - Plan Referrals: Nikunj Ash Jr, MD [Primary Care Provider] - - Attending Attestation I examined this patient and my medical decision-making was reviewed with the Nurse Practitioner. I agree with the documented findings, disposition and treatment plan as described except to the extent set forth below. 78 year old female presented after mechanical fall. X ray of knee shows possibly a fracture and moderate knee effusion. Patient is in no acute distress on my exam but knee is tender to touch with limited ROM. Will need Ortho to evaluate patient with PT/OT and SW consults as patient lives alone and not able to care for herself. <Clara Howard - Last Filed: 02/26/18 15:19> Hospitalist Progress Note - Encounter Date of Encounter: 02/26/18 Time of Encounter: 08:00 - Subjective Interval History: 78 yo female whom entered the emergency department per EMS yesterday, after sustaining a fall at her home, with right knee pain, inability to bear weight d/ t severe pain . Reports that she was in her kitchen and fell over a "piece of equipment " Going from a standing position, landing on the right knee. States that most of the pain is located in the right posterior knee. Reports her pain is well controlled with the percocet that she has received in ED, and micaela to continue that. States she is unable to bear any weight on the right knee, today d.t pain, and discomfort, states is not able to bend the right knee d/t severe pain in posterior knee. S/P total knee replacement left knee August of this year. Xray of right knee shows possible loose body and occult fracture. Was admitted to telemetry, for further evaluation. *HX of HTN, Reports that she takes her daily blood pressure medicaitons and that she has moderate control, w/o known CKD. *Type2 diabetes , well controlled on Metformin, reports her home fasting blood sugars range from 9 to 110. 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 Reports she was doing well with PT until the fall yesterday. - Exam Vitals: Temp Pulse Resp BP Pulse Ox 97.7 F 68 17 175/82 94 02/26/18 09:39 02/26/18 09:39 02/26/18 09:39 02/26/18 09:41 02/26/18 09:39 Exam: AAO, x 3 resting comfortable in bed, in room. RRR, negative for murmur, gallop, or rub, distal pulses 2+, Lungs CTAB Abdomen soft BS x 4, negative for rebound, Ty's sign, or McBurny's point. No mass or hernia FROM upper ext, no deformities Right lower ext: Decreased ROM right knee with flexion, unable to attempt to bend d/t pain and discomfort, tenderness and pain right post knee with palp, effusion noted midline joint space, with prepatellar discomfort with palpation. Left lower ext: well healed mid line surgical incision left anterior knee distal pulses intact 2+ - Assessment and Plan (1) Knee effusion, right Current Visit: Yes Status: Acute Assessment and Plan: Right knee pain with effusion after sustaining fall * Orthopedic referral * Percocet q4h prn * bedside commode * Assess for pain and efficacy of oral pain management *assist prn (2) Unable to walk Current Visit: Yes Status: Acute Assessment and Plan: Remain non-weight bearing until orthopedic consult has been completed (3) Type 2 diabetes mellitus Current Visit: No Status: Chronic Assessment and Plan: *NPO at this time until patient is evaluated per Orthopedics *0.9% NS continues @ 100 ml per hour * Carpet Technician consult (4) Hypertension Current Visit: No Status: Chronic Assessment and Plan: * Restart on Losartan 50 mg daily *Vital signs q4h (5) DVT prophylaxis Current Visit: No Status: Acute Assessment and Plan: Patient is non weight bearing, will start DVT protocol - Time Spent with Patient Total time spent is greater than 50% in coordination of care (as documented) at patient's floor/unit and/or counseling patient: less than 15 minutes Plan of Care Discussed with: patient Internal Medicine: Result - Labs CBC & Chem 7: 02/26/18 08:26 02/26/18 08:26 <Mounika Martinez - Last Filed: 02/26/18 11:10> (1) Type 2 diabetes mellitus Qualifiers: Diabetes mellitus veterinary medicine teacher insulin use: without veterinary medicine teacher use Diabetes mellitus complication status: without complication Qualified Code(s): E11.9 - Type 2 diabetes mellitus without complications (2) Hypertension Qualifiers: Hypertension type: essential hypertension Qualified Code(s): I10 - Essential (primary) hypertension <Clara Howard - Last Filed: 02/26/18 15:19> (3) Type 2 diabetes mellitus Qualifiers: Diabetes mellitus veterinary medicine teacher insulin use: without veterinary medicine teacher use Diabetes mellitus complication status: without complication Qualified Code(s): E11.9 - Type 2 diabetes mellitus without complications (4) Hypertension Qualifiers: Hypertension type: essential hypertension Qualified Code(s): I10 - Essential (primary) hypertension
--- NOTE | 2018-02-26 13:18 | Internal Med History&Physical ---
Date of Encounter: 02/26/18 Time of Encounter: 13:00 Internal Medicine - H&P: HPI History of present illness: 78 yo female whom entered the emergency department per EMS yesterday, after sustaining a fall at her home, with right knee pain, inability to bear weight d/ t severe pain . Reports that she was in her kitchen and fell over a "piece of equipment " Going from a standing position, landing on the right knee. States that most of the pain is located in the right posterior knee. Reports her pain is well controlled with the percocet that she has received in ED, and whishes to continue that. States she is unable to bear any weight on the right knee, today d.t pain, and discomfort, states is not able to bend the right knee d/t severe pain in posterior knee. S/P total knee replacement left knee August of this year. Xray of right knee shows possible loose body and occult fracture. Was admitted to telemetry, for further evaluation. Past Med Surg Social Fam HX - Past Medical History Medical history: arthritis, asthma, diabetes, other Additional medical history: IBS Psychiatric history: no psych history - Past Surgical History Surgical History: appendectomy, cholecystectomy, knee replacement Additional surgical history: Left knee replacement. - Social History Smoking Status: Former smoker Smokeless Tobacco Status: No Alcohol use: none Drug use: none - Family History Paternal Grandfather Hx Family Cardiac Disorders: Yes Hx Family Cancer: Yes Internal Medicine - H&P: Meds Cetirizine HCl [Zyrtec] 10 mg PO DAILY PRN 09/18/16 [History] Tramadol HCl [Ultram] 50 mg PO Q6H PRN 09/18/16 [History] metFORMIN [Glucophage] 500 mg PO BIDWM 09/18/16 [History] Albuterol Sulfate [Albuterol Inhaler] 2 puff IH Q4HR PRN 11/20/16 [History] Aspirin Enteric Coated [Aspirin EC] 81 mg PO DAILY 11/20/16 [History] hydroCHLOROthiazide [Hydrochlorothiazide] 12.5 mg PO DAILY #30 tablet 11/22/16 [ Rx] Losartan Potassium [Cozaar] 50 mg PO DAILY 09/12/17 [History] Meloxicam [Mobic] 15 mg PO DAILY 09/12/17 [History] 3 Allergy/AdvReac Type Severity Reaction Status Date / Time azithromycin Allergy Swelling Verified 09/18/16 18:51 [From Zithromax Z-Silvano] of Lip/Tongue/Throat cephalexin [From Keflex] Allergy Rash Verified 09/18/16 18:51 All Systems PM: A 10-system review of systems was performed and is negative for pertinent findings except as documented above in the HPI. Review of systems: See HPI - Constitutional Vitals: Temp Pulse Resp BP Pulse Ox 97.8 F 69 17 128/72 95 02/26/18 11:51 02/26/18 11:51 02/26/18 11:51 02/26/18 11:51 02/26/18 11:51 Exam: Gen: AAOx3, NAD CVS: RRR Lungs: CTAB Abd: NT/ND Ext: decreased ROM in right knee, effusion noted, tender to palpation. No erythema, no warmth. Tibial pulses 2+ and equal on both extremities. Left knee exam unremarkable. Internal Med - H&P Results - Labs CBC & Chem 7: 02/26/18 08:26 02/26/18 08:26 - Assessment and plan (1) Type 2 diabetes mellitus Current Visit: No Status: Chronic Assessment and plan: *NPO at this time until patient is evaluated per Orthopedics *0.9% NS continues @ 100 ml per hour * Accident Investigator consult Qualifiers: Diabetes mellitus usp insulin use: without long term care pharmacist use Diabetes mellitus complication status: without complication Qualified Code(s): E11.9 - Type 2 diabetes mellitus without complications (2) Hypertension Current Visit: No Status: Chronic Assessment and plan: * Restart on Losartan 50 mg daily *Vital signs q4h Qualifiers: Hypertension type: essential hypertension Qualified Code(s): I10 - Essential (primary) hypertension (3) DVT prophylaxis Current Visit: No Status: Acute Assessment and plan: Patient is non weight bearing, will start DVT protocol (4) Unable to walk Current Visit: Yes Status: Acute Assessment and plan: Remain non-weight bearing until orthopedic consult has been completed (5) Knee effusion, right Current Visit: Yes Status: Acute Assessment and plan: Right knee pain with effusion after sustaining fall * Orthopedic referral * Percocet q4h prn * bedside commode * Assess for pain and efficacy of oral pain management *assist prn - Time Spent With Patient Total time spent is greater than 50% in coordination of care (as documented) at patient's floor/unit and/or counseling patient:
[2018-02-26] MEDS: *HR* OxyCODONE/APAP 5/325 TABLET PO PRN ×2 (13:47→23:14)
[2018-02-26] MEDS: 0.9 % Sodium Chloride 1,000 ML IVC SCH (13:50)
[2018-02-26] MEDS: *HR* Metformin 500 MG TABLET PO SCH (17:36)
[2018-02-27 04:36] LABS: Basophils % 0.6 %; Eosinophils # 0.2 K/mcL (0.0-0.6); Eosinophils % 3.1 %; Hematocrit 39.5 % (35.3-44.9); Hemoglobin 12.7 g/dL (11.5-15.4); Immature Granulocytes % 0.3 % (0-4); Lymphocytes % 30.2 %; Mean Corpuscular HGB Conc 32.2 g/dL (31.6-35.5); Mean Corpuscular Hemoglobin 26.8 pg (28.0-33.3); Mean Corpuscular Volume 83.5 fL (83.0-100.0); Mean Platelet Volume 9.7 fL (9.4-12.4); Monocytes # 0.6 K/mcL (0.0-1.3); Monocytes % 9.6 %; Neutrophils # 3.8 K/mcL (1.6-8.9); Platelet Count 175 K/mcL (140-400); Red Blood Count 4.73 M/mcL (3.82-4.97); Red Cell Distribution Width 15.8 % (11.5-14.5); Segmented Neutrophils % 56.2 %
[2018-02-27 04:59] LABS: Alanine Aminotransferase 8 Units/L (7-52); Albumin 3.6 g/dL (3.5-5.7); Albumin/Globulin Ratio 1.2 (1.1-2.2); Alkaline Phosphatase 112 Units/L (34-104); Aspartate Amino Transferase 11 Units/L (13-39); BUN/Creatinine Ratio 35 (6-26); Bilirubin,Total 0.8 mg/dL (0.3-1.0); Blood Urea Nitrogen 25 mg/dL (8-23); Carbon Dioxide 28 mEq/L (23-29); Chloride 105 mEq/L (98-107); Globulin 2.9 g/dL (2.4-3.5); Glucose 108 mg/dL (70-105); Osmolality,Calculated 293 (280-300); Potassium 3.5 mEq/L (3.5-5.1); Sodium 139 mEq/L (136-145); Total Protein 6.5 g/dL (6.4-8.9); eGFR For Non-African Americans > 60 (> 60)
[2018-02-27] MEDS: 0.9 % Sodium Chloride 1,000 ML IVC SCH (05:26)
[2018-02-27] MEDS: *HR* OxyCODONE/APAP 5/325 TABLET PO PRN ×2 (08:46→17:30)
[2018-02-27] MEDS: hydroCHLOROthiazide 25 MG TABLET PO SCH (11:05)
[2018-02-27] MEDS: Aspirin Enteric Coated 81 MG Tablet PO SCH (11:05)
[2018-02-27] MEDS: *HR* Metformin 500 MG TABLET PO SCH ×2 (11:06→17:30)
--- NOTE | 2018-02-27 14:49 | Internal Med Progress Note ---
Hospitalist Progress Note - Encounter Date of Encounter: 02/27/18 Time of Encounter: 11:46 - Subjective Interval History: Patient continues to complain of R knee pain and inability to flex. Unsteady on her feet. - Exam Vitals: Temp Pulse Resp BP Pulse Ox 98.1 F 73 19 109/61 96 02/27/18 11:49 02/27/18 11:49 02/27/18 11:49 02/27/18 11:49 02/27/18 11:49 Exam: Gen: AAOx3, NAD CVS: RRR Lungs: CTAB Abd: NT/ND Ext: decreased ROM in right knee especially on flexion, suprapatellar effusion noted, joint underliner to palpation. Mild warmth but no erythema, no warmth. - Assessment and Plan (1) Knee effusion, right Current Visit: Yes Status: Acute Assessment and Plan: Right knee pain with effusion after sustaining a mechanical fall pending ortho eval, PT/OT after pain mx (2) Unable to walk Current Visit: Yes Status: Acute Assessment and Plan: Remain non-weight bearing until orthopedic consult has been completed PT/OT after once cleared by ortho (3) Type 2 diabetes mellitus Current Visit: No Status: Chronic Assessment and Plan: resume diet continue metformin as I anticipate that the patient will be discharged very soon and her glucose was well controlled at home (4) Hypertension Current Visit: No Status: Chronic Assessment and Plan: resume home meds (5) DVT prophylaxis Current Visit: No Status: Acute Assessment and Plan: SQ heparin - Time Spent with Patient Total time spent is greater than 50% in coordination of care (as documented) at patient's floor/unit and/or counseling patient: Plan of Care Discussed with: nurse (also discussed with orthopedics over phone) Internal Medicine: Result - Labs CBC & Chem 7: 02/27/18 04:09 02/27/18 04:09 Labs: Short CBC 02/27/18 Range/Units 04:09 WBC 6.7 (4.3-11.1) K/mcL Hgb 12.7 (11.5-15.4) g/dL Hct 39.5 (35.3-44.9) % Plt Count 175 (140-400) K/mcL Neutrophils # 3.8 (1.6-8.9) K/mcL BMP 02/27/18 04:09 Sodium 139 Potassium 3.5 Chloride 105 Carbon Dioxide 28 BUN 25 H Creatinine 0.71 Glucose 108 H Calcium 9.0 Liver Function 02/27/18 Range/Units 04:09 Total Bilirubin 0.8 (0.3-1.0) mg/dL AST 11 L (13-39) Units/L ALT 8 (7-52) Units/L Alkaline Phosphatase 112 H (34-104) Units/L Albumin 3.6 (3.5-5.7) g/dL Consult Discharge Plan - Plan Referrals: Nikunj Ash Jr, MD [Primary Care Provider] - (3) Type 2 diabetes mellitus Qualifiers: Diabetes mellitus nursing home insulin use: without pump oiler use Diabetes mellitus complication status: without complication Qualified Code(s): E11.9 - Type 2 diabetes mellitus without complications (4) Hypertension Qualifiers: Hypertension type: essential hypertension Qualified Code(s): I10 - Essential (primary) hypertension
[2018-02-27] MEDS: *HR* Heparin 5,000 UNIT/ML VIAL SQ SCH (17:32)
--- NOTE | 2018-02-27 17:57 | Orthopedic Consult Note ---
Date of Encounter: 02/27/18 Time of Encounter: 17:55 Assessment and Plan (1) Knee effusion, right Current Visit: Yes Status: Acute The diagnosis and treatment options were discussed with Mariel. Does not appear that she has any acute fracture on her imaging. She does have significant OA and there was likely a flare due to her fall. Recommend continuing nonoperative management for the knee. Aspiration injection of the knee was performed today. The knee was sterilely prepped after verbal consent was obtained. From a superolateral portal about 5 mL of blood tinged synovial fluid was aspirated from the knee. A cocktail of 2 mL of Sensorcaine, 2 cc lidocaine, and 80 mg Depo-Medrol was then injected. Dressing was placed. Recommend ice and elevation. She may be weightbearing as tolerated on a walker. Follow-up as scheduled. History of Present Illness HPI: Ms. Keyes is a 78 year old female who fell yesterday onto her right side. She had a mechanical fall after tripping over exercise equipment and fell onto her right knee. No prodromal symptoms following or prior to the fall. She has had pain and swelling in the knee since that time. She has had difficulty bearing weight on the knee since her fall. X-rays in the emergency department showed no acute fracture but there was significant degenerative changes. She was admitted due to her inability to ambulate. Orthopedics was consulted for evaluation for the pain and swelling. Past Med Surg Social Fam HX - Past Medical History Medical history: arthritis, asthma, diabetes, other Additional medical history: IBS Psychiatric history: no psych history - Past Surgical History Surgical History: appendectomy, cholecystectomy, knee replacement Additional surgical history: Left knee replacement. - Social History Smoking Status: Former smoker Smokeless Tobacco Status: No Alcohol use: none Drug use: none - Family History Paternal Grandfather Hx Family Cardiac Disorders: Yes Hx Family Cancer: Yes Medications and Allergies Cetirizine HCl [Zyrtec] 10 mg PO DAILY PRN 09/18/16 [History] Tramadol HCl [Ultram] 50 mg PO Q6H PRN 09/18/16 [History] metFORMIN [Glucophage] 500 mg PO BIDWM 09/18/16 [History] Albuterol Sulfate [Albuterol Inhaler] 2 puff IH Q4HR PRN 11/20/16 [History] Aspirin Enteric Coated [Aspirin EC] 81 mg PO DAILY 11/20/16 [History] hydroCHLOROthiazide [Hydrochlorothiazide] 12.5 mg PO DAILY #30 tablet 11/22/16 [ Rx] Losartan Potassium [Cozaar] 50 mg PO DAILY 09/12/17 [History] Meloxicam [Mobic] 15 mg PO DAILY 09/12/17 [History] 3 Allergy/AdvReac Type Severity Reaction Status Date / Time azithromycin Allergy Swelling Verified 09/18/16 18:51 [From Zithromax Z-Silvano] of Lip/Tongue/Throat cephalexin [From Keflex] Allergy Rash Verified 09/18/16 18:51 All Systems Reviewed: The remainder of the systems were reviewed and are negative except as noted in the history of present illness Physical Exam - Constitutional Vitals: Temp Pulse Resp BP Pulse Ox 99.4 F 77 19 163/99 93 02/27/18 16:54 02/27/18 16:54 02/27/18 16:54 02/27/18 16:54 02/27/18 16:54 Exam: Consult Exam: Constitutional -Vitals reviewed -The patient is well developed and well nourished. -Mood is pleasant. -The patient is well groomed. Psychiatric -The patient is fully alert and oriented x 3. Respiratory: -Respiratory effort normal Abdomen: -Soft abdomen -Non tender -Non distended: Left upper extremity: -No deformities. The overlying skin is intact. No obvious signs of acute trauma. -No tenderness to palpation throughout. -No significant pain with passive motion of the shoulder, elbow, wrist, and fingers within the limits of the bed. -Able to make an "OK" sign, cross the index and long fingers, and extend the thumb. -Sensation grossly intact to light touch throughout the median, radial, and ulnar distributions. -Radial pulse is present; Fingers have good capillary refill. Right upper extremity: -No deformities. The overlying skin is intact. No obvious signs of acute trauma. -No tenderness to palpation throughout. -No significant pain with passive motion of the shoulder, elbow, wrist, and fingers within the limits of the bed. -Able to make an "OK" sign, cross the index and long fingers, and extend the thumb. -Sensation grossly intact to light touch throughout the median, radial, and ulnar distributions. -Radial pulse is present; Fingers have good capillary refill. Left lower extremity: -No deformities. The overlying skin is intact. No obvious signs of acute trauma. -No tenderness to palpation throughout. -No pain with passive motion of the hip, knee, ankle, and toes within the limits of the bed. -No pain with axial loading of the thigh. -Able to dorsiflex and plantarflex the ankle and toes. -Sensation is grossly intact to light touch throughout the sural, saphenous, superficial peroneal, and deep peroneal distributions. -Toes have good capillary refill. Right lower extremity: -No deformities. The overlying skin is intact. No obvious signs of acute trauma. -Diffuse tenderness palpation over the knee. -No pain with passive motion of the hip, ankle, and toes within the limits of the bed. Pain with deep flexion of the knee. Small effusion. -No pain with axial loading of the thigh. -Able to dorsiflex and plantarflex the ankle and toes. -Sensation is grossly intact to light touch throughout the sural, saphenous, superficial peroneal, and deep peroneal distributions. -Toes have good capillary refill. Results - Labs Result Diagrams: 02/27/18 04:09 02/27/18 04:09 Labs: Abnormal lab results MCH 26.8 pg (28.0-33.3) L 02/27/18 04:09 RDW 15.8 % (11.5-14.5) H 02/27/18 04:09 BUN 25 mg/dL (8-23) H 02/27/18 04:09 BUN/Creatinine Ratio 35 (6-26) H 02/27/18 04:09 Glucose 108 mg/dL (70-105) H 02/27/18 04:09 POC Glucose 104 mg/dL (70-99) H 02/27/18 06:12 AST 11 Units/L (13-39) L 02/27/18 04:09 Alkaline Phosphatase 112 Units/L (34-104) H 02/27/18 04:09 H & H 02/27/18 Range/Units 04:09 Hgb 12.7 (11.5-15.4) g/dL Hct 39.5 (35.3-44.9) % All other labs normal. - Diagnostic results Knee x-ray: report reviewed, image reviewed (No acute fracture dislocation of the right knee. Significant degenerative changes tricompartmental.) Consult Discharge Plan - Plan Referrals: Nikunj Ash Jr, MD [Primary Care Provider] -
--- NOTE | 2018-02-28 01:52 | Event Note ---
Date of Encounter: 02/28/18 Time of Encounter: 01:49 I was paged to the bed by RN as the patient was complaining of shortness of breath on hour after albuterol treat. Per patient she has asthma nd allergies - she feels like her chest is tight but denies chest pain. She says her heart feels funny but not palpations and she doesn't feel anxious. When this happens at home she takes benadryl. Lungs : CTAB no wheeze or rale, Heart: tachycardia but regular, mild pedal edame +1. Patient appears calm and can rest comfortably in bed. EKG : Sinus Tachycardia unchanged from previous. I gave her the request benadryl and put on continuous o2 monitor 0400 Patient resting comfortably in bed - states tightness is better
[2018-02-28] MEDS: *HR* Heparin 5,000 UNIT/ML VIAL SQ SCH (05:45)
[2018-02-28] MEDS ORDERED: Aspirin 325 MG TABLET PO ONE (06:20)
--- NOTE | 2018-02-28 06:41 | Event Note ---
Date of Encounter: 02/28/18 Time of Encounter: 06:36 I was alerted to critical lab of elevated troponin draw about an hour after patient complained of chest tightness. She was sleeping deeply - when I woke her she denies any pain or difficult breathing. She was drowsy from sleep. Cardiac : mildly tachycardic but regular rhythm Lungs: CTAB EKG completed on previous page. She has risk factors of HTN and DM - restart tele - trend troponin - once ASA 325, continue SQ heparin - echo ordered for this morning - start NPO diet - hold metformin for now - consider cardiology consult based on results
[2018-02-28] MEDS: Aspirin Enteric Coated 81 MG Tablet PO SCH (09:00)
[2018-02-28] MEDS: hydroCHLOROthiazide 25 MG TABLET PO SCH (09:02)
--- NOTE | 2018-02-28 10:39 | Internal Med Progress Note ---
Hospitalist Progress Note - Encounter Date of Encounter: 02/28/18 Time of Encounter: 10:34 - Exam Vitals: Temp Pulse Resp BP Pulse Ox 97.6 F 102 17 134/84 92 02/28/18 06:51 02/28/18 06:51 02/28/18 06:51 02/28/18 06:51 02/28/18 09:15 Exam: CONSTITUTIONAL: patient appears as an age appropriate female in no acute distress. EYES Clear sclerae, bilateral pupils are equal, reactive to light. EMOI. RESPIRATORY: No accessory muscle use, bilateral clear to auscultation, no wheezing, no crackles/rales. CARDIOVASCULAR: Regular heart rate, normal S1 and S2, no murmurs GASTROINTESTINAL: bowel sounds present, soft, no tenderness. MUSCULOSKELETAL: Joints in normal range of motion, no clubbing, no edema, no cyanosis. Bilateral peripheral pulses 2+. NEUROLOGIC: CN II to XII are grossly intact, no focal neurological deficit. - Assessment and Plan (1) Knee effusion, right Current Visit: Yes Status: Acute Assessment and Plan: appreciate orthpediac consult s/p joint aspiration and steroids injection consult pT and OT SNF placemnt (2) Chest pain Current Visit: No Status: Acute Assessment and Plan: patient has one episodes of chest tightness, lasted for 10-20 min, denies radaition, associated with SOB, she thought CP was from asthma, requested Inhaler, did not help, she said she has on and off chest tightness from asthma attack, EKG has no changes, but trop was elevated, await for 2nd trop. I called Dr Serrano, Cardiology ocnsult placed. current she is chest pain free (3) Type 2 diabetes mellitus Current Visit: Yes Status: Chronic Assessment and Plan: BG is well controlled (4) Hypertension Current Visit: Yes Status: Chronic Assessment and Plan: conitneu home meds (5) DVT prophylaxis Current Visit: Yes Status: Acute Assessment and Plan: heparin SC (6) Asthma Current Visit: Yes Status: Acute Assessment and Plan: albuterol prn - Time Spent with Patient Total time spent is greater than 50% in coordination of care (as documented) at patient's floor/unit and/or counseling patient: 25 - 35 minutes Internal Medicine: Result - Labs CBC & Chem 7: 02/27/18 04:02/27/18 04:09 Labs: Cardiac Enzymes 02/28/18 Range/Units 05:09 Troponin I 0.27 H* (< 0.04) ng/mL Consult Discharge Plan - Plan Referrals: Nikunj Ash Jr, MD [Primary Care Provider] - (2) Chest pain Qualifiers: Chest pain type: unspecified Qualified Code(s): R07.9 - Chest pain, unspecified (3) Type 2 diabetes mellitus Qualifiers: Diabetes mellitus half-way insulin use: without half-way use Diabetes mellitus complication status: without complication Qualified Code(s): E11.9 - Type 2 diabetes mellitus without complications (4) Hypertension Qualifiers: Hypertension type: essential hypertension Qualified Code(s): I10 - Essential (primary) hypertension (6) Asthma Qualifiers: Asthma severity: mild
[2018-02-28] MEDS ORDERED: *HR* Heparin 5,000 UNIT/ML VIAL IVP PRN ×2 (13:12)
[2018-02-28] MEDS ORDERED: *HR* Heparin 5,000 UNIT/ML VIAL IVP ONE (13:12)
[2018-02-28] MEDS: Heparin 25,000 UNIT/500 ML D5W 25,000 UNIT/500 ML BAG IVC SCH (13:53)
[2018-02-28 13:56] LABS: Hematocrit 42.4 % (35.3-44.9); Hemoglobin 13.8 g/dL (11.5-15.4); Mean Corpuscular HGB Conc 32.5 g/dL (31.6-35.5); Mean Corpuscular Hemoglobin 26.6 pg (28.0-33.3); Mean Corpuscular Volume 81.7 fL (83.0-100.0); Mean Platelet Volume 9.9 fL (9.4-12.4); Platelet Count 177 K/mcL (140-400); Red Blood Count 5.19 M/mcL (3.82-4.97); Red Cell Distribution Width 15.7 % (11.5-14.5)
[2018-02-28 14:04] LABS: Heparin anti-factor XA UFH 0.02 IU/mL (0.30-0.70)
[2018-02-28 14:05] LABS: INR 1.1; Prothrombin Time 12.3 Seconds (9.4-12.1)
--- NOTE | 2018-02-28 17:04 | Cardiology Consult Note ---
Date of Encounter: 02/28/18 Time of Encounter: 17:01 Assessment and Plan (1) Elevated troponin Current Visit: Yes Status: Acute 78-year-old female who was admitted regarding a fall and knee pain. She developed acute onset of shortness of breath last evening, which resolved after treatment for asthma. Subsequent troponin measurements have been elevated, 0.2, now 0.6. She currently denies chest pain or discomfort. Stress test performed last year was negative for ischemia. She does have a few risk factors for CAD including age as well as diabetes. We discussed options, including observation as this could represent a mild troponin leak related to asthma/respiratory insufficiency last evening. I also explained to her that her symptoms last evening could represent angina. Since she is currently comfortable, we have decided to continue medical therapy for now and await TTE. We will also check at least one more troponin. If her symptoms return, TTE is significantly abnormal, or if troponin continues to elevate, we will consider a cardiac catheterization. Continue aspirin, heparin for now. We will avoid beta blockers given recent possible exacerbation of asthma. Further recommendations to follow. Discussion w patient/family: The assessment and plan as outlined above was discussed with the patient and/or family members who expressed understanding and agreement. All questions were answered. Thank you for involving us in the care of your patient. Please call with any questions. History of Present Illness Consult date: 02/28/18 Requesting physician: Antonio Lo Consult reason: Troponin elevation Chief complaint: Fall, knee pain History of present illness: Ms. Keyes is a 78 year old female with no known prior cardiac issues. She was admitted after sustaining a fall. She has undergone drainage of effusion of her left knee. States she underwent a stress test within the past year or so, which she describes is negative. She has never required a cardiac catheterization in the past. Last evening, she developed shortness of breath. She states she has a significant history of asthma and knows that she had an asthma attack. The symptoms lasted from 12 AM to 3 AM. After she received her inhalers and supportive therapy, her symptoms slowly resolved. Her current rest for status is at baseline. She denies any associated chest discomfort to me. Currently, she is very comfortable. Troponin measurements 0.27, 0.64. Lexiscan nuclear stress test 11/21/2016: Negative for ischemia or prior infarct. Gated EF 71%. Past Med Surg Social Fam HX - Past Medical History Medical history: arthritis, asthma, diabetes, other Additional medical history: IBS Psychiatric history: no psych history - Past Surgical History Surgical History: appendectomy, cholecystectomy, knee replacement Additional surgical history: Left knee replacement. - Social History Smoking Status: Former smoker Smokeless Tobacco Status: No Alcohol use: none Drug use: none - Family History Paternal Grandfather Hx Family Cardiac Disorders: Yes Hx Family Cancer: Yes Medications and Allergies Cetirizine HCl [Zyrtec] 10 mg PO DAILY PRN 09/18/16 [History] Tramadol HCl [Ultram] 50 mg PO Q6H PRN 09/18/16 [History] metFORMIN [Glucophage] 500 mg PO BIDWM 09/18/16 [History] Albuterol Sulfate [Albuterol Inhaler] 2 puff IH Q4HR PRN 11/20/16 [History] Aspirin Enteric Coated [Aspirin EC] 81 mg PO DAILY 11/20/16 [History] hydroCHLOROthiazide [Hydrochlorothiazide] 12.5 mg PO DAILY #30 tablet 11/22/16 [ Rx] Losartan Potassium [Cozaar] 50 mg PO DAILY 09/12/17 [History] Meloxicam [Mobic] 15 mg PO DAILY 09/12/17 [History] 3 Allergy/AdvReac Type Severity Reaction Status Date / Time azithromycin Allergy Swelling Verified 09/18/16 18:51 [From Zithromax Z-Silvano] of Lip/Tongue/Throat cephalexin [From Keflex] Allergy Rash Verified 09/18/16 18:51 All Systems Review: The remainder of the systems were reviewed and are negative - Cardiovascular Cardiovascular: as per HPI, dyspnea at rest - Respiratory Respiratory: wheezing Physical Examination Vital Signs, Last 4 Hours Temp Pulse Resp BP Pulse Ox 02/28/18 16:32 98.1 F 83 17 155/90 93 General: Conversant, No Apparent Distress HEENT: Atraumatic, Normocephaly, Mucus Membranes Moist Neck: No JVD, Normal carotid pulses Cardiac: Reg Rate and Rhythm, Normal S1 and S2, No Murmur Lungs: Normal Breath Sounds, No Wheeze, Rales, Rhonchi Neuro: Alert and responsive, No focal deficits noted Abdomen: Soft, Non-Tender Skin: No rashes noted on visualized skin Musculoskeletal: No Chest Wall Tenderness Extremities: No Clubbing, No Cyanosis, No Edema Results 02/28/18 13:40 02/27/18 04:09 Lab Results 02/28/18 02/28/18 02/28/18 05:09 11:06 13:40 WBC 9.7 Hgb 13.8 Hct 42.4 Plt Count 177 INR Troponin I 0.27 H* 0.64 H* 02/28/18 13:40 WBC Hgb Hct Plt Count INR 1.1 Troponin I - Imaging and Cardiology Stress Test: report reviewed - EKG Interpretation EKG results cardiology: other (ECG is currently unavailable on the floor. I looked in the typical locations without success.) Consult Discharge Plan - Plan Referrals: Nikunj Ash Jr, MD [Primary Care Provider] -
[2018-02-28] MEDS: *HR* OxyCODONE/APAP 5/325 TABLET PO PRN (21:13)
[2018-02-28] MEDS: 0.9 % Sodium Chloride 1,000 ML IVC SCH (23:29)
[2018-03-01 02:03] LABS: Basophils % 0.3 %; Eosinophils # 0.2 K/mcL (0.0-0.6); Eosinophils % 1.6 %; Hematocrit 38.2 % (35.3-44.9); Immature Granulocytes % 0.3 % (0-4); Lymphocytes # 2.4 K/mcL (0.6-4.6); Lymphocytes % 23.9 %; Mean Corpuscular HGB Conc 31.7 g/dL (31.6-35.5); Mean Corpuscular Volume 82.2 fL (83.0-100.0); Mean Platelet Volume 9.6 fL (9.4-12.4); Monocytes # 0.8 K/mcL (0.0-1.3); Monocytes % 7.7 %; Neutrophils # 6.7 K/mcL (1.6-8.9); Platelet Count 149 K/mcL (140-400); Red Blood Count 4.65 M/mcL (3.82-4.97); Red Cell Distribution Width 15.9 % (11.5-14.5); Segmented Neutrophils % 66.2 %
[2018-03-01 02:06] LABS: Hemoglobin 12.1 g/dL (11.5-15.4)
[2018-03-01 02:22] LABS: BUN/Creatinine Ratio 43 (6-26); Blood Urea Nitrogen 34 mg/dL (8-23); Calcium 9.1 mg/dL (8.6-10.3); Carbon Dioxide 29 mEq/L (23-29); Chloride 103 mEq/L (98-107); Glucose 198 mg/dL (70-105); Magnesium 2.1 mg/dL (1.6-2.6); Osmolality,Calculated 299 (280-300); Potassium 3.6 mEq/L (3.5-5.1); Sodium 138 mEq/L (136-145); eGFR For Non-African Americans > 60 (> 60)
[2018-03-01] MEDS: hydroCHLOROthiazide 25 MG TABLET PO SCH (09:23)
[2018-03-01] MEDS: Aspirin Enteric Coated 81 MG Tablet PO SCH (09:23)
--- NOTE | 2018-03-01 10:07 | Internal Med Progress Note ---
Hospitalist Progress Note - Encounter Date of Encounter: 03/01/18 Time of Encounter: 10:01 - Subjective Interval History: 78 yo female whom entered the emergency department per EMS yesterday, after sustaining a fall at her home, with right knee pain, inability to bear weight d/ t severe pain . Reports that she was in her kitchen and fell over a "piece of equipment " Going from a standing position, landing on the right knee. States that most of the pain is located in the right posterior knee. Patient was admitted on February 26, for right knee effusion. Orthopedic surgery was consult. She had a knee aspiration and the steroids injection to the right Knee on 02/27, knee swelling improved, pain controlled. She has been able to tolerate weightbearing and physical therapy. patient has one episodes of chest tightness at night on 02/28, lasted for 10-20 min, denies radaition, associated with SOB, she thought CP was from asthma, requested Inhaler, did not help, she said she has on and off chest tightness from asthma attack, EKG has no changes, but trop was elevated ( 0.27-0.6-0.57), await for 2nd trop. She had another episode on 03/01 current she is chest pain free appreciate cardiology consult, patient is going to have [facility] today - Exam Vitals: Temp Pulse Resp BP Pulse Ox 98.0 F 80 17 118/76 91 03/01/18 07:25 03/01/18 07:25 03/01/18 07:25 03/01/18 07:25 03/01/18 07:25 Exam: CONSTITUTIONAL: patient appears as an age appropriate female in no acute distress. EYES Clear sclerae, bilateral pupils are equal, reactive to light. EMOI. RESPIRATORY: No accessory muscle use, bilateral clear to auscultation, no wheezing, no crackles/rales. CARDIOVASCULAR: Regular heart rate, normal S1 and S2, no murmurs GASTROINTESTINAL: bowel sounds present, soft, no tenderness. MUSCULOSKELETAL: Joints in normal range of motion, no clubbing, no edema, no cyanosis. Bilateral peripheral pulses 2+. NEUROLOGIC: CN II to XII are grossly intact, no focal neurological deficit. - Assessment and Plan (1) Knee effusion, right Current Visit: Yes Status: Acute Assessment and Plan: appreciate orthpediac consult s/p joint aspiration and steroids injection on consult pT and OT SNF placemnt (2) Chest pain Current Visit: Yes Status: Acute Assessment and Plan: patient has one episodes of chest tightness on 02/28, lasted for 10-20 min, denies radaition, associated with SOB, she thought CP was from asthma, requested Inhaler, did not help, she said she has on and off chest tightness from asthma attack, EKG has no changes, but trop was elevated, trop 0.27-0.6 she had another episode on 03/01 current she is chest pain free paitentis going to have [facility] appreciate cardiology consult (3) Type 2 diabetes mellitus Current Visit: Yes Status: Chronic Assessment and Plan: well controlled (4) Hypertension Current Visit: Yes Status: Chronic (5) DVT prophylaxis Current Visit: Yes Status: Acute Assessment and Plan: heparin drip (6) Asthma Current Visit: Yes Status: Acute - Time Spent with Patient Total time spent is greater than 50% in coordination of care (as documented) at patient's floor/unit and/or counseling patient: Internal Medicine: Result - Labs CBC & Chem 7: 03/01/18 01:47 03/01/18 01:47 Labs: Short CBC 02/28/18 03/01/18 Range/Units 13:40 01:47 WBC 9.7 10.1 (4.3-11.1) K/mcL Hgb 13.8 12.1 D (11.5-15.4) g/dL Hct 42.4 38.2 (35.3-44.9) % Plt Count 177 149 (140-400) K/mcL Neutrophils # 6.7 (1.6-8.9) K/mcL BMP 03/01/18 01:47 Sodium 138 Potassium 3.6 Chloride 103 Carbon Dioxide 29 BUN 34 H Creatinine 0.80 Glucose 198 H Calcium 9.1 Cardiac Enzymes 02/28/18 02/28/18 Range/Units 11:06 17:21 Troponin I 0.64 H* 0.56 H* (< 0.04) ng/mL - ABG Interpretation ABG results: PT/INR, D-dimer PT 12.3 Seconds (9.4-12.1) H 02/28/18 13:40 Consult Discharge Plan - Plan Referrals: Nikunj Ash Jr, MD [Primary Care Provider] - (2) Chest pain Qualifiers: Chest pain type: unspecified Qualified Code(s): R07.9 - Chest pain, unspecified (3) Type 2 diabetes mellitus Qualifiers: 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
--- NOTE | 2018-03-01 10:31 | Cardiology Progress Note ---
Date of Encounter: 03/01/18 Time of Encounter: 10:26 Assessment and Plan (1) Elevated troponin Current Visit: Yes Status: Acute Patient now reports intermittent chest discomfort over the years. Two night ago, 3 hour episode of unexplained dyspnea, now states mild chest discomfort. Reports addition chest pain last evening for a few minutes. Mild troponin elevation noted. Discussed options, including medical therapy +/- LHC. Discussed the R/B/A to the procedure. She is agreeable and wishes to proceed after giving it some consideration. Discussion w patient/family: The assessment and plan as outlined above was discussed with the patient and/or family members who expressed understanding and agreement. All questions were answered. Thank you for involving us in the care of your patient. Please call with any questions. Subjective Principal diagnosis: Elevated troponin Interval history: Troponin 0.2, 0.6, 0.5. Reports a brief episode of chest discomfort last night - lasted a few minutes. Discussed findings - 3 hours of dyspnea/slight chest discomfort 2 nights ago, mild chest discomfort last night. Stress test over the years have been negative. Patient concerned about possiblity of heart disease. No active symptoms. Objective Vital Signs, Last 4 Hours Temp Pulse Resp BP Pulse Ox 03/01/18 07:25 98.0 F 80 17 118/76 91 General: Conversant, No Apparent Distress HEENT: Atraumatic, Normocephaly, Mucus Membranes Moist Neck: No JVD, Normal carotid pulses Cardiac: Reg Rate and Rhythm, Normal S1 and S2, No Murmur Lungs: Normal Breath Sounds, No Wheeze, Rales, Rhonchi Neuro: Alert and responsive, No focal deficits noted Abdomen: Soft, Non-Tender Skin: No rashes noted on visualized skin Musculoskeletal: No Chest Wall Tenderness Extremities: No Clubbing, No Cyanosis, No Edema Results 03/01/18 01:47 03/01/18 01:47 Lab Results 02/28/18 02/28/18 02/28/18 11:06 13:40 13:40 WBC 9.7 Hgb 13.8 Hct 42.4 Plt Count 177 INR 1.1 Sodium Potassium Chloride Carbon Dioxide BUN Creatinine Glucose Calcium Magnesium Troponin I 0.64 H* 02/28/18 03/01/18 03/01/18 17:21 01:47 01:47 WBC 10.1 Hgb 12.1 D Hct 38.2 Plt Count 149 INR Sodium 138 Potassium 3.6 Chloride 103 Carbon Dioxide 29 BUN 34 H Creatinine 0.80 Glucose 198 H Calcium 9.1 Magnesium 2.1 Troponin I 0.56 H* - Imaging and Cardiology Echo: image reviewed - EKG Interpretation EKG results cardiology: personally reviewed Consult Discharge Plan - Plan Referrals: Nikunj Ash Jr, MD [Primary Care Provider] -
[2018-03-01] MEDS: Heparin 25,000 UNIT/500 ML D5W 25,000 UNIT/500 ML BAG IVC SCH (13:09)
[2018-03-01] MEDS ORDERED: 0.9 % Sodium Chloride 1,000 ML ONE ×2 (14:42→14:54)
[2018-03-01] MEDS ORDERED: Nitroglycerin 1,000 MCG/10 ML VIAL IV ONE (14:43)
[2018-03-01] MEDS ORDERED: *HR* Heparin 10,000 UNIT/10 ML VIAL ONE (14:43)
[2018-03-01] MEDS ORDERED: ISOVUE-370 200 ML INFUS..BTL IV ONE (14:43)
[2018-03-01] MEDS ORDERED: Heparin 1,000 UNITS/500 mL 500 ML ONE (14:43)
--- NOTE | 2018-03-01 15:00 | Pre-Sedation Evaluation ---
Pre-sedation evaluation - Pre-sedation checklist Date of procedure: 03/01/18 Procedure: left heart cath Recent Vitals: Last Vital Signs Temp 98.0 F 03/01/18 11:28 Pulse 88 03/01/18 11:28 Resp 16 03/01/18 11:28 BP 130/85 03/01/18 11:28 Pulse Ox 92 03/01/18 11:28 H&P (including ROS) documented in medical record: Yes Previous reaction to sedatives/anesthetics: No Dietary Status: NPO after Midnight Airway Assessment: Patient can open mouth completely, TMJ function normal Dentition: No loose teeth or bridges Possible difficult airway: No ASA Classification *see protocol: CLASS III-Severe systemic disease Plan of Care: Pt appropriate candidate for procedure/moderate/conscious sedation , Risks/benefits of procedure/sedation discussed w/ patient/family, If not NPO; Risk of intake outweiged by necessity to perform procedure Cardiac Registry (Cardio Only) - Functional Capacity Functional Capacity: >=4 METS with symptoms - Clincal Frailty Scale Clinical Frailty Scale: Managing Well
[2018-03-01] MEDS ORDERED: *HR* Midazolam HCl 2 MG/2 ML VIAL ONE (15:01)
--- NOTE | 2018-03-01 15:34 | Event Note ---
Date of Encounter: 03/01/18 Time of Encounter: 15:31 [facility] completed. 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 Normal LVEF. Troponin elevation appears noncardiac. Given fall/leg trauma, acute onset of symptoms the other night - consider CT to r/o PE. Stop heparin drip if negative. No further cardiac recommendations at this time. Cardiology will sign off. Thanks, Anish Donis DO, FACC
--- NOTE | 2018-03-01 15:42 | Invasive Diagnostic Lab Proc ---
Name: Mariel Keyes Date of Study: 03/01/2018 Date: 1940 Ht: 67.0in Medical Record#: [id number] Age: 78 Wt: 249.56lb Gender: Female BSA: 2.22 Order #: [id number] BMI: 39.08 Physicians Procedure Physician: Al Pollack DO Referring MD: Referring MD: Staff Name Position Time In Tita Mcrae RT Scrub 03:00 PM Katie Yeung RT (R) Monitor 03:00 PM Emil Perez RN Plant Associate 03:00 PM Nuvia Wilkins STORE CLERK CASHIER STORE CLERK CASHIER 03:05 PM Indications Indication Non-Stemi Procedures Performed Procedure L HRT ARTERY/VENTRICLE ANGIO Pre-Procedure Checklist Pt not NPO for procedure and MD aware. Blood Pressure: 166/119 Rhythm: NSR Plan of Care Patient will tolerate the procedure without complications. Adequate level of comfort will be maintained. Hemodynamics will remain stable Patient will recover from procedure without complications. Respiratory function will be maintained. Cardiac rhythm will remain stable. Patient temperature will be maintained. Patient and/or family have verbalized understanding of the procedure. Patient Education Chief Complaint/Reason for Test: Cardiac Cath Developmental Category: Geriatric (65+ years) Developmentally Appropriate for Age: Yes Learning Barriers: None Education Needs: Procedure Education Method: Verbal Information Taught: Cardiac Cath Educational Evaluation: Able to repeat information Intravenous Access Time IV Size Location DC'd Fluid/Drip Rate Units RN 20g 1 1/4" Patent On Arrival Rt Arm 0.9NaCl 25 ml/hr Emil Perez RN Allergies Vitamin B Complex B 12 Cyanocobalamin cephalexin azithromycin Vital Signs Time BP (mmHg) HR (bpm) O2 Sat. RR (bpm) LOC 07:00 AM 118 / 76 80 91 % 17 5 = Fully awake and oriented or at pre-proc level 03:03 PM 166 / 119 94 100 % 19 03:06 PM 174 / 110 119 94 % 25 03:11 PM 176 / 107 87 100 % 31 03:16 PM 165 / 80 88 97 % 16 03:21 PM 163 / 106 83 95 % 18 03:26 PM 172 / 85 84 100 % 10 Procedural Medications Time Medication Dose Units Method Given By 03:04 PM Versed 2 mg Intravenous Emil Perez RN 03:06 PM Oxygen 2 L/min nasal cannula Perez, Emil RN 03:12 PM Lidocaine 2% 10 ml Subcutaneous Al Pollack DO ASA Classification: CLASS III- Severe systemic disease (i.e. prior AMI, diabetes with vascular complications, morbid obesity) Brooke Score Preprocedure Postprocedure Activity 2- Moves 4 extremities sustained head lift Activity Circulation 2- SBP +/= 20 points of pre-anesthetic level Circulation Consciousness 2- Awake and alert oriented x 3 Consciousness O2 Saturation 2- Able to maintain O2 satruation of 92% on room air O2 Saturation Respiratory 2- Able to deep breathe and cough well Respiratory Total Score 10 Total Score Contrast Agent: Isovue Diagnostic Contrast: 60 ml Total Contrast: 60 ml Fluoro Dose: 3413 mGy Procedure Log Time Note Enter By 03:00 PM Pt arrived to carpenter/labor 2 at 15:00 [facility]:00 PM Tita Mcrae RT Position: Scrub Time in: 15: 03:00 PM Katie Yeung RT (R) Position: Monitor Time in: :: PM Emil Perez RN Position: Plant Associate Time in: 15: 03:00 PM Patient charges- Angio tray pack, Navilyst 3mm J, Pulse Oximetry and ACIST tubing and transducer 03:00 PM IV Supplies used: J loop Angio Cath. 03:00 PM Case Delayed No 03:00 PM Physician arrived 15:00 03:00 PM Vitals capture started with the following parameters, Patient=Adult, Interval=5 min, Initial Aledpecy=918 mmHg, Deflation Rate=5 mmHg, Cuff placed on Right Arm 03:00 PM Nuvia Wilkins STORE CLERK CASHIER Position: STORE CLERK CASHIER Time in: 15:05 dspell 03:00 PM Case Start 03:01 PM CathStat 03:01 PM Meet and greet completed 03: PM Sign in performed according to hospital policy. 03: PM Procedure start 15: 03:03 PM HR=94 bpm, RLCH=466/119 mmhg, GtL8=471.0 %, Resp=19 B/min, Comment=NSR 03:03 PM Clinical Presentation: Non-STEMI 03:04 PM Time: 15:04 Versed 2 mg Intravenous Given by Emil Perez RN dspellman 03:04 PM ASA Class CLASS III- Severe systemic disease (i.e. prior AMI, diabetes with vascular complications, morbid obesity) dspell 03:05 PM Hair removed from procedure site in holding area using clippers. Bilateral groin prepped with Chloraprep by Nuvia Wilkins, then patient was draped. Skin intact. dspell 03:06 PM Time: 15:06 Oxygen on at 2 L/min per nasal cannula by Emil Perez RN dspell 03:06 PM FF=628 bpm, FGYL=493/110 mmhg, SpO2=94.0 %, Resp=25 B/min, Comment=NSR 03:09 PM [ Select Channel To Zero ] 03:09 PM Pressure channel 2 zeroed. 03:11 PM HR=87 bpm, GGXY=218/107 mmhg, WuE7=611.0 %, Resp=31 B/min, Comment=NSR 03:12 PM Time out performed according to hospital policy dsp 03:13 PM Time: 15:12 10 ml Lidocaine 2% to right groin Subcutaneous Given by Al Pollack DO dspell 03:13 PM Micro-Introducer Kit utilized for sheath placement dspell 03:14 PM Access obtained by percutaneous puncture. 6Fr 10cm Terumo [place] sheath placed in right Femoral artery. [id number] dspell 03:15 PM 5Fr FR 4 catheter inserted over the wire [facility] dsp 03:16 PM Catheter selectively placed in left ventricle dspell 03:16 PM Bolus angiogram of left Ventricle complete: 10 ml/sec for a total of 10 mls dspell 03:16 PM HR=88 bpm, MWHA=556/80 mmhg, SpO2=97 %, Resp=16 B/min, Comment=NSR 03:17 PM Recorded Pressure: LV, HR=86, Condition=Condition 1 (Left Ventricle) LV 132/-1/1 03:17 PM Recorded Pressure: LV, Ao, HR=87, Condition=Condition 1 (Left Ventricle) LV 138/-10/-5, (Aorta) Ao 121/48/82 03:18 PM RCA angiography performed in multiple views. dspell 03:18 PM Catheter removed dspell 03:18 PM 5Fr FL 4 catheter inserted over the wire [facility] 03:18 PM 0.035 145cm Navilyst 3mmJ wire [id number] dspell 03:18 PM LCA angiography performed in multiple views. dspell 03:19 PM Coronary Dominance: right dspell:20 PM Recorded Pressure: Ao, HR=85, Condition=Condition 1 (Aorta) Ao 143/63/99 03:20 PM Lesion found in Proximal RCA. Pre Stenosis: 30 Pre CARLOS Flow: 3: Complete and Brisk Flow/Perfusion dspell:21 PM Bolus angiogram of right Femoral complete: 5 ml/sec for a total of 5 mls dsp:21 PM Catheter removed dspell:21 PM Right Coronary, Right Posterior Descending Arteries with Right Posterolateral and Acute Marginal branches with 30 % stenosis. If graft is supplying this area, 0 % stenosis dspell:21 PM Procedure completed at 15:21 03/01/2018 dsp 03:21 PM Did you address CARLOS flow and Dominance? Yes :21 PM HR=83 bpm, YUJB=837/106 mmhg, SpO2=95 %, Resp=18 B/min, Comment=NSR 03:22 PM Sign out completed: Radiation Dose 329.10 mGy, 3413.45 cGy/cm2 Fluoro Time: 1.1 Isovue 370 - 200ml contrast 60 ml given by Al Pollack DO. Complications: NoneCardiac Rehab Consult needed: NoConfirmed administered medications: Yes 03:22 PM Isovue 370 - 200ml,1 Bottle(s) used. 03:22 PM Arterial sheath pulled using manual compression and V+ Pad for 15 minutes by Tita Mcrae RT :22 PM Estimated Blood Loss: less than 20cc dspell 03:22 PM Post ECG NSR dspell 03:23 PM Post Blood Pressure 163/106 dspell 03:23 PM 15:23 Post Pulses Bilateral DP & PT 2+ dspell 03:23 PM Information taught Cardiac Cath ell 03:23 PM Education needs Procedure, Plan of Care, and Responsibilities of Patient in Care dspell 03:23 PM Learning barriers :None dspell 03:23 PM Education Methods Verbal dspell 03:23 PM Education evaluation Able to repeat information ell 03:26 PM Report given to Laura RAPHAEL Pt taken to 2A Room #25. 15:26 dspellman 03:26 PM Family placed in consult room. dspellman 03:26 PM Complications: None dspellman 03:26 PM HR=84 bpm, MFDH=681/85 mmhg, ThJ6=687.0 %, Resp=10 B/min, Comment=NSR 03:33 PM Opsite applied dspell 03:33 PM Patient out of room: 15:33 dspellman Complications Complication None None Hemodynamics Pressures Site Systolic/A Wave Diastolic/V Wave Mean LV 132 -1 1 LV 138 -10 -5 AO 121 48 82 AO 143 63 99 Post Procedure Information Blood Pressure: 163/106 mmHg Rhythm: NSR Pulses Time Site Pre-Procedure Post-Procedure Note 3:23:00 PM Bilateral DP & PT 2+ Updated by Katie Yeung RT (R) on 03/01/2018 3:33:58 PM RT Tabatha electronically signed on 03/01/2018 3:34:40 PM with status of Final
[2018-03-01] MEDS ORDERED: Isovue-370 500 ML INFUS..BTL IV ONE (16:16)
[2018-03-01] MEDS: 0.9 % Sodium Chloride 1,000 ML IVC SCH (16:26)
[2018-03-02] MEDS: 0.9 % Sodium Chloride 1,000 ML IVC SCH ×2 (01:04→12:07)
[2018-03-02 02:02] LABS: Basophils # 0.1 K/mcL (0.0-0.2); Basophils % 0.7 %; Eosinophils # 0.3 K/mcL (0.0-0.6); Eosinophils % 3.7 %; Hematocrit 39.3 % (35.3-44.9); Hemoglobin 12.5 g/dL (11.5-15.4); Immature Granulocytes % 0.3 % (0-4); Lymphocytes # 2.7 K/mcL (0.6-4.6); Lymphocytes % 31.3 %; Mean Corpuscular HGB Conc 31.8 g/dL (31.6-35.5); Mean Corpuscular Hemoglobin 26.1 pg (28.0-33.3); Mean Platelet Volume 10.5 fL (9.4-12.4); Monocytes # 0.7 K/mcL (0.0-1.3); Monocytes % 8.4 %; Neutrophils # 4.9 K/mcL (1.6-8.9); Platelet Count 177 K/mcL (140-400); Red Blood Count 4.79 M/mcL (3.82-4.97); Red Cell Distribution Width 16.1 % (11.5-14.5); Segmented Neutrophils % 55.6 %
[2018-03-02 02:14] LABS: BUN/Creatinine Ratio 32 (6-26); Blood Urea Nitrogen 25 mg/dL (8-23); Carbon Dioxide 29 mEq/L (23-29); Chloride 105 mEq/L (98-107); Glucose 129 mg/dL (70-105); Potassium 3.6 mEq/L (3.5-5.1); Sodium 139 mEq/L (136-145); eGFR For Non-African Americans > 60 (> 60)
[2018-03-02 02:15] LABS: Calcium 9.1 mg/dL (8.6-10.3); Magnesium 2.2 mg/dL (1.6-2.6); Osmolality,Calculated 294 (280-300)
[2018-03-02] MEDS: Aspirin Enteric Coated 81 MG Tablet PO SCH (08:30)
[2018-03-02] MEDS: hydroCHLOROthiazide 25 MG TABLET PO SCH (08:33)
--- NOTE | 2018-03-02 09:31 | Internal Med Progress Note ---
Hospitalist Progress Note - Encounter Date of Encounter: 03/02/18 Time of Encounter: 09:25 - Subjective Interval History: 78 yo female whom entered the emergency department per EMS yesterday, after sustaining a fall at her home, with right knee pain, inability to bear weight d/ t severe pain . Reports that she was in her kitchen and fell over a "piece of equipment " Going from a standing position, landing on the right knee. States that most of the pain is located in the right posterior knee. Patient was admitted on February 26, for right knee effusion. Orthopedic surgery was consult. She had a knee aspiration and the steroids injection to the right Knee on 02/27, knee swelling improved, pain controlled. She has been able to tolerate weightbearing and physical therapy. patient has one episodes of chest tightness at night on 02/28, lasted for 10-20 min, denies radaition, associated with SOB, she thought CP was from asthma, requested Inhaler, did not help, she said she has on and off chest tightness from asthma attack, EKG has no changes, but trop was elevated ( 0.27-0.6-0.57), She had another episode on 03/01 Had LHC on 03/01 which showed trivial, non-obstructive CAD, normal LVEF. TTE on 02/28 showedLVEF 60%.Normal LV chamber size, wall thickness and function. Mild left ventricular diastolic dysfunction.Normal right ventricular structure and function. Borderline mild pulmonary hypertension. Mild pulmonic regurgitation. Cardiology recommended CT angio to rule out PE. CT angio on 03/01 showed Pulmonary embolism to the right upper lobe. Patient is doing well, no events overnight. She does not have leg swellings. Pending duplex to rule out DVT continue heparin drip for now, can discharge on Eliquis on discharge pending duplex for DVT work up - Exam Vitals: Temp Pulse Resp BP Pulse Ox 98.0 F 91 14 156/78 92 03/02/18 07:23 03/02/18 07:23 03/02/18 07:23 03/02/18 07:23 03/02/18 07:23 Exam: CONSTITUTIONAL: patient appears as an age appropriate female in no acute distress. EYES Clear sclerae, bilateral pupils are equal, reactive to light. EMOI. RESPIRATORY: No accessory muscle use, bilateral clear to auscultation, no wheezing, no crackles/rales. CARDIOVASCULAR: Regular heart rate, normal S1 and S2, no murmurs GASTROINTESTINAL: bowel sounds present, soft, no tenderness. MUSCULOSKELETAL: Joints in normal range of motion, no clubbing, no edema, no cyanosis. Bilateral peripheral pulses 2+. NEUROLOGIC: CN II to XII are grossly intact, no focal neurological deficit. - Assessment and Plan (1) Knee effusion, right Current Visit: Yes Status: Acute Assessment and Plan: appreciate orthpediac consult s/p joint aspiration and steroids injection on consult pT and OT SNF placemnt (2) Chest pain Current Visit: Yes Status: Acute Assessment and Plan: . Chest pain is likely from acute PE, resolved. patient has one episodes of chest tightness at night on 02/28, lasted for 10-20 min, denies radaition, associated with SOB, she thought CP was from asthma, requested Inhaler, did not help, she said she has on and off chest tightness from asthma attack, EKG has no changes, but trop was elevated ( 0.27-0.6-0.57), She had another episode on 03/01 Had LHC on 03/01 which showed trivial, non-obstructive CAD, normal LVEF. TTE on 02/28 showedLVEF 60%.Normal LV chamber size, wall thickness and function. Mild left ventricular diastolic dysfunction.Normal right ventricular structure and function. Borderline mild pulmonary hypertension. Mild pulmonic regurgitation. Cardiology recommended CT angio to rule out PE. CT angio on 03/01 showed Pulmonary embolism to the right upper lobe. continue heparin drip for now, can discharge on Eliquis on discharge pending duplex for DVT work up (3) Type 2 diabetes mellitus Current Visit: Yes Status: Chronic Assessment and Plan: well controlled (4) Hypertension Current Visit: Yes Status: Chronic Assessment and Plan: continue home meds (5) DVT prophylaxis Current Visit: Yes Status: Acute Assessment and Plan: on heparin drip, (6) Asthma Current Visit: Yes Status: Acute Assessment and Plan: continue Prn inhaler (7) Acute pulmonary embolism Current Visit: Yes Status: Acute Assessment and Plan: provoked by knee pain and effusion, pending duplex for DVT work up will need 3-6 months of eliquis follow up with PCP Cardiology signed off - Time Spent with Patient Total time spent is greater than 50% in coordination of care (as documented) at patient's floor/unit and/or counseling patient: 25 - 35 minutes Internal Medicine: Result - Labs CBC & Chem 7: 03/02/18 01:40 03/02/18 01:40 - ABG Interpretation ABG results: PT/INR, D-dimer PT 12.3 Seconds (9.4-12.1) H 02/28/18 13:40 Consult Discharge Plan - Plan Referrals: Nikunj Ash Jr, MD [Primary Care Provider] - (2) Chest pain Qualifiers: Chest pain type: pleurodynia Qualified Code(s): R07.81 - Pleurodynia (3) Type 2 diabetes mellitus Qualifiers: Diabetes mellitus terminal system operator insulin use: without senior living use Diabetes mellitus complication status: without complication Qualified Code(s): E11.9 - Type 2 diabetes mellitus without complications (4) Hypertension Qualifiers: Hypertension type: essential hypertension Qualified Code(s): I10 - Essential (primary) hypertension (6) Asthma Qualifiers: Asthma severity: mild Asthma complication type: unspecified Qualified Code(s ): J45.20 - Mild intermittent asthma, uncomplicated (7) Acute pulmonary embolism Qualifiers: Pulmonary embolism type: other Acute cor pulmonale presence: without acute cor pulmonale Qualified Code(s): I26.99 - Other pulmonary embolism without acute cor pulmonale
[2018-03-02] MEDS: Heparin 25,000 UNIT/500 ML D5W 25,000 UNIT/500 ML BAG IVC SCH (10:33)
[2018-03-02] MEDS: *HR* OxyCODONE/APAP 5/325 TABLET PO PRN (20:59)
[2018-03-02] MEDS: Loratadine 10 MG TABLET PO PRN (20:59)
[2018-03-03] MEDS: 0.9 % Sodium Chloride 1,000 ML IVC SCH ×3 (00:47→20:44)
[2018-03-03] MEDS: Heparin 25,000 UNIT/500 ML D5W 25,000 UNIT/500 ML BAG IVC SCH ×2 (03:59→20:45)
[2018-03-03] MEDS: Aspirin Enteric Coated 81 MG Tablet PO SCH (08:18)
[2018-03-03] MEDS: hydroCHLOROthiazide 25 MG TABLET PO SCH (08:18)
--- NOTE | 2018-03-03 11:43 | Internal Med Progress Note ---
Hospitalist Progress Note - Encounter Date of Encounter: 03/03/18 Time of Encounter: 11:34 - Subjective Interval History: Patient seen and examined this morning. No acute overnight events. Ambulating well with assistance. Knee pain improved. - Exam Vitals: Temp Pulse Resp BP Pulse Ox 97.8 F 84 16 162/93 96 03/03/18 11:02 03/03/18 11:02 03/03/18 11:02 03/03/18 11:02 03/03/18 11:02 Exam: CONSTITUTIONAL: patient appears as an age appropriate female in no acute distress. EYES Clear sclerae, bilateral pupils are equal, reactive to light. EMOI. RESPIRATORY: No accessory muscle use, bilateral clear to auscultation, no wheezing, no crackles/rales. CARDIOVASCULAR: Regular heart rate, normal S1 and S2, no murmurs GASTROINTESTINAL: bowel sounds present, soft, no tenderness. MUSCULOSKELETAL: Joints in normal range of motion, no clubbing, no edema, no cyanosis. Bilateral peripheral pulses 2+. NEUROLOGIC: CN II to XII are grossly intact, no focal neurological deficit. - Assessment and Plan (1) Type 2 diabetes mellitus Current Visit: Yes Status: Chronic (2) Hypertension Current Visit: Yes Status: Chronic (3) DVT prophylaxis Current Visit: Yes Status: Acute (4) Unable to walk Current Visit: Yes Status: Acute (5) Knee effusion, right Current Visit: Yes Status: Acute - Summary of Assessment and Plan Summary of Assessment and Plan: Knee effusion, right - appreciate orthopedic consult s/p joint aspiration and steroids injection on - consult PT and OT - SNF placement Chest pain - Chest pain is likely from acute PE on RUL, resolved. - Had LHC on 03/01 which showed trivial, non-obstructive CAD, normal LVEF. TTE on 02/28 showed LVEF 60%. Borderline mild PHTN. - On heparin drip for now, can discharge on Eliquis on discharge pending duplex for DVT work up Acute pulmonary embolism - provoked by knee pain and effusion, pending duplex for DVT work up - will need 3-6 months of eliquis Type 2 diabetes mellitus - well controlled Hypertension - continue home meds Asthma - continue Prn inhaler DVT prophylaxis - on heparin drip. - Time Spent with Patient Total time spent is greater than 50% in coordination of care (as documented) at patient's floor/unit and/or counseling patient: Internal Medicine: Result - Labs CBC & Chem 7: 03/02/18 01:40 03/02/18 01:40 - ABG Interpretation ABG results: PT/INR, D-dimer PT 12.3 Seconds (9.4-12.1) H 02/28/18 13:40 Consult Discharge Plan - Plan Referrals: Nikunj Ash Jr, MD [Primary Care Provider] - (1) Type 2 diabetes mellitus Qualifiers: Diabetes mellitus terminal operations manager insulin use: without terminal operations manager use Diabetes mellitus complication status: without complication Qualified Code(s): E11.9 - Type 2 diabetes mellitus without complications (2) Hypertension Qualifiers: Hypertension type: essential hypertension Qualified Code(s): I10 - Essential (primary) hypertension
--- NOTE | 2018-03-03 21:23 | Electrocardiograph Report ---
[address] [place], [place] [address] Test Date: 2018-02-28 Pat Name: Mariel Keyes Department: 112 Room: 2A25 Gender: F Director Of Teenage Activities: : 1940 Requested By: Jenna Francois Order Number: [id number] Reading MD: Cha Donis Measurements Intervals [place] Rate: 111 P: 72 TN: 191 QRS: -11 QRSD: 105 T: 57 QT: 338 QTc: 403 Interpretive Statements SINUS TACHYCARDIA POSSIBLE LEFT ATRIAL ENLARGEMENT LOW QRS VOLTAGE IN PRECORDIAL LEADS MODERATE ST DEPRESSION Electronically Signed On 03-03-2018 21:21:55 EDT by Cha Donis
[2018-03-04] MEDS: 0.9 % Sodium Chloride 1,000 ML IVC SCH ×2 (05:29→17:14)
[2018-03-04] MEDS: hydroCHLOROthiazide 25 MG TABLET PO SCH (09:45)
[2018-03-04] MEDS: Aspirin Enteric Coated 81 MG Tablet PO SCH (09:46)
--- NOTE | 2018-03-04 10:32 | Internal Med Progress Note ---
Hospitalist Progress Note - Encounter Date of Encounter: 03/04/18 Time of Encounter: 10:29 - Subjective Interval History: Patient seen and examined this morning. No acute overnight events. Ambulating well with assistance. Knee pain improved. on and off watery diarrhea. - Exam Vitals: Temp Pulse Resp BP Pulse Ox 98.3 F 75 16 146/86 93 03/04/18 07:48 03/04/18 07:48 03/04/18 07:48 03/04/18 07:48 03/04/18 07:48 Exam: CONSTITUTIONAL: patient appears as an age appropriate female in no acute distress. EYES Clear sclerae, bilateral pupils are equal, reactive to light. EMOI. RESPIRATORY: No accessory muscle use, bilateral clear to auscultation, no wheezing, no crackles/rales. CARDIOVASCULAR: Regular heart rate, normal S1 and S2, no murmurs GASTROINTESTINAL: bowel sounds present, soft, no tenderness. MUSCULOSKELETAL: Joints in normal range of motion, no clubbing, no edema, no cyanosis. Bilateral peripheral pulses 2+. NEUROLOGIC: CN II to XII are grossly intact, no focal neurological deficit. - Assessment and Plan (1) Type 2 diabetes mellitus Current Visit: Yes Status: Chronic (2) Hypertension Current Visit: Yes Status: Chronic (3) DVT prophylaxis Current Visit: Yes Status: Acute (4) Unable to walk Current Visit: Yes Status: Acute (5) Knee effusion, right Current Visit: Yes Status: Acute - Summary of Assessment and Plan Summary of Assessment and Plan: Knee effusion, right - appreciate orthopedic consult s/p joint aspiration and steroids injection on - consult PT and OT - Awaiting SNF placement Chest pain - Chest pain is likely from acute PE on RUL, resolved. - Had LHC on 03/01 which showed trivial, non-obstructive CAD, normal LVEF. TTE on 02/28 showed LVEF 60%. Borderline mild PHTN. - On heparin drip for now, can discharge on Eliquis on discharge pending duplex for DVT work up Acute pulmonary embolism - provoked by knee pain and effusion. duplex for DVT with acute partially occlusive thrombus seen in the right popliteal. - On heparin drip. will need 3-6 months of eliquis. Diarrhea - on and off. history of same at baseline. has IBS history. - will monitor for now. Type 2 diabetes mellitus - well controlled Hypertension - continue home meds Asthma - continue Prn inhaler DVT prophylaxis - on heparin drip. - Time Spent with Patient Total time spent is greater than 50% in coordination of care (as documented) at patient's floor/unit and/or counseling patient: Internal Medicine: Result - Labs CBC & Chem 7: 03/02/18 01:40 03/02/18 01:40 - ABG Interpretation ABG results: PT/INR, D-dimer PT 12.3 Seconds (9.4-12.1) H 02/28/18 13:40 Consult Discharge Plan - Plan Referrals: Nikunj Ash Jr, MD [Primary Care Provider] - (1) Type 2 diabetes mellitus Qualifiers: Diabetes mellitus buttermaker continuous churn insulin use: without buttermaker continuous churn use Diabetes mellitus complication status: without complication Qualified Code(s): E11.9 - Type 2 diabetes mellitus without complications (2) Hypertension Qualifiers: Hypertension type: essential hypertension Qualified Code(s): I10 - Essential (primary) hypertension
[2018-03-04] MEDS: Heparin 25,000 UNIT/500 ML D5W 25,000 UNIT/500 ML BAG IVC SCH (14:35)
[2018-03-04] MEDS: Loratadine 10 MG TABLET PO PRN (20:22)
--- NOTE | 2018-03-04 21:57 | Electrocardiograph Report ---
[address] [address] Test Date: 2018-03-01 Pat Name: Mariel Keyes Department: 112 Room: 2A25 Gender: F Personal Loan Specialist: MARY : 1940 Requested By: Anish Donis Order Number: [id number] Reading MD: Deejay Kumar Measurements Intervals [place] Rate: 82 P: 75 GA: 206 QRS: -30 QRSD: 88 T: -52 QT: 405 QTc: 444 Interpretive Statements SINUS RHYTHM WITH OCCASIONAL VENTRICULAR PREMATURE COMPLEXES WITH FREQUENT SUPRAVENTRICULAR PREMATURE COMPLEXES BORDERLINE LEFT AXIS DEVIATION MODERATE T-WAVE ABNORMALITY, CONSIDER ANTERIOR ISCHEMIA MODERATE T-WAVE ABNORMALITY, CONSIDER INFERIOR ISCHEMIA Low voltage throughout Electronically Signed On 03-04-2018 21:56:11 EDT by Deejay Kumar
[2018-03-05] MEDS: 0.9 % Sodium Chloride 1,000 ML IVC SCH ×3 (02:50→21:38)
[2018-03-05] MEDS: hydroCHLOROthiazide 25 MG TABLET PO SCH (07:39)
[2018-03-05] MEDS: Aspirin Enteric Coated 81 MG Tablet PO SCH (07:39)
[2018-03-05] MEDS: Heparin 25,000 UNIT/500 ML D5W 25,000 UNIT/500 ML BAG IVC SCH (07:54)
--- NOTE | 2018-03-05 11:07 | Internal Med Progress Note ---
Hospitalist Progress Note - Encounter Date of Encounter: 03/05/18 Time of Encounter: 11:06 - Subjective Interval History: Patient seen and examined this morning. No new complains. - Exam Vitals: Temp Pulse Resp BP Pulse Ox 99.4 F 85 18 116/73 94 03/05/18 08:12 03/05/18 08:12 03/05/18 08:12 03/05/18 08:12 03/05/18 08:12 Exam: CONSTITUTIONAL: patient appears as an age appropriate female in no acute distress. EYES Clear sclerae, bilateral pupils are equal, reactive to light. EMOI. RESPIRATORY: No accessory muscle use, bilateral clear to auscultation, no wheezing, no crackles/rales. CARDIOVASCULAR: Regular heart rate, normal S1 and S2, no murmurs GASTROINTESTINAL: bowel sounds present, soft, no tenderness. MUSCULOSKELETAL: Joints in normal range of motion,mild Rt knee pain, no clubbing , no edema, no cyanosis. Bilateral peripheral pulses 1+. NEUROLOGIC: CN II to XII are grossly intact, no focal neurological deficit. - Assessment and Plan (1) Type 2 diabetes mellitus Current Visit: Yes Status: Chronic (2) Hypertension Current Visit: Yes Status: Chronic (3) DVT prophylaxis Current Visit: Yes Status: Acute (4) Unable to walk Current Visit: Yes Status: Acute (5) Knee effusion, right Current Visit: Yes Status: Acute - Time Spent with Patient Total time spent is greater than 50% in coordination of care (as documented) at patient's floor/unit and/or counseling patient: Internal Medicine: Result - Labs CBC & Chem 7: 03/02/18 01:40 03/02/18 01:40 - ABG Interpretation ABG results: PT/INR, D-dimer PT 12.3 Seconds (9.4-12.1) H 02/28/18 13:40 Consult Discharge Plan - Plan Referrals: Nikunj Ash Jr, MD [Primary Care Provider] - (1) Type 2 diabetes mellitus Qualifiers: Diabetes mellitus prison insulin use: without joint terminal attack controller use Diabetes mellitus complication status: without complication Qualified Code(s): E11.9 - Type 2 diabetes mellitus without complications (2) Hypertension Qualifiers: Hypertension type: essential hypertension Qualified Code(s): I10 - Essential (primary) hypertension
--- NOTE | 2018-03-05 11:58 | Internal Med Progress Note ---
Hospitalist Progress Note - Encounter Date of Encounter: 03/05/18 Time of Encounter: 11:55 - Subjective Interval History: Patient seen and examined this morning. Denies new complains. - Exam Vitals: Temp Pulse Resp BP Pulse Ox 98.4 F 70 19 131/63 97 03/05/18 11:46 03/05/18 11:46 03/05/18 11:46 03/05/18 11:46 03/05/18 11:46 Exam: CONSTITUTIONAL: patient appears as an age appropriate female in no acute distress. EYES Clear sclerae, bilateral pupils are equal, reactive to light. EMOI. RESPIRATORY: No accessory muscle use, bilateral clear to auscultation, no wheezing, no crackles/rales. CARDIOVASCULAR: Regular heart rate, normal S1 and S2, no murmurs GASTROINTESTINAL: bowel sounds present, soft, no tenderness. MUSCULOSKELETAL: Joints in normal range of motion,mild Rt knee pain, no clubbing , no edema, no cyanosis. Bilateral peripheral pulses 1+. NEUROLOGIC: CN II to XII are grossly intact, no focal neurological deficit. - Assessment and Plan (1) Type 2 diabetes mellitus Current Visit: Yes Status: Chronic (2) Hypertension Current Visit: Yes Status: Chronic (3) DVT prophylaxis Current Visit: Yes Status: Acute (4) Unable to walk Current Visit: Yes Status: Acute (5) Knee effusion, right Current Visit: Yes Status: Acute - Summary of Assessment and Plan Summary of Assessment and Plan: Knee effusion, right - appreciate orthopedic consult s/p joint aspiration and steroids injection on - PT and OT recommends SN - awating SNF placement. Was rejected. Placement underway. Chest pain - Chest pain is likely from acute PE on RUL, resolved. - Had LHC on 03/01 which showed trivial, non-obstructive CAD, normal LVEF. TTE on 02/28 showed LVEF 60%. Borderline mild PHTN. - On heparin drip for now, can discharge on Eliquis. Acute pulmonary embolism - provoked by knee pain and effusion. duplex for DVT with acute partially occlusive thrombus seen in the right popliteal. - On heparin drip. will need 3-6 months of eliquis. Diarrhea - on and off. history of same at baseline. has IBS history. - will monitor for now. Type 2 diabetes mellitus - well controlled Hypertension - continue home meds Asthma - continue Prn inhaler DVT prophylaxis - on heparin drip. - Time Spent with Patient Total time spent is greater than 50% in coordination of care (as documented) at patient's floor/unit and/or counseling patient: Internal Medicine: Result - Labs CBC & Chem 7: 03/02/18 01:40 03/02/18 01:40 - ABG Interpretation ABG results: PT/INR, D-dimer PT 12.3 Seconds (9.4-12.1) H 02/28/18 13:40 Consult Discharge Plan - Plan Referrals: Nikunj Ash Jr, MD [Primary Care Provider] - (1) Type 2 diabetes mellitus Qualifiers: Diabetes mellitus usp insulin use: without buttermaker use Diabetes mellitus complication status: without complication Qualified Code(s): E11.9 - Type 2 diabetes mellitus without complications (2) Hypertension Qualifiers: Hypertension type: essential hypertension Qualified Code(s): I10 - Essential (primary) hypertension
[2018-03-05 13:33] LABS: Heparin anti-factor XA UFH 0.18 IU/mL (0.30-0.70)
[2018-03-05 13:34] LABS: INR 1.1; Prothrombin Time 12.2 Seconds (9.4-12.1)
[2018-03-05] MEDS ORDERED: *HR* Warfarin 5 MG TABLET PO ONE ×2 (14:19→18:00)
[2018-03-05] MEDS ORDERED: Warfarin perPT PO PRN (18:00)
[2018-03-05] MEDS: Loratadine 10 MG TABLET PO PRN (21:38)
[2018-03-06 04:27] LABS: INR 1.1; Prothrombin Time 12.5 Seconds (9.4-12.1)
[2018-03-06] MEDS: Heparin 25,000 UNIT/500 ML D5W 25,000 UNIT/500 ML BAG IVC SCH ×3 (04:46→20:27)
[2018-03-06] MEDS: Aspirin Enteric Coated 81 MG Tablet PO SCH (09:04)
[2018-03-06] MEDS: hydroCHLOROthiazide 25 MG TABLET PO SCH (09:05)
--- NOTE | 2018-03-06 09:40 | Internal Med Progress Note ---
Hospitalist Progress Note - Encounter Date of Encounter: 03/06/18 Time of Encounter: 09:35 - Subjective Interval History: Patient seen and examined this morning. No acute overnight events. Mild expectoration. No chest pains, shortness of breath or hypoxia. - Exam Vitals: Temp Pulse Resp BP Pulse Ox 98.1 F 86 16 138/75 93 03/06/18 08:10 03/06/18 08:10 03/06/18 08:10 03/06/18 08:10 03/06/18 08:10 Exam: CONSTITUTIONAL: patient appears as an age appropriate female in no acute distress. EYES Clear sclerae, bilateral pupils are equal, reactive to light. EMOI. RESPIRATORY: No accessory muscle use, bilateral clear to auscultation, no wheezing, no crackles/rales. CARDIOVASCULAR: Regular heart rate, normal S1 and S2, no murmurs GASTROINTESTINAL: bowel sounds present, soft, no tenderness. MUSCULOSKELETAL: Joints in normal range of motion,mild Rt knee pain, no clubbing , no edema, no cyanosis. Bilateral peripheral pulses 1+. NEUROLOGIC: CN II to XII are grossly intact, no focal neurological deficit. - Assessment and Plan (1) Type 2 diabetes mellitus Current Visit: Yes Status: Chronic (2) Hypertension Current Visit: Yes Status: Chronic (3) DVT prophylaxis Current Visit: Yes Status: Acute (4) Unable to walk Current Visit: Yes Status: Acute (5) Knee effusion, right Current Visit: Yes Status: Acute - Summary of Assessment and Plan Summary of Assessment and Plan: Acute pulmonary embolism - provoked by knee pain and effusion. duplex for DVT with acute partially occlusive thrombus seen in the right popliteal. - On heparin drip. Would not be able to afford eliquis or xarelto. Does not feel comfortable giving herself Lovenox injections. Started on coumadin bridging. Chest pain - Chest pain is likely from acute PE on RUL, resolved. - Had LHC on 03/01 which showed trivial, non-obstructive CAD, normal LVEF. TTE on 02/28 showed LVEF 60%. Borderline mild PHTN. - On heparin drip for now. Being briged with heparin to coumdain. Knee effusion, right - appreciate orthopedic consult s/p joint aspiration and steroids injection on - PT and OT recommends SN - awating SNF placement. Was rejected. Placement underway. Diarrhea - on and off. history of same at baseline. has IBS history. - will monitor for now. Type 2 diabetes mellitus - well controlled Hypertension - continue home meds Asthma - continue Prn inhaler DVT prophylaxis - on heparin drip. - Time Spent with Patient Total time spent is greater than 50% in coordination of care (as documented) at patient's floor/unit and/or counseling patient: Internal Medicine: Result - Labs CBC & Chem 7: 03/02/18 01:40 03/02/18 01:40 - ABG Interpretation ABG results: PT/INR, D-dimer PT 12.5 Seconds (9.4-12.1) H 03/06/18 03:43 Consult Discharge Plan - Plan Referrals: Nikunj Ash Jr, MD [Primary Care Provider] - (1) Type 2 diabetes mellitus Qualifiers: Diabetes mellitus prison insulin use: without watermaster use Diabetes mellitus complication status: without complication Qualified Code(s): E11.9 - Type 2 diabetes mellitus without complications (2) Hypertension Qualifiers: Hypertension type: essential hypertension Qualified Code(s): I10 - Essential (primary) hypertension
[2018-03-06] MEDS: 0.9 % Sodium Chloride 1,000 ML IVC SCH ×2 (09:50→20:18)
[2018-03-06] MEDS ORDERED: Acetaminophen 325 MG TABLET PO PRN (14:26)
[2018-03-06] MEDS ORDERED: *HR* Warfarin 3 MG TABLET PO ONE (18:00)
[2018-03-06] MEDS: Loratadine 10 MG TABLET PO PRN (20:16)
[2018-03-07 04:57] LABS: INR 1.2; Prothrombin Time 13.1 Seconds (9.4-12.1)
[2018-03-07] MEDS: 0.9 % Sodium Chloride 1,000 ML IVC SCH ×3 (05:27→15:49)
[2018-03-07] MEDS: hydroCHLOROthiazide 25 MG TABLET PO SCH (08:56)
[2018-03-07] MEDS: Aspirin Enteric Coated 81 MG Tablet PO SCH (08:57)
--- NOTE | 2018-03-07 10:56 | Internal Med Progress Note ---
Hospitalist Progress Note - Encounter Date of Encounter: 03/07/18 Time of Encounter: 10:54 - Subjective Interval History: Patient seen and examined this morning. No chest pains, shortness of breath or hypoxia. - Exam Vitals: Temp Pulse Resp BP Pulse Ox 98.2 F 89 17 120/77 95 03/07/18 07:15 03/07/18 07:15 03/07/18 07:15 03/07/18 07:15 03/07/18 07:15 Exam: CONSTITUTIONAL: patient appears as an age appropriate female in no acute distress. EYES Clear sclerae, bilateral pupils are equal, reactive to light. EMOI. RESPIRATORY: No accessory muscle use, bilateral clear to auscultation, no wheezing, no crackles/rales. CARDIOVASCULAR: Regular heart rate, normal S1 and S2, no murmurs GASTROINTESTINAL: bowel sounds present, soft, no tenderness. MUSCULOSKELETAL: Joints in normal range of motion,mild Rt knee pain, no clubbing , no edema, no cyanosis. Bilateral peripheral pulses 1+. NEUROLOGIC: CN II to XII are grossly intact, no focal neurological deficit. - Assessment and Plan (1) Type 2 diabetes mellitus Current Visit: Yes Status: Chronic (2) Hypertension Current Visit: Yes Status: Chronic (3) DVT prophylaxis Current Visit: Yes Status: Acute (4) Unable to walk Current Visit: Yes Status: Acute (5) Knee effusion, right Current Visit: Yes Status: Acute - Summary of Assessment and Plan Summary of Assessment and Plan: Acute pulmonary embolism - provoked by knee pain and effusion. duplex for DVT with acute partially occlusive thrombus seen in the right popliteal. - On heparin drip. Would not be able to afford eliquis or xarelto. Does not feel comfortable giving herself Lovenox injections. Started on coumadin bridging. - INR subtherapeutic at 1.2. Continue coumadin till therapeutic with INR 2-3. Chest pain - Chest pain is likely from acute PE on RUL, resolved. - Had LHC on 03/01 which showed trivial, non-obstructive CAD, normal LVEF. TTE on 02/28 showed LVEF 60%. Borderline mild PHTN. - On heparin drip for now. Being briged with heparin to coumdain. Knee effusion, right - appreciate orthopedic consult s/p joint aspiration and steroids injection on - PT and OT recommends SN - awating SNF placement. Was rejected. Placement underway. Diarrhea - on and off. history of same at baseline. has IBS history. - will monitor for now. Type 2 diabetes mellitus - well controlled Hypertension - continue home meds Asthma - continue Prn inhaler DVT prophylaxis - on heparin drip. - Time Spent with Patient Total time spent is greater than 50% in coordination of care (as documented) at patient's floor/unit and/or counseling patient: Internal Medicine: Result - Labs CBC & Chem 7: 03/02/18 01:40 03/02/18 01:40 - ABG Interpretation ABG results: PT/INR, D-dimer PT 13.1 Seconds (9.4-12.1) H 03/07/18 04:37 Consult Discharge Plan - Plan Referrals: Nikunj Ash Jr, MD [Primary Care Provider] - (1) Type 2 diabetes mellitus Qualifiers: Diabetes mellitus terminal clerk insulin use: without terminal clerk use Diabetes mellitus complication status: without complication Qualified Code(s): E11.9 - Type 2 diabetes mellitus without complications (2) Hypertension Qualifiers: Hypertension type: essential hypertension Qualified Code(s): I10 - Essential (primary) hypertension
[2018-03-07] MEDS: Heparin 25,000 UNIT/500 ML D5W 25,000 UNIT/500 ML BAG IVC SCH (11:51)
[2018-03-07] MEDS ORDERED: *HR* Warfarin 3 MG TABLET PO ONE (18:00)
[2018-03-08] MEDS: 0.9 % Sodium Chloride 1,000 ML IVC SCH (01:54)
[2018-03-08] MEDS: Heparin 25,000 UNIT/500 ML D5W 25,000 UNIT/500 ML BAG IVC SCH ×2 (04:13→19:45)
[2018-03-08 06:22] LABS: INR 1.1; Prothrombin Time 12.5 Seconds (9.4-12.1)
[2018-03-08] MEDS: Aspirin Enteric Coated 81 MG Tablet PO SCH (08:30)
[2018-03-08] MEDS: hydroCHLOROthiazide 25 MG TABLET PO SCH (08:30)
--- NOTE | 2018-03-08 10:56 | Internal Med Progress Note ---
Hospitalist Progress Note - Encounter Date of Encounter: 03/08/18 Time of Encounter: 10:53 - Subjective Interval History: Patient seen and examined this morning. No new complains. - Exam Vitals: Temp Pulse Resp BP Pulse Ox 98.0 F 76 17 161/70 96 03/08/18 08:32 03/08/18 08:32 03/08/18 08:32 03/08/18 08:32 03/08/18 08:32 Exam: CONSTITUTIONAL: patient appears as an age appropriate female in no acute distress. EYES Clear sclerae, bilateral pupils are equal, reactive to light. EMOI. RESPIRATORY: No accessory muscle use, bilateral clear to auscultation, no wheezing, no crackles/rales. CARDIOVASCULAR: Regular heart rate, normal S1 and S2, no murmurs GASTROINTESTINAL: bowel sounds present, soft, no tenderness. MUSCULOSKELETAL: Joints in normal range of motion,mild Rt knee pain, no clubbing , no edema, no cyanosis. Bilateral peripheral pulses 1+. NEUROLOGIC: CN II to XII are grossly intact, no focal neurological deficit. - Assessment and Plan (1) Type 2 diabetes mellitus Current Visit: Yes Status: Chronic (2) Hypertension Current Visit: Yes Status: Chronic (3) DVT prophylaxis Current Visit: Yes Status: Acute (4) Unable to walk Current Visit: Yes Status: Acute (5) Knee effusion, right Current Visit: Yes Status: Acute - Summary of Assessment and Plan Summary of Assessment and Plan: Acute pulmonary embolism - provoked by knee pain and effusion. duplex for DVT with acute partially occlusive thrombus seen in the right popliteal. - On heparin drip. Would not be able to afford eliquis or xarelto. Does not feel comfortable giving herself Lovenox injections. Started on coumadin bridging. - INR still subtherapeutic at 1.1. Got 5, 3,3 mg dose previously. Asked pharmacy to increase dose to 5 today. Continue coumadin till therapeutic with INR 2-3. Chest pain - Chest pain is likely from acute PE on RUL, resolved. - Had LHC on 03/01 which showed trivial, non-obstructive CAD, normal LVEF. TTE on 02/28 showed LVEF 60%. Borderline mild PHTN. - On heparin drip for now. Being briged with heparin to coumdain. Knee effusion, right - appreciate orthopedic consult s/p joint aspiration and steroids injection on - PT and OT recommends SN - Patient to go home on discharge. Diarrhea - on and off. history of same at baseline. has IBS history. - will monitor for now. Type 2 diabetes mellitus - well controlled Hypertension - continue home meds Asthma - continue Prn inhaler DVT prophylaxis - on heparin drip. - Time Spent with Patient Total time spent is greater than 50% in coordination of care (as documented) at patient's floor/unit and/or counseling patient: Internal Medicine: Result - Labs CBC & Chem 7: 03/02/18 01:40 03/02/18 01:40 - ABG Interpretation ABG results: PT/INR, D-dimer PT 12.5 Seconds (9.4-12.1) H 03/08/18 06:03 Consult Discharge Plan - Plan Referrals: Nikunj Ash Jr, MD [Primary Care Provider] - (1) Type 2 diabetes mellitus Qualifiers: Diabetes mellitus mcc insulin use: without human resources services specialist use Diabetes mellitus complication status: without complication Qualified Code(s): E11.9 - Type 2 diabetes mellitus without complications (2) Hypertension Qualifiers: Hypertension type: essential hypertension Qualified Code(s): I10 - Essential (primary) hypertension
[2018-03-08] MEDS ORDERED: *HR* Warfarin 5 MG TABLET PO ONE (18:00)
[2018-03-09 06:18] LABS: INR 1.2; Prothrombin Time 13.2 Seconds (9.4-12.1)
[2018-03-09] MEDS: hydroCHLOROthiazide 25 MG TABLET PO SCH (09:28)
[2018-03-09] MEDS: Aspirin Enteric Coated 81 MG Tablet PO SCH (09:29)
--- NOTE | 2018-03-09 10:33 | Internal Med Progress Note ---
Hospitalist Progress Note - Encounter Date of Encounter: 03/09/18 Time of Encounter: 10:31 - Subjective Interval History: No new complains. No chest pain, shortness of breath. Ambulating well. - Exam Vitals: Temp Pulse Resp BP Pulse Ox 97.8 F 70 16 170/85 94 03/09/18 08:01 03/09/18 08:01 03/09/18 08:01 03/09/18 08:01 03/09/18 08:01 Exam: CONSTITUTIONAL: patient appears as an age appropriate female in no acute distress. RESPIRATORY: No accessory muscle use, bilateral clear to auscultation, no wheezing, no crackles/rales. CARDIOVASCULAR: Regular heart rate, normal S1 and S2, no murmurs GASTROINTESTINAL: bowel sounds present, soft, no tenderness. MUSCULOSKELETAL: Joints in normal range of motion,mild Rt knee pain, no clubbing , no edema, no cyanosis. Bilateral peripheral pulses 1+. NEUROLOGIC: CN II to XII are grossly intact, no focal neurological deficit. - Assessment and Plan (1) Type 2 diabetes mellitus Current Visit: Yes Status: Chronic (2) Hypertension Current Visit: Yes Status: Chronic (3) DVT prophylaxis Current Visit: Yes Status: Acute (4) Unable to walk Current Visit: Yes Status: Acute (5) Knee effusion, right Current Visit: Yes Status: Acute - Summary of Assessment and Plan Summary of Assessment and Plan: Acute pulmonary embolism - provoked by knee pain and effusion. duplex for DVT with acute partially occlusive thrombus seen in the right popliteal. - On heparin drip. Would not be able to afford eliquis or xarelto. Does not feel comfortable giving herself Lovenox injections. Started on coumadin bridging. - INR still subtherapeutic at 1.1. Got 5, 3,3, 5 mg dose previously. Continue coumadin till therapeutic with INR 2-3. Chest pain - Chest pain is likely from acute PE on RUL, resolved. - Had LHC on 03/01 which showed trivial, non-obstructive CAD, normal LVEF. TTE on 02/28 showed LVEF 60%. Borderline mild PHTN. - On heparin drip for now. Being briged with heparin to coumdain. Knee effusion, right - appreciate orthopedic consult s/p joint aspiration and steroids injection on - PT and OT recommends SN - Patient to go home on discharge. Diarrhea - on and off. history of same at baseline. has IBS history. - will monitor for now. Type 2 diabetes mellitus - well controlled Hypertension - continue home meds Asthma - continue Prn inhaler DVT prophylaxis - on heparin drip. - Time Spent with Patient Total time spent is greater than 50% in coordination of care (as documented) at patient's floor/unit and/or counseling patient: Internal Medicine: Result - Labs CBC & Chem 7: 03/02/18 01:40 03/02/18 01:40 - ABG Interpretation ABG results: PT/INR, D-dimer PT 13.2 Seconds (9.4-12.1) H 03/09/18 05:37 Consult Discharge Plan - Plan Referrals: Nikunj Ash Jr, MD [Primary Care Provider] - (1) Type 2 diabetes mellitus Qualifiers: Diabetes mellitus kickboxing instructor insulin use: without longterm use Diabetes mellitus complication status: without complication Qualified Code(s): E11.9 - Type 2 diabetes mellitus without complications (2) Hypertension Qualifiers: Hypertension type: essential hypertension Qualified Code(s): I10 - Essential (primary) hypertension
[2018-03-09] MEDS: Heparin 25,000 UNIT/500 ML D5W 25,000 UNIT/500 ML BAG IVC SCH (10:58)
[2018-03-09] MEDS ORDERED: *HR* Warfarin 5 MG TABLET PO ONE (18:00)
[2018-03-10 03:50] LABS: Heparin anti-factor XA UFH 0.59 IU/mL (0.30-0.70)
[2018-03-10 03:51] LABS: INR 1.2; Prothrombin Time 13.7 Seconds (9.4-12.1)
[2018-03-10] MEDS: Heparin 25,000 UNIT/500 ML D5W 25,000 UNIT/500 ML BAG IVC SCH (05:15)
[2018-03-10] MEDS: Aspirin Enteric Coated 81 MG Tablet PO SCH (10:05)
[2018-03-10] MEDS: hydroCHLOROthiazide 25 MG TABLET PO SCH (10:05)
--- NOTE | 2018-03-10 11:30 | Internal Med Progress Note ---
Hospitalist Progress Note - Encounter Date of Encounter: 03/10/18 Time of Encounter: 11:28 - Subjective Interval History: Patient seen and examined at bedside. Patient no acute overnight events. Patient with no complaints today. Patient has any chest pain, shortness breath , nausea, vomiting, diarrhea. Awaiting therapeutic INR. - Exam Vitals: Temp Pulse Resp BP Pulse Ox 98.1 F 65 15 144/72 96 03/10/18 07:51 03/10/18 07:51 03/10/18 07:51 03/10/18 07:51 03/10/18 07:51 Exam: Constitutional: No acute distress, Alert Psych: AAO x 3 HEENT: NCAT, EOMI Neck: supple, no JVD Cardio: regular rate and rhythm, +s1s2, no murmurs/rubs/gallops, no JVD Resp: clear to ascultation bilaterally, no wheezes/rales/ronchi Abd: soft, non tender/non distended, positive bowel sounds, no gaurding/reboud/ ridgitity Extremities: Right lower extremity edema greater than left, mild ecchymosis on bilateral forearms Neuro: no focal deficits appreciated - Assessment and Plan (1) Acute pulmonary embolism Current Visit: Yes Status: Acute Assessment and Plan: Acute provoked pulmonary embolism with right lower extremity DVT -Continue heparin drip -Continue bridging with Coumadin until INR therapeutic -INR 1.2 today -Pharmacy to dose Coumadin -Patient uncomfortable with giving Lovenox injections and cannot afford NOACs -Remain inpatient until INR therapeutic (2) Type 2 diabetes mellitus Current Visit: Yes Status: Chronic Assessment and Plan: -Resume metformin (3) Hypertension Current Visit: Yes Status: Chronic Assessment and Plan: -monitor bp -continue home meds (4) DVT prophylaxis Current Visit: Yes Status: Acute Assessment and Plan: hep gtt, coumadin DVT Prophylaxis: hep gtt, coumadin - Time Spent with Patient Total time spent is greater than 50% in coordination of care (as documented) at patient's floor/unit and/or counseling patient: 25 - 35 minutes Plan of Care Discussed with: patient Internal Medicine: Result - Labs CBC & Chem 7: 03/02/18 01:40 03/02/18 01:40 - ABG Interpretation ABG results: PT/INR, D-dimer PT 13.7 Seconds (9.4-12.1) H 03/10/18 03:33 Consult Discharge Plan - Plan Referrals: Nikunj Ash Jr, MD [Primary Care Provider] - (1) Acute pulmonary embolism Qualifiers: Pulmonary embolism type: other Acute cor pulmonale presence: without acute cor pulmonale Qualified Code(s): I26.99 - Other pulmonary embolism without acute cor pulmonale (2) Type 2 diabetes mellitus Qualifiers: Diabetes mellitus telescope maintenance insulin use: without fpc use Diabetes mellitus complication status: without complication Qualified Code(s): E11.9 - Type 2 diabetes mellitus without complications (3) Hypertension Qualifiers: Hypertension type: essential hypertension Qualified Code(s): I10 - Essential (primary) hypertension
[2018-03-10] MEDS: *HR* Metformin 500 MG TABLET PO SCH (16:54)
[2018-03-10] MEDS ORDERED: *HR* Warfarin 5 MG TABLET PO ONE (18:00)
[2018-03-11] MEDS: Heparin 25,000 UNIT/500 ML D5W 25,000 UNIT/500 ML BAG IVC SCH (03:20)
[2018-03-11 07:05] LABS: INR 1.2; Prothrombin Time 13.4 Seconds (9.4-12.1)
[2018-03-11] MEDS: hydroCHLOROthiazide 25 MG TABLET PO SCH (08:01)
[2018-03-11] MEDS: Aspirin Enteric Coated 81 MG Tablet PO SCH (08:01)
[2018-03-11] MEDS: *HR* Metformin 500 MG TABLET PO SCH ×2 (08:02→17:23)
--- NOTE | 2018-03-11 09:00 | Internal Med Progress Note ---
Hospitalist Progress Note - Encounter Date of Encounter: 03/11/18 Time of Encounter: 08:58 - Subjective Interval History: Patient seen and examined at bedside. Patient no acute overnight events. Patient with no complaints today. Patient has any chest pain, shortness breath , nausea, vomiting, diarrhea. Patient states she feels better today. Awaiting therapeutic INR. No change - Exam Vitals: Temp Pulse Resp BP Pulse Ox 98.3 F 74 17 138/83 94 03/11/18 03:56 03/11/18 03:56 03/11/18 03:56 03/11/18 08:00 03/11/18 03:56 Exam: Constitutional: No acute distress, Alert Psych: AAO x 3 HEENT: NCAT, EOMI Neck: supple, no JVD Cardio: regular rate and rhythm, +s1s2 Resp: clear to ascultation bilaterally Abd: soft, non tender/non distended Extremities: Right lower extremity edema greater than left, mild ecchymosis on bilateral forearms Neuro: no focal deficits appreciated - Assessment and Plan (1) Acute pulmonary embolism Current Visit: Yes Status: Acute Assessment and Plan: Acute provoked pulmonary embolism with right lower extremity DVT -Continue heparin drip -Continue bridging with Coumadin until INR therapeutic -INR 1.2 today again -Pharmacy to dose Coumadin increase dose today -Patient uncomfortable with giving Lovenox injections herself and cannot afford NOACs -Remain inpatient until INR therapeutic -Discuss with case management about possibility of placement and ECF for rehabilitation therefore could have Lovenox injections while awaiting therapeutic INR (2) Type 2 diabetes mellitus Current Visit: Yes Status: Chronic Assessment and Plan: -continue metformin (3) Hypertension Current Visit: Yes Status: Chronic Assessment and Plan: -monitor bp -continue home meds -bp stable (4) DVT prophylaxis Current Visit: Yes Status: Acute Assessment and Plan: hep gtt, coumadin DVT Prophylaxis: hep gtt, coumadin - Time Spent with Patient Total time spent is greater than 50% in coordination of care (as documented) at patient's floor/unit and/or counseling patient: less than 15 minutes Plan of Care Discussed with: patient Internal Medicine: Result - Labs CBC & Chem 7: 03/02/18 01:40 03/02/18 01:40 - ABG Interpretation ABG results: PT/INR, D-dimer PT 13.4 Seconds (9.4-12.1) H 03/11/18 06:37 Consult Discharge Plan - Plan Referrals: Nikunj Ash Jr, MD [Primary Care Provider] - (1) Acute pulmonary embolism Qualifiers: Pulmonary embolism type: other Acute cor pulmonale presence: without acute cor pulmonale Qualified Code(s): I26.99 - Other pulmonary embolism without acute cor pulmonale (2) Type 2 diabetes mellitus Qualifiers: Diabetes mellitus manager terminal insulin use: without snf use Diabetes mellitus complication status: without complication Qualified Code(s): E11.9 - Type 2 diabetes mellitus without complications (3) Hypertension Qualifiers: Hypertension type: essential hypertension Qualified Code(s): I10 - Essential (primary) hypertension
--- NOTE | 2018-03-11 14:32 | Physician Discharge Referral ---
ExtendedCare Referral Info Transfer To: [facility] Provider in Charge after Transfer: PCP Institutional Level of Care: Skilled (needs nursing and physical therapy) - Diagnosis (1) Acute pulmonary embolism Status: Acute (2) Type 2 diabetes mellitus Status: Chronic (3) Hypertension Status: Chronic (4) DVT prophylaxis Status: Acute - Transfer Medications Home Medications: Cetirizine HCl [Zyrtec] 10 mg PO DAILY PRN 09/18/16 [History] Tramadol HCl [Ultram] 50 mg PO Q6H PRN 09/18/16 [History] metFORMIN [Glucophage] 500 mg PO BIDWM 09/18/16 [History] Albuterol Sulfate [Albuterol Inhaler] 2 puff IH Q4HR PRN 11/20/16 [History] Aspirin Enteric Coated [Aspirin EC] 81 mg PO DAILY 11/20/16 [History] hydroCHLOROthiazide [Hydrochlorothiazide] 12.5 mg PO DAILY #30 tablet 11/22/16 [ Rx] Losartan Potassium [Cozaar] 50 mg PO DAILY 09/12/17 [History] Meloxicam [Mobic] 15 mg PO DAILY 09/12/17 [History] Allergies/Adverse Reactions: 3 Allergy/AdvReac Type Severity Reaction Status Date / Time azithromycin Allergy Swelling Verified 09/18/16 18:51 [From Zithromax Z-Silvano] of Lip/Tongue/Throat cephalexin [From Keflex] Allergy Rash Verified 09/18/16 18:51 - Respiratory Orders Smoking Cessation: Smoking cessation has been advised. For more information, call the [place] Tobacco Quit Line at 4-523-YREINOW. CERTIFICATION: I certify that the transfer of the above named patient to an Extended Care Facility is necessary for the continuing treatment of the diagnosis listed. The above information is true and accurate reflection of patient's current condition. Confidential - Redisclosure prohibited without a patient's written consent.
--- NOTE | 2018-03-11 14:43 | Discharge Summary ---
- NOTES TO OUTPATIENT PROVIDER Notes to Outpatient Provider: Pt needs daily INR with daily dosing of coumain at ECF. Will be discharged with 7.5mg daily and INR of 1.2. Has recieved total of 26mg of coumadin over 6 days prior to discharge. Will be discharged on lovenox bid until INR therapeutic. 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 03/13/18 04:00 PT/INR [Prothrombin Time INR] [COAG] AM 0400 03/14/18 04:00 PT/INR [Prothrombin Time INR] [COAG] AM 0400 Date of Encounter: 03/11/18 Time of Encounter: 14:34 - Discharge Diagnosis (1) Acute pulmonary embolism Priority: Primary Status: Acute Qualifiers: Pulmonary embolism type: other Acute cor pulmonale presence: without acute cor pulmonale Qualified Code(s): I26.99 - Other pulmonary embolism without acute cor pulmonale (2) Type 2 diabetes mellitus Priority: Secondary Status: Chronic Qualifiers: Diabetes mellitus intermediate insulin use: without dedicated 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 Keyes is a 78 year old female who presented with a fall and was found to have right DVT with pulmonary embolism. Patient underwent left heart catheterization prior to diagnosis of pulmonary embolism due to elevated troponin there was trivial nonobstructive coronary artery disease. The patient was on comfortable giving herself Lovenox injections and had a prolonged course while attempting to get her INR therapeutic. The patient has received 26 mg of Coumadin over 6 days and INR remains 1.2. The patient became deconditioned and was approved for ECF placement and will be discharged on Lovenox weight-based dosing twice a day until INR therapeutic. The patient needs daily INRs and daily dosing of Coumadin until INR therapeutic at which point Lovenox and be discontinued. This could be considered provoked DVT and therefore should continue anticoagulation for at least 3-6 months however at that point would recommend evaluation for risk versus benefit of long-term anticoagulation. Pt very eager for discharge in stable for discharge on 03/11/2018. Discharge discussed with: patient, nurse - Time Spent with Patient Total time spent providing and/or coordinating discharge services: Greater than 30 minutes - Discharge Medications Prescriptions: Enoxaparin [Lovenox] 115 mg SQ Q12HR 5 Days #10 syr Warfarin [Coumadin] 7.5 mg PO 1800 1 Days #1 tablet Home Medications: Cetirizine HCl [Zyrtec] 10 mg PO DAILY PRN 09/18/16 [History] Tramadol HCl [Ultram] 50 mg PO Q6H PRN 09/18/16 [History] metFORMIN [Glucophage] 500 mg PO BIDWM 09/18/16 [History] Albuterol Sulfate [Albuterol Inhaler] 2 puff IH Q4HR PRN 11/20/16 [History] Aspirin Enteric Coated [Aspirin EC] 81 mg PO DAILY 11/20/16 [History] hydroCHLOROthiazide [Hydrochlorothiazide] 12.5 mg PO DAILY #30 tablet 11/22/16 [ Rx] Losartan Potassium [Cozaar] 50 mg PO DAILY 09/12/17 [History] Meloxicam [Mobic] 15 mg PO DAILY 09/12/17 [History] Enoxaparin [Lovenox] 115 mg SQ Q12HR 5 Days #10 syr 03/11/18 [Rx] Warfarin [Coumadin] 7.5 mg PO 1800 1 Days #1 tablet 03/11/18 [Rx] Allergies/Adverse Reactions: 3 Allergy/AdvReac Type Severity Reaction Status Date / Time azithromycin Allergy Swelling Verified 09/18/16 18:51 [From Zithromax Z-Silvano] of Lip/Tongue/Throat cephalexin [From Keflex] Allergy Rash Verified 09/18/16 18:51 Date of admission: 03/02/18 07:45 Primary care physician: Nikunj Ash Jr, MD Consults: 03/03/18 16:35 Consult to [employer] Teacher [CONS] Routine Reason for SW Consult: ECF for rehab - Constitutional Vitals: Temp Pulse Resp BP Pulse Ox 97.5 F L 75 17 113/72 95 03/11/18 11:29 03/11/18 11:29 03/11/18 11:29 03/11/18 11:29 03/11/18 11:29 Exam: Constitutional: No acute distress, Alert Psych: AAO x 3 HEENT: NCAT, EOMI Neck: supple, no JVD Cardio: regular rate and rhythm, +s1s2 Resp: clear to ascultation bilaterally Abd: soft, non tender/non distended Extremities: Right lower extremity edema greater than left, mild ecchymosis on bilateral forearms Neuro: no focal deficits appreciated - Patient Status Disposition: Transfer SNF Condition: Good Functional capacity at discharge: uses cane/walker Overall status at discharge: patient is progressing back to baseline - Discharge Instructions Instructions: Pulmonary Embolism (DC) Follow Up With: Nikunj Ash Jr, MD [Primary Care Provider] - - Diet and Activity Activity: as per physical therapy Diet: advance to your usual diet
[2018-03-11 16:13] VITALS: BP 130/79
[2018-03-11] MEDS ORDERED: *HR* Enoxaparin 120 MG/0.8 ML SYRINGE SQ ONE (18:00)
[2018-03-11] MEDS ORDERED: *HR* Warfarin 7.5 MG TABLET PO ONE (18:00)
== END 2018-03-11 18:09 | DRG 564 ==
LOC: EMEROOARM 06:40 → 2ANU 06:40 → SUATTDRO 08:39 → 2ANU 09:22 → SUATTDRO 03-02 07:45
PROVIDERS: ADMIT Student in an Organized Health Care Education/Training Program; ATTEND Internal Medicine

== ENCOUNTER 2020-02-18 16:28 | Observation (INO) ==
[2020-02-18 17:14] LABS: Basophils # 0.1 K/mcL (0.0-0.2); Basophils % 0.7 %; Eosinophils # 0.2 K/mcL (0.0-0.6); Eosinophils % 2.5 %; Hematocrit 43.3 % (35.3-44.9); Hemoglobin 13.1 g/dL (11.5-15.4); Immature Granulocytes % 0.3 % (0-4); Lymphocytes # 1.6 K/mcL (0.6-4.6); Lymphocytes % 18.1 %; Mean Corpuscular HGB Conc 30.3 g/dL (31.6-35.5); Mean Corpuscular Hemoglobin 25.8 pg (28.0-33.3); Mean Corpuscular Volume 85.4 fL (83.0-100.0); Mean Platelet Volume 9.7 fL (9.4-12.4); Monocytes # 0.8 K/mcL (0.0-1.3); Monocytes % 8.8 %; Neutrophils # 6.2 K/mcL (1.6-8.9); Platelet Count 217 K/mcL (140-400); Red Blood Count 5.07 M/mcL (3.82-4.97); Red Cell Distribution Width 15.1 % (11.5-14.5); Segmented Neutrophils % 69.6 %; White Blood Count 8.9 K/mcL (4.3-11.1)
[2020-02-18 17:20] LABS: INR 2.9; Prothrombin Time 33.2 Seconds (9.4-12.1)
[2020-02-18 17:32] LABS: BUN/Creatinine Ratio 25 (6-26); Blood Urea Nitrogen 24 mg/dL (8-23); Calcium 9.6 mg/dL (8.6-10.3); Carbon Dioxide 30 mEq/L (23-29); Chloride 101 mEq/L (98-107); Glucose 121 mg/dL (70-105); Osmolality,Calculated 291 (280-300); Potassium 3.6 mEq/L (3.5-5.1); Sodium 138 mEq/L (136-145); eGFR For African Americans > 60 (> 60); eGFR For Non-African Americans 56 (> 60)
[2020-02-18] MEDS ORDERED: Naloxone 0.4 MG/ML INJ IVP PRN (18:11)
[2020-02-18] MEDS ORDERED: Acetaminophen 325 MG TABLET PO PRN (18:11)
[2020-02-18] MEDS ORDERED: *HR* HYDROcodone/Acet 5/325 mg TABLET PO PRN (18:11)
[2020-02-18] MEDS ORDERED: Dextrose Gel 15 GM/37.5 ML TUBE PO PRN ×2 (18:15)
[2020-02-18] MEDS ORDERED: *HR* Dextrose 50 % in Water (Vial) 50 ML VIAL IVP PRN (18:15)
[2020-02-18] MEDS ORDERED: D5% in Water 1,000 ML IVC PRN (18:15)
[2020-02-18] MEDS ORDERED: Warfarin perPT PO PRN (18:36)
[2020-02-18] MEDS ORDERED: *HR* Warfarin 5 MG TABLET PO ONE (19:51)
[2020-02-18] MEDS: *HR* Metformin 500 MG TABLET PO SCH (22:09)
[2020-02-18] MEDS: Insulin LISPRO 300 UNITS/3 ML VIAL SQ SCH (22:30)
[2020-02-19 04:53] LABS: BUN/Creatinine Ratio 27 (6-26); Blood Urea Nitrogen 28 mg/dL (8-23); Calcium 9.5 mg/dL (8.6-10.3); Carbon Dioxide 30 mEq/L (23-29); Chloride 103 mEq/L (98-107); Glucose 84 mg/dL (70-105); Magnesium 1.9 mg/dL (1.6-2.6); Osmolality,Calculated 295 (280-300); Phosphorous 4.2 mg/dL (2.7-4.5); Potassium 3.9 mEq/L (3.5-5.1); Sodium 140 mEq/L (136-145); eGFR For African Americans > 60 (> 60); eGFR For Non-African Americans 52 (> 60)
[2020-02-19 04:58] LABS: INR 3.2; Prothrombin Time 36.4 Seconds (9.4-12.1)
[2020-02-19] MEDS: *HR* Metformin 500 MG TABLET PO SCH ×2 (07:44→17:19)
[2020-02-19] MEDS: Insulin LISPRO 300 UNITS/3 ML VIAL SQ SCH ×3 (07:44→17:20)
[2020-02-19] MEDS ORDERED: Loratadine 10 MG TABLET PO PRN (11:01)
[2020-02-19] MEDS: hydroCHLOROthiazide 25 MG TABLET PO SCH (11:59)
[2020-02-19] MEDS ORDERED: *HR* Warfarin 5 MG TABLET PO ONE (18:00)
[2020-02-19] MEDS ORDERED: *HR* Warfarin 10 MG TABLET PO SCH (18:00)
[2020-02-20 03:21] LABS: INR 3.1; Prothrombin Time 35.8 Seconds (9.4-12.1)
[2020-02-20] MEDS: Insulin LISPRO 300 UNITS/3 ML VIAL SQ SCH ×3 (07:48→16:23)
[2020-02-20] MEDS: Cyanocobalamin (B-12) 1,000 MCG TABLET PO SCH (07:57)
[2020-02-20] MEDS: *HR* Metformin 500 MG TABLET PO SCH ×2 (07:57→17:02)
[2020-02-20] MEDS: hydroCHLOROthiazide 25 MG TABLET PO SCH (07:58)
[2020-02-20] MEDS ORDERED: *HR* Warfarin 10 MG TABLET PO ONE (18:00)
[2020-02-21 05:03] LABS: INR 3.1
[2020-02-21] MEDS: Insulin LISPRO 300 UNITS/3 ML VIAL SQ SCH ×3 (08:31→16:22)
[2020-02-21] MEDS: *HR* Metformin 500 MG TABLET PO SCH ×2 (08:36→17:50)
[2020-02-21] MEDS: hydroCHLOROthiazide 25 MG TABLET PO SCH (08:36)
[2020-02-21] MEDS: Cyanocobalamin (B-12) 1,000 MCG TABLET PO SCH (08:37)
[2020-02-21] MEDS ORDERED: *HR* Warfarin 5 MG TABLET PO ONE (18:00)
[2020-02-22 04:54] LABS: INR 2.5; Prothrombin Time 28.5 Seconds (9.4-12.1)
[2020-02-22] MEDS: Insulin LISPRO 300 UNITS/3 ML VIAL SQ SCH ×3 (07:55→16:33)
[2020-02-22] MEDS: Cyanocobalamin (B-12) 1,000 MCG TABLET PO SCH (08:18)
[2020-02-22] MEDS: *HR* Metformin 500 MG TABLET PO SCH ×2 (08:18→16:33)
[2020-02-22] MEDS: hydroCHLOROthiazide 25 MG TABLET PO SCH (08:18)
[2020-02-22] MEDS ORDERED: *HR* Warfarin 10 MG TABLET PO ONE (18:00)
[2020-02-23] MEDS: Insulin LISPRO 300 UNITS/3 ML VIAL SQ SCH ×2 (07:31→10:28)
[2020-02-23 07:32] LABS: INR 2.1; Prothrombin Time 24.2 Seconds (9.4-12.1)
[2020-02-23] MEDS: *HR* Metformin 500 MG TABLET PO SCH (09:10)
[2020-02-23] MEDS: hydroCHLOROthiazide 25 MG TABLET PO SCH (09:10)
[2020-02-23] MEDS: Cyanocobalamin (B-12) 1,000 MCG TABLET PO SCH (09:10)
[2020-02-23 10:11] VITALS: BP 137/79
[2020-02-23] MEDS ORDERED: *HR* Warfarin 10 MG TABLET PO ONE (18:00)
== END 2020-02-23 15:11 ==
LOC: 3ANU 16:28 → EMEROOARM 16:28 → SUATTDRO 19:16 → 3ANU 20:46
PROVIDERS: ADMIT Internal Medicine; ATTEND Pharmacist

== ENCOUNTER 2020-06-05 07:34 | Observation (INO) ==
[2020-06-05] MEDS ORDERED: Clindamycin 900 MG/50 ML 900 MG/50 ML IV.SOLN IVPB ONE (07:51)
[2020-06-05] MEDS ORDERED: Ringers Solution, Lactated 1,000 ML IVC SCH ×2 (08:00→12:43)
[2020-06-05] MEDS ORDERED: Ondansetron 4 MG/2 ML VIAL ONE (08:55)
[2020-06-05] MEDS ORDERED: Lidocaine -MPF 2% 2 ML VIAL ONE (08:55)
[2020-06-05] MEDS ORDERED: *HR* FentaNYL (PF) 100 MCG/2 ML VIAL ONE (08:55)
[2020-06-05] MEDS ORDERED: *HR* Propofol 200 MG/20 ML VIAL IVP ONE (08:55)
[2020-06-05] MEDS ORDERED: Dexamethasone 4 MG/ML VIAL ONE (08:55)
[2020-06-05] MEDS ORDERED: *HR* Midazolam HCl 2 MG/2 ML VIAL ONE (08:55)
[2020-06-05] MEDS ORDERED: *HR* Succinylcholine 200 MG/10 ML VIAL IVP ONE (08:55)
[2020-06-05] MEDS ORDERED: Ropivacaine/PF 0.5% 30 ML VIAL ONE (08:56)
[2020-06-05] MEDS ORDERED: ROPIVACAINE/PF/NS 0.25% 1 EACH SYRINGE INTRAART ONE (08:56)
[2020-06-05] MEDS ORDERED: Famotidine 20 MG/2 ML VIAL IVP ONE (09:05)
[2020-06-05] MEDS ORDERED: Acetaminophen IV 1,000 MG/100 ML BAG IVPB ONE (09:05)
[2020-06-05] MEDS ORDERED: Ethanol\\Acetic Acid\\Na Ace\\Ben 1,000 ML IRRIG.SOLN IR ONE (09:23)
[2020-06-05] MEDS ORDERED: Vancomycin 1,000 MG VIAL ONE (09:24)
[2020-06-05] MEDS ORDERED: Tranexamic Acid 1,000 MG/10 ML VIAL ONE (10:04)
[2020-06-05] MEDS ORDERED: Povidone-Iodine 45 ML, Sodium Chloride IRRigation 1,000 ML IR ONE (10:05)
[2020-06-05] MEDS ORDERED: TOTAL JOINT MIXTURE (100ML) INTRAART ONE (10:05)
[2020-06-05] MEDS ORDERED: *HR* HYDROMORPHONE 2 MG/ML VIAL ONE (10:36)
[2020-06-05] MEDS ORDERED: *HR* FentaNYL (PF) 100 MCG/2 ML VIAL IVP PRN (11:48)
[2020-06-05] MEDS ORDERED: Ondansetron 4 MG/2 ML VIAL IVP ONE (11:50)
[2020-06-05] MEDS ORDERED: *HR* HYDROmorphone (PF) 1 MG/ML SYRINGE ONE (11:57)
[2020-06-05] MEDS: *HR* HYDROmorphone PF 0.5 MG/0.5 ML SYRINGE IVP PRN ×2 (11:59→12:11)
[2020-06-05 12:20] LABS: Hemoglobin 11.8 g/dL (11.5-15.4)
[2020-06-05] MEDS ORDERED: Naloxone 0.4 MG/ML INJ IVP PRN (12:43)
[2020-06-05] MEDS ORDERED: Ondansetron 4 MG/2 ML VIAL IVP PRN (12:43)
[2020-06-05] MEDS ORDERED: MOM Conc 10 ML UD.LIQ PO PRN (12:43)
[2020-06-05] MEDS ORDERED: *HR* Dextrose 50 % in Water (Vial) 50 ML VIAL IVP PRN (12:43)
[2020-06-05] MEDS ORDERED: *HR* Promethazine 25 MG/ML VIAL IM PRN (12:43)
[2020-06-05] MEDS ORDERED: Dextrose Gel 15 GM/37.5 ML TUBE PO PRN ×2 (12:43)
[2020-06-05] MEDS ORDERED: Loratadine 10 MG TABLET PO PRN (12:43)
[2020-06-05] MEDS ORDERED: Sennosides 8.6 MG TABLET PO PRN (12:43)
[2020-06-05] MEDS ORDERED: D5% in Water 1,000 ML IVC PRN (12:43)
[2020-06-05] MEDS: Cyanocobalamin (B-12) 1,000 MCG TABLET PO SCH (14:27)
[2020-06-05] MEDS: Multivit/Ca/Min/Fe/FA 1 TAB TABLET PO SCH (14:27)
[2020-06-05] MEDS: Ascorbic Acid 500 MG TABLET PO SCH ×2 (14:27→19:26)
[2020-06-05] MEDS: hydroCHLOROthiazide 25 MG TABLET PO SCH (14:27)
[2020-06-05] MEDS: Saline Nasal Spray 44 ML BOTTLE NS SCH ×2 (19:26→20:49)
[2020-06-05] MEDS: *HR* Metformin 500 MG TABLET PO SCH (19:26)
[2020-06-05] MEDS: Insulin LISPRO 300 UNITS/3 ML VIAL SQ SCH ×2 (19:26→20:46)
[2020-06-05] MEDS: *HR* Warfarin 5 MG TABLET PO SCH (19:47)
[2020-06-05] MEDS: Clindamycin 900 MG/50 ML 900 MG/50 ML IV.SOLN IVPB SCH (19:47)
[2020-06-06] MEDS: HYDROcodone BIT/Homatropine 5 MG TABLET PO PRN ×2 (02:30→08:05)
[2020-06-06] MEDS: Clindamycin 900 MG/50 ML 900 MG/50 ML IV.SOLN IVPB SCH (02:30)
[2020-06-06 02:51] LABS: Basophils % 0.2 %; Hematocrit 35.3 % (35.3-44.9); Hemoglobin 10.7 g/dL (11.5-15.4); Immature Granulocytes % 0.3 % (0-4); Lymphocytes # 1.1 K/mcL (0.6-4.6); Lymphocytes % 9.8 %; Mean Corpuscular HGB Conc 30.3 g/dL (31.6-35.5); Mean Corpuscular Volume 85.7 fL (83.0-100.0); Mean Platelet Volume 10.4 fL (9.4-12.4); Monocytes # 0.7 K/mcL (0.0-1.3); Platelet Count 197 K/mcL (140-400); Red Blood Count 4.12 M/mcL (3.82-4.97); Segmented Neutrophils % 83.7 %
[2020-06-06 02:55] LABS: Neutrophils # 9.4 K/mcL (1.6-8.9); White Blood Count 11.2 K/mcL (4.3-11.1)
[2020-06-06 03:07] LABS: INR 1.3; Prothrombin Time 14.7 Seconds (9.4-12.1)
[2020-06-06 03:11] LABS: BUN/Creatinine Ratio 26 (6-26); Blood Urea Nitrogen 24 mg/dL (8-23); Calcium 8.6 mg/dL (8.6-10.3); Carbon Dioxide 25 mEq/L (23-29); Chloride 104 mEq/L (98-107); Glucose 158 mg/dL (70-105); Osmolality,Calculated 291 (280-300); Potassium 4.4 mEq/L (3.5-5.1); Sodium 137 mEq/L (136-145); eGFR For African Americans > 60 (> 60); eGFR For Non-African Americans 59 (> 60)
[2020-06-06] MEDS: Insulin LISPRO 300 UNITS/3 ML VIAL SQ SCH ×4 (07:42→20:33)
[2020-06-06] MEDS: Aspirin Enteric Coated 81 MG Tablet PO SCH (08:05)
[2020-06-06] MEDS: *HR* Metformin 500 MG TABLET PO SCH ×2 (08:05→17:51)
[2020-06-06] MEDS: Multivit/Ca/Min/Fe/FA 1 TAB TABLET PO SCH (08:05)
[2020-06-06] MEDS: Ascorbic Acid 500 MG TABLET PO SCH ×2 (08:05→17:51)
[2020-06-06] MEDS: hydroCHLOROthiazide 25 MG TABLET PO SCH (08:05)
[2020-06-06] MEDS: Cyanocobalamin (B-12) 1,000 MCG TABLET PO SCH (08:05)
[2020-06-06] MEDS: Saline Nasal Spray 44 ML BOTTLE NS SCH ×3 (08:06→17:52)
[2020-06-06] MEDS: *HR* Warfarin 5 MG TABLET PO SCH (17:51)
[2020-06-06] MEDS: *HR* OxyCODONE Immed Rel 5 MG TABLET PO PRN (20:21)
[2020-06-07 05:10] LABS: Basophils % 0.4 %; Eosinophils # 0.1 K/mcL (0.0-0.6); Eosinophils % 0.9 %; Hemoglobin 10.3 g/dL (11.5-15.4); Immature Granulocytes % 0.2 % (0-4); Lymphocytes # 2.2 K/mcL (0.6-4.6); Lymphocytes % 25.5 %; Mean Corpuscular HGB Conc 30.3 g/dL (31.6-35.5); Mean Corpuscular Hemoglobin 25.9 pg (28.0-33.3); Mean Corpuscular Volume 85.6 fL (83.0-100.0); Mean Platelet Volume 10.6 fL (9.4-12.4); Monocytes # 0.8 K/mcL (0.0-1.3); Monocytes % 9.9 %; Neutrophils # 5.4 K/mcL (1.6-8.9); Platelet Count 196 K/mcL (140-400); Red Blood Count 3.97 M/mcL (3.82-4.97); Red Cell Distribution Width 15.7 % (11.5-14.5); Segmented Neutrophils % 63.1 %; White Blood Count 8.5 K/mcL (4.3-11.1)
[2020-06-07 05:15] LABS: INR 1.3
[2020-06-07 05:26] LABS: BUN/Creatinine Ratio 35 (6-26); Blood Urea Nitrogen 35 mg/dL (8-23); Calcium 8.5 mg/dL (8.6-10.3); Carbon Dioxide 27 mEq/L (23-29); Chloride 104 mEq/L (98-107); Glucose 128 mg/dL (70-105); Osmolality,Calculated 296 (280-300); Potassium 3.8 mEq/L (3.5-5.1); Sodium 138 mEq/L (136-145); eGFR For African Americans > 60 (> 60); eGFR For Non-African Americans 53 (> 60)
[2020-06-07] MEDS: Cyanocobalamin (B-12) 1,000 MCG TABLET PO SCH (07:39)
[2020-06-07] MEDS: Multivit/Ca/Min/Fe/FA 1 TAB TABLET PO SCH (07:39)
[2020-06-07] MEDS: Aspirin Enteric Coated 81 MG Tablet PO SCH (07:39)
[2020-06-07] MEDS: Ascorbic Acid 500 MG TABLET PO SCH ×2 (07:40→17:51)
[2020-06-07] MEDS: hydroCHLOROthiazide 25 MG TABLET PO SCH (07:40)
[2020-06-07] MEDS: *HR* Metformin 500 MG TABLET PO SCH ×2 (07:41→17:51)
[2020-06-07] MEDS: *HR* OxyCODONE Immed Rel 5 MG TABLET PO PRN (07:41)
[2020-06-07] MEDS: Insulin LISPRO 300 UNITS/3 ML VIAL SQ SCH ×3 (07:45→17:53)
[2020-06-07 13:21] VITALS: BP 134/68
[2020-06-07 15:56] LABS: Adenovirus Not Detected (Not Detect); Coronavirus 229E Not Detected (Not Detect); Coronavirus HKU1 Not Detected (Not Detect); Coronavirus NL63 Not Detected (Not Detect); Coronavirus OC43 Not Detected (Not Detect); Human Metapneumovirus Not Detected (Not Detect); Human Rhinovirus/Enterovirus Not Detected (Not Detect); Influenza A Subtype 2009 H1 Not Detected (Not Detect); SARS-CoV-2 Not Detected (Not Detect)
[2020-06-07 15:57] LABS: Bordetella Pertussis Not Detected (Not Detect); Chlamydophila pneumoniae Not Detected (Not Detect); Influenza B Not Detected (Not Detect); Mycoplasma pneumoniae Not Detected (Not Detect); Parainfluenza Virus 1 Not Detected (Not Detect); Parainfluenza Virus 2 Not Detected (Not Detect); Parainfluenza Virus 3 Not Detected (Not Detect); Parainfluenza Virus 4 Not Detected (Not Detect); Respiratory Syncytial Virus Not Detected (Not Detect)
[2020-06-07] MEDS: *HR* Warfarin 5 MG TABLET PO SCH (17:51)
== END 2020-06-07 18:23 ==
LOC: SAMDAY 07:34 → 3NENU 07:34
PROVIDERS: ADMIT Orthopaedic Surgery; ATTEND Orthopaedic Surgery

== ENCOUNTER 2020-12-04 16:57 | Observation (INO) ==
[2020-12-04] MEDS ORDERED: *HR* HYDROmorphone (PF) 1 MG/ML SYRINGE IVP ONE (17:36)
[2020-12-04 18:06] LABS: Basophils # 0.1 K/mcL (0.0-0.2); Basophils % 0.5 %; Eosinophils # 0.1 K/mcL (0.0-0.6); Eosinophils % 0.9 %; Hematocrit 40.7 % (35.3-44.9); Hemoglobin 12.4 g/dL (11.5-15.4); Immature Granulocytes % 0.3 % (0-4); Lymphocytes # 1.4 K/mcL (0.6-4.6); Lymphocytes % 11.5 %; Mean Corpuscular HGB Conc 30.5 g/dL (31.6-35.5); Mean Corpuscular Hemoglobin 26.1 pg (28.0-33.3); Mean Corpuscular Volume 85.5 fL (83.0-100.0); Mean Platelet Volume 10.3 fL (9.4-12.4); Monocytes # 0.5 K/mcL (0.0-1.3); Monocytes % 4.5 %; Neutrophils # 9.7 K/mcL (1.6-8.9); Platelet Count 275 K/mcL (140-400); Red Blood Count 4.76 M/mcL (3.82-4.97); Red Cell Distribution Width 16.9 % (11.5-14.5); Segmented Neutrophils % 82.3 %; White Blood Count 11.8 K/mcL (4.3-11.1)
[2020-12-04 18:30] LABS: Alanine Aminotransferase 10 Units/L (7-52); Albumin 3.8 g/dL (3.5-5.7); Alkaline Phosphatase 122 Units/L (34-104); Aspartate Amino Transferase 15 Units/L (13-39); BUN/Creatinine Ratio 23 (6-26); Bilirubin,Total 0.5 mg/dL (0.3-1.0); Blood Urea Nitrogen 24 mg/dL (8-23); C-Reactive Protein 7 mg/L (Less than 10); Calcium 9.3 mg/dL (8.6-10.3); Carbon Dioxide 23 mEq/L (23-29); Chloride 104 mEq/L (98-107); Globulin 3.8 g/dL (2.4-3.5); Glucose 271 mg/dL (70-105); Osmolality,Calculated 300 (280-300); Potassium 3.6 mEq/L (3.5-5.1); Sodium 138 mEq/L (136-145); Total Protein 7.6 g/dL (6.4-8.9); eGFR For African Americans > 60 (> 60); eGFR For Non-African Americans 50 (> 60)
[2020-12-04 20:04] LABS: INR 3.3; Prothrombin Time 36.8 Seconds (9.4-12.1)
[2020-12-04 20:07] LABS: Activated Partial Thrombo Time 43.2 Seconds (26.0-36.0)
[2020-12-04] MEDS ORDERED: Naloxone 0.4 MG/ML INJ IVP PRN (21:32)
[2020-12-04] MEDS ORDERED: Acetaminophen 325 MG TABLET PO PRN (21:32)
[2020-12-04] MEDS ORDERED: D5% in Water 1,000 ML IVC PRN (21:33)
[2020-12-04] MEDS ORDERED: *HR* Dextrose 50 % in Water (Vial) 50 ML VIAL IVP PRN (21:33)
[2020-12-04] MEDS ORDERED: Dextrose Gel 15 GM/37.5 ML TUBE PO PRN ×2 (21:33)
[2020-12-04] MEDS: Insulin LISPRO 300 UNITS/3 ML VIAL SUBQ SCH ×2 (23:30→23:57)
[2020-12-04] MEDS ORDERED: Ondansetron 4 MG/2 ML VIAL IVP PRN (23:45)
[2020-12-04] MEDS ORDERED: *HR* HYDROmorphone 2 MG TABLET PO PRN (23:48)
[2020-12-05 00:57] LABS: Hematocrit 36.4 % (35.3-44.9); Mean Corpuscular HGB Conc 30.2 g/dL (31.6-35.5); Mean Corpuscular Hemoglobin 25.8 pg (28.0-33.3); Mean Corpuscular Volume 85.4 fL (83.0-100.0); Mean Platelet Volume 9.8 fL (9.4-12.4); Platelet Count 234 K/mcL (140-400); Red Blood Count 4.26 M/mcL (3.82-4.97); Red Cell Distribution Width 16.9 % (11.5-14.5); White Blood Count 9.7 K/mcL (4.3-11.1)
[2020-12-05 01:06] LABS: INR 3.3; Prothrombin Time 37.1 Seconds (9.4-12.1)
[2020-12-05 01:14] LABS: BUN/Creatinine Ratio 25 (6-26); Blood Urea Nitrogen 24 mg/dL (8-23); Calcium 8.9 mg/dL (8.6-10.3); Carbon Dioxide 26 mEq/L (23-29); Chloride 103 mEq/L (98-107); Estimated Average Glucose 140 mg/dl; Glucose 244 mg/dL (70-105); Hemoglobin A1C 6.5 %; Osmolality,Calculated 294 (280-300); Potassium 3.6 mEq/L (3.5-5.1); Sodium 136 mEq/L (136-145); eGFR For African Americans > 60 (> 60); eGFR For Non-African Americans 56 (> 60)
[2020-12-05 05:25] LABS: Bacteria,Urine Few per hpf (None-Few); Bilirubin,Urine Negative (Negative); Blood,Urine Trace (Negative); Clarity,Urine Turbid (Clear); Color,Urine Yellow (Yellow); Glucose,Urine (UA) 70 mg/dL (Normal); Hyaline Casts,Urine Few per lpf (None Seen); Ketones,Urine Negative (Negative); Leukocyte Esterase,Urine Negative (Negative); Mucus,Urine Few per lpf (None-Few); Nitrite,Urine Negative (Negative); PH,Urine 5.5 pH Units (5.0-8.0); Protein,Urine Trace mg/dL (Neg-Trace); Specific Gravity,Urine 1.023 (1.010-1.025); Squamous Epithelial Cell,Urine Few per hpf (None-Few); Urobilinogen,Urine Normal (Normal)
[2020-12-05] MEDS: Insulin LISPRO 300 UNITS/3 ML VIAL SUBQ SCH ×4 (07:21→19:32)
[2020-12-05] MEDS ORDERED: methylPREDNISolone 4 MG TABLET PO ONE (12:57)
[2020-12-05] MEDS ORDERED: Warfarin perPT PO PRN (18:00)
[2020-12-05] MEDS ORDERED: *HR* Warfarin 5 MG TABLET PO ONE (18:00)
[2020-12-06 06:10] LABS: INR 2.3; Prothrombin Time 25.5 Seconds (9.4-12.1)
[2020-12-06] MEDS: Insulin LISPRO 300 UNITS/3 ML VIAL SUBQ SCH ×4 (07:30→20:28)
[2020-12-06] MEDS: hydroCHLOROthiazide 25 MG TABLET PO SCH (07:42)
[2020-12-06] MEDS ORDERED: *HR* Warfarin 10 MG TABLET PO ONE (18:00)
[2020-12-07 04:45] LABS: INR 1.7
[2020-12-07] MEDS: Insulin LISPRO 300 UNITS/3 ML VIAL SUBQ SCH ×4 (07:46→20:41)
[2020-12-07] MEDS: hydroCHLOROthiazide 25 MG TABLET PO SCH (07:55)
[2020-12-07] MEDS: methylPREDNISolone 4 MG TABLET PO SCH (13:30)
[2020-12-08] MEDS: methylPREDNISolone 4 MG TABLET PO SCH ×2 (09:33→17:35)
[2020-12-08] MEDS: hydroCHLOROthiazide 25 MG TABLET PO SCH (09:34)
[2020-12-08] MEDS: Insulin LISPRO 300 UNITS/3 ML VIAL SUBQ SCH ×4 (09:34→19:42)
[2020-12-08] MEDS ORDERED: Sennosides 8.6 MG TABLET PO PRN (15:27)
[2020-12-08] MEDS ORDERED: Melatonin 3 MG TABLET PO PRN (20:28)
[2020-12-09] MEDS: Insulin LISPRO 300 UNITS/3 ML VIAL SUBQ SCH ×4 (08:00→20:27)
[2020-12-09] MEDS: methylPREDNISolone 4 MG TABLET PO SCH (08:06)
[2020-12-09] MEDS: hydroCHLOROthiazide 25 MG TABLET PO SCH (08:07)
[2020-12-10] MEDS: Insulin LISPRO 300 UNITS/3 ML VIAL SUBQ SCH ×4 (08:48→22:08)
[2020-12-10] MEDS: methylPREDNISolone 4 MG TABLET PO SCH (08:53)
[2020-12-10] MEDS: hydroCHLOROthiazide 25 MG TABLET PO SCH (08:53)
[2020-12-11] MEDS: methylPREDNISolone 4 MG TABLET PO SCH (08:40)
[2020-12-11] MEDS: hydroCHLOROthiazide 25 MG TABLET PO SCH (08:40)
[2020-12-11] MEDS: Insulin LISPRO 300 UNITS/3 ML VIAL SUBQ SCH (08:41)
[2020-12-11 11:38] LABS: Adenovirus Not Detected (Not Detect); Bordetella Pertussis Not Detected (Not Detect); Chlamydophila pneumoniae Not Detected (Not Detect); Coronavirus 229E Not Detected (Not Detect); Coronavirus HKU1 Not Detected (Not Detect); Coronavirus NL63 Not Detected (Not Detect); Coronavirus OC43 Not Detected (Not Detect); Human Metapneumovirus Not Detected (Not Detect); Human Rhinovirus/Enterovirus Not Detected (Not Detect); Influenza A Subtype 2009 H1 Not Detected (Not Detect); Influenza B Not Detected (Not Detect); Mycoplasma pneumoniae Not Detected (Not Detect); Parainfluenza Virus 1 Not Detected (Not Detect); Parainfluenza Virus 2 Not Detected (Not Detect); Parainfluenza Virus 3 Not Detected (Not Detect); Parainfluenza Virus 4 Not Detected (Not Detect); Respiratory Syncytial Virus Not Detected (Not Detect); SARS-CoV-2 Not Detected (Not Detect)
[2020-12-11 11:55] VITALS: BP 111/69
== END 2020-12-11 13:07 ==
LOC: EMEROOARM 16:57 → 3BNU 16:57 → SUATTDRO 20:52 → 3BNU 22:18
PROVIDERS: ADMIT Internal Medicine; ATTEND Internal Medicine

== ENCOUNTER 2022-01-21 06:16 | Inpatient (IN) ==
[2022-01-21] MEDS ORDERED: Famotidine 20 MG/2 ML VIAL IVP ONE ×2 (06:28→07:00)
[2022-01-21] MEDS ORDERED: Acetaminophen IV 1,000 MG/100 ML BAG IVPB ONE ×2 (06:29→07:00)
[2022-01-21] MEDS ORDERED: CeFAZolin Syr 3,000MG/30 ML 3,000 MG/30 ML SYRINGE IVPB ONE (06:29)
[2022-01-21] MEDS ORDERED: Ringers Solution, Lactated 1,000 ML IVC SCH ×2 (06:30→15:44)
[2022-01-21] MEDS ORDERED: Ethanol\\Acetic Acid\\Na Ace\\Ben 1,000 ML IRRIG.SOLN IR ONE (06:44)
[2022-01-21] MEDS ORDERED: Tobramycin Sulf (Sterile) 1.2 GM VIAL ONE (06:45)
[2022-01-21] MEDS ORDERED: Vancomycin 1,000 MG VIAL ONE (06:45)
[2022-01-21] MEDS ORDERED: Lidocaine HCL 4 ML Topical Solution (Laryng-O-Jet Kit Sterile Pak) TP ONE (06:49)
[2022-01-21] MEDS ORDERED: *HR* Succinylcholine 200 MG/10 ML VIAL IVP ONE ×2 (06:49→06:54)
[2022-01-21] MEDS ORDERED: Lidocaine -MPF 2% 5 ML VIAL ONE (06:49)
[2022-01-21] MEDS ORDERED: *HR* FentaNYL (PF) 100 MCG/2 ML VIAL ONE (06:49)
[2022-01-21] MEDS ORDERED: *HR* Propofol 200 MG/20 ML VIAL IVP ONE (06:49)
[2022-01-21] MEDS ORDERED: Ondansetron 4 MG/2 ML VIAL ONE (06:49)
[2022-01-21] MEDS ORDERED: Tranexamic Acid 1,000 MG/10 ML VIAL ONE ×2 (06:50→10:17)
[2022-01-21] MEDS ORDERED: Ropivacaine/PF 0.5% 30 ML VIAL ONE (07:03)
[2022-01-21] MEDS ORDERED: ROPIVACAINE/PF/NS 0.25% 1 EACH SYRINGE INTRAART ONE (07:04)
[2022-01-21] MEDS ORDERED: Gentamicin 440 MG in 0.9 % Sodium Chloride 100 ML IVPB ONE (07:15)
[2022-01-21] MEDS ORDERED: TOTAL JOINT MIXTURE (100ML) INTRAART ONE (07:30)
[2022-01-21] MEDS ORDERED: Povidone-Iodine 45 ML, Sodium Chloride IRRigation 1,000 ML IR ONE (07:30)
[2022-01-21] MEDS ORDERED: EPHEDrine 50 MG/ML VIAL ONE (08:35)
[2022-01-21] MEDS ORDERED: *HR* OxyCODONE Immed Rel 5 MG TABLET PO PRN ×2 (10:56→15:44)
[2022-01-21] MEDS ORDERED: Ondansetron 4 MG/2 ML VIAL IVP PRN ×2 (10:56→15:44)
[2022-01-21] MEDS ORDERED: *HR* Promethazine 25 MG/ML VIAL IM PRN (15:44)
[2022-01-21] MEDS ORDERED: MOM Conc 10 ML UD.LIQ PO PRN (15:44)
[2022-01-21] MEDS ORDERED: Naloxone 0.4 MG/ML INJ IVP PRN (15:44)
[2022-01-21] MEDS ORDERED: Sennosides 8.6 MG TABLET PO PRN (15:44)
[2022-01-21] MEDS ORDERED: Loratadine 10 MG TABLET PO PRN (15:55)
[2022-01-21] MEDS ORDERED: CeFAZolin 2 GM/120 ML BAG IVPB SCH (16:00)
[2022-01-21] MEDS: Ascorbic Acid 500 MG TABLET PO SCH (17:18)
[2022-01-21] MEDS: *HR* Metformin 500 MG TABLET PO SCH (17:18)
[2022-01-21] MEDS: Ketorolac 30 MG/ML VIAL IVP SCH ×2 (17:20→21:19)
[2022-01-21] MEDS: CeFAZolin 2 GM/120 ML BAG IVPB SCH (18:51)
[2022-01-22] MEDS: CeFAZolin 2 GM/120 ML BAG IVPB SCH ×3 (02:10→17:20)
[2022-01-22] MEDS: Ketorolac 30 MG/ML VIAL IVP SCH ×4 (05:07→22:34)
[2022-01-22 05:12] LABS: Basophils % 0.3 %; Eosinophils % 0.1 %; Hematocrit 36.1 % (35.3-44.9); Hemoglobin 11.3 g/dL (11.5-15.4); Immature Granulocytes % 0.2 % (0-4); Lymphocytes # 1.2 K/mcL (0.6-4.6); Lymphocytes % 10.4 %; Mean Corpuscular HGB Conc 31.3 g/dL (31.6-35.5); Mean Corpuscular Hemoglobin 26.7 pg (28.0-33.3); Mean Corpuscular Volume 85.3 fL (83.0-100.0); Mean Platelet Volume 10.4 fL (9.4-12.4); Monocytes # 0.9 K/mcL (0.0-1.3); Monocytes % 7.6 %; Neutrophils # 9.6 K/mcL (1.6-8.9); Platelet Count 184 K/mcL (140-400); Red Blood Count 4.23 M/mcL (3.82-4.97); Red Cell Distribution Width 14.3 % (11.5-14.5); Segmented Neutrophils % 81.4 %; White Blood Count 11.8 K/mcL (4.3-11.1)
[2022-01-22 05:34] LABS: Calcium 8.7 mg/dL (8.6-10.3); Potassium 4.1 mEq/L (3.5-5.1)
[2022-01-22] MEDS: *HR* Metformin 500 MG TABLET PO SCH ×2 (09:07→17:20)
[2022-01-22] MEDS: hydroCHLOROthiazide 25 MG TABLET PO SCH (09:07)
[2022-01-22] MEDS: Multivit/Ca/Min/Fe/FA 1 TAB TABLET PO SCH (09:08)
[2022-01-22] MEDS: Ascorbic Acid 500 MG TABLET PO SCH ×2 (09:08→17:20)
[2022-01-22] MEDS: Aspirin Enteric Coated 81 MG Tablet PO SCH ×2 (12:18→20:29)
[2022-01-23 01:42] LABS: Basophils % 0.4 %; Eosinophils # 0.3 K/mcL (0.0-0.6); Eosinophils % 3.2 %; Hematocrit 34.4 % (35.3-44.9); Hemoglobin 10.7 g/dL (11.5-15.4); Immature Granulocytes % 0.2 % (0-4); Lymphocytes # 1.4 K/mcL (0.6-4.6); Lymphocytes % 14.5 %; Mean Corpuscular HGB Conc 31.1 g/dL (31.6-35.5); Mean Corpuscular Hemoglobin 26.8 pg (28.0-33.3); Mean Corpuscular Volume 86.2 fL (83.0-100.0); Mean Platelet Volume 9.8 fL (9.4-12.4); Monocytes # 0.8 K/mcL (0.0-1.3); Monocytes % 8.8 %; Neutrophils # 6.8 K/mcL (1.6-8.9); Platelet Count 147 K/mcL (140-400); Red Blood Count 3.99 M/mcL (3.82-4.97); Red Cell Distribution Width 14.4 % (11.5-14.5); Segmented Neutrophils % 72.9 %; White Blood Count 9.4 K/mcL (4.3-11.1)
[2022-01-23] MEDS: CeFAZolin 2 GM/120 ML BAG IVPB SCH ×3 (01:49→17:01)
[2022-01-23 02:02] LABS: BUN/Creatinine Ratio 25 (6-26); Blood Urea Nitrogen 26 mg/dL (8-23); Calcium 8.5 mg/dL (8.6-10.3); Carbon Dioxide 27 mEq/L (23-29); Chloride 103 mEq/L (98-107); Glucose 122 mg/dL (70-105); Osmolality,Calculated 288 (280-300); Sodium 136 mEq/L (136-145); eGFR For African Americans > 60 (> 60); eGFR For Non-African Americans 50 (> 60)
[2022-01-23] MEDS: Ketorolac 30 MG/ML VIAL IVP SCH ×4 (04:03→22:04)
[2022-01-23] MEDS: Ascorbic Acid 500 MG TABLET PO SCH ×3 (09:07→17:01)
[2022-01-23] MEDS: Multivit/Ca/Min/Fe/FA 1 TAB TABLET PO SCH (09:12)
[2022-01-23] MEDS: hydroCHLOROthiazide 25 MG TABLET PO SCH (09:13)
[2022-01-23] MEDS: *HR* Metformin 500 MG TABLET PO SCH ×2 (09:13→16:45)
[2022-01-23] MEDS: *HR* Rivaroxaban 10 MG TABLET PO SCH (16:44)
[2022-01-24] MEDS: CeFAZolin 2 GM/120 ML BAG IVPB SCH ×3 (01:06→18:03)
[2022-01-24] MEDS: Ketorolac 30 MG/ML VIAL IVP SCH ×4 (03:57→22:39)
[2022-01-24] MEDS: Ascorbic Acid 500 MG TABLET PO SCH ×2 (08:32→16:37)
[2022-01-24] MEDS: *HR* Metformin 500 MG TABLET PO SCH ×2 (08:32→16:37)
[2022-01-24] MEDS: Multivit/Ca/Min/Fe/FA 1 TAB TABLET PO SCH (08:33)
[2022-01-24] MEDS: hydroCHLOROthiazide 25 MG TABLET PO SCH (08:33)
[2022-01-24] MEDS: *HR* Rivaroxaban 10 MG TABLET PO SCH (16:37)
[2022-01-25] MEDS: CeFAZolin 2 GM/120 ML BAG IVPB SCH ×2 (02:11→11:05)
[2022-01-25 04:05] VITALS: O2SAT 95
[2022-01-25] MEDS: Ketorolac 30 MG/ML VIAL IVP SCH ×2 (04:05→10:15)
[2022-01-25 06:36] VITALS: BP 148/87; PULSE 86; TEMP 98.7
[2022-01-25] MEDS: Ascorbic Acid 500 MG TABLET PO SCH (08:38)
[2022-01-25] MEDS: *HR* Metformin 500 MG TABLET PO SCH (08:38)
[2022-01-25] MEDS: Multivit/Ca/Min/Fe/FA 1 TAB TABLET PO SCH (08:38)
[2022-01-25] MEDS: hydroCHLOROthiazide 25 MG TABLET PO SCH (08:39)
[2022-01-25 14:49] LABS: Adenovirus Not Detected (Not Detect); Coronavirus 229E Not Detected (Not Detect); Coronavirus HKU1 Not Detected (Not Detect); Coronavirus NL63 Not Detected (Not Detect); Coronavirus OC43 Not Detected (Not Detect); Human Metapneumovirus Not Detected (Not Detect); Human Rhinovirus/Enterovirus Not Detected (Not Detect); Influenza A Subtype 2009 H1 Not Detected (Not Detect); Influenza B Not Detected (Not Detect); Parainfluenza Virus 1 Not Detected (Not Detect); Parainfluenza Virus 2 Not Detected (Not Detect); Parainfluenza Virus 3 Not Detected (Not Detect); SARS-CoV-2 Not Detected (Not Detect)
[2022-01-25 14:50] LABS: Bordetella Pertussis Not Detected (Not Detect); Chlamydophila pneumoniae Not Detected (Not Detect); Mycoplasma pneumoniae Not Detected (Not Detect); Parainfluenza Virus 4 Not Detected (Not Detect); Respiratory Syncytial Virus Not Detected (Not Detect)
== END 2022-01-25 17:05 | DRG 467 ==
LOC: SDCAOSI 06:16 → 4WAOSI 13:33
PROVIDERS: ADMIT Orthopaedic Surgery; ATTEND Orthopaedic Surgery

== ENCOUNTER 2022-03-19 07:53 | Observation (INO) ==
[2022-03-19] MEDS ORDERED: Naloxone 0.4 MG/ML INJ IVP PRN (14:52)
[2022-03-19] MEDS ORDERED: *HR* Dextrose 50 % in Water (Syg) 50 ML SYRINGE IVP PRN (15:15)
[2022-03-19] MEDS ORDERED: D5% in Water 1,000 ML IVC PRN (15:15)
[2022-03-19] MEDS ORDERED: Dextrose Gel 15 GM/37.5 ML TUBE PO PRN ×2 (15:15)
[2022-03-19] MEDS: Insulin LISPRO 300 UNITS/3 ML VIAL SUBQ SCH ×2 (17:27→19:41)
[2022-03-19] MEDS ORDERED: Acetaminophen 325 MG TABLET PO PRN (23:57)
[2022-03-20 06:17] LABS: Basophils # 0.1 K/mcL (0.0-0.2); Basophils % 0.6 %; Eosinophils # 0.3 K/mcL (0.0-0.6); Eosinophils % 3.3 %; Hematocrit 39.3 % (35.3-44.9); Hemoglobin 12.2 g/dL (11.5-15.4); Immature Granulocytes % 0.4 % (0-4); Lymphocytes % 24.4 %; Mean Corpuscular Hemoglobin 26.3 pg (28.0-33.3); Mean Corpuscular Volume 84.7 fL (83.0-100.0); Mean Platelet Volume 10.2 fL (9.4-12.4); Monocytes # 0.7 K/mcL (0.0-1.3); Neutrophils # 5.2 K/mcL (1.6-8.9); Platelet Count 261 K/mcL (140-400); Red Blood Count 4.64 M/mcL (3.82-4.97); Red Cell Distribution Width 15.3 % (11.5-14.5); Segmented Neutrophils % 63.3 %; White Blood Count 8.2 K/mcL (4.3-11.1)
[2022-03-20] MEDS: Insulin LISPRO 300 UNITS/3 ML VIAL SUBQ SCH ×4 (07:41→21:56)
[2022-03-20] MEDS ORDERED: Loratadine 10 MG TABLET PO PRN (11:20)
[2022-03-20] MEDS: Aspirin Enteric Coated 81 MG Tablet PO SCH (11:56)
[2022-03-21] MEDS: Insulin LISPRO 300 UNITS/3 ML VIAL SUBQ SCH ×4 (07:16→20:36)
[2022-03-21] MEDS: hydroCHLOROthiazide 25 MG TABLET PO SCH (08:01)
[2022-03-21] MEDS: Aspirin Enteric Coated 81 MG Tablet PO SCH (08:02)
[2022-03-21] MEDS: amLODIPine 5 MG TABLET PO SCH (08:02)
[2022-03-22] MEDS: Insulin LISPRO 300 UNITS/3 ML VIAL SUBQ SCH ×4 (08:50→21:14)
[2022-03-22] MEDS: Aspirin Enteric Coated 81 MG Tablet PO SCH (08:55)
[2022-03-22] MEDS: hydroCHLOROthiazide 25 MG TABLET PO SCH (08:55)
[2022-03-22] MEDS: amLODIPine 5 MG TABLET PO SCH (08:56)
[2022-03-23] MEDS: Insulin LISPRO 300 UNITS/3 ML VIAL SUBQ SCH ×4 (08:08→20:41)
[2022-03-23] MEDS: amLODIPine 5 MG TABLET PO SCH (08:09)
[2022-03-23] MEDS: Aspirin Enteric Coated 81 MG Tablet PO SCH (08:10)
[2022-03-23] MEDS: hydroCHLOROthiazide 25 MG TABLET PO SCH (08:10)
[2022-03-24] MEDS: *HR* Enoxaparin 40 MG/0.4 ML SYRINGE SQ SCH (05:42)
[2022-03-24] MEDS: Insulin LISPRO 300 UNITS/3 ML VIAL SUBQ SCH ×4 (07:32→19:52)
[2022-03-24] MEDS: Aspirin Enteric Coated 81 MG Tablet PO SCH (09:11)
[2022-03-24] MEDS: hydroCHLOROthiazide 25 MG TABLET PO SCH (09:11)
[2022-03-24] MEDS: amLODIPine 5 MG TABLET PO SCH (09:11)
[2022-03-25] MEDS: *HR* Enoxaparin 40 MG/0.4 ML SYRINGE SQ SCH (05:03)
[2022-03-25] MEDS: amLODIPine 5 MG TABLET PO SCH (07:42)
[2022-03-25] MEDS: Aspirin Enteric Coated 81 MG Tablet PO SCH (07:43)
[2022-03-25] MEDS: hydroCHLOROthiazide 25 MG TABLET PO SCH (07:43)
[2022-03-25] MEDS: Insulin LISPRO 300 UNITS/3 ML VIAL SUBQ SCH ×2 (07:58→11:35)
[2022-03-25 09:54] LABS: Influenza A PCR Negative (Negative); Influenza B PCR Negative (Negative); Resp. Syncytial Virus PCR Negative (Negative)
[2022-03-25 09:55] LABS: SARS-CoV-2 by PCR (In House) Negative (Negative)
[2022-03-25 12:17] VITALS: BP 111/64; PULSE 74; TEMP 98.1; O2SAT 91
== END 2022-03-25 12:50 ==
LOC: 3BNU 07:53 → EMEROOARM 07:53 → SUATTDRO 16:10 → 3BNU 16:45
PROVIDERS: ADMIT Internal Medicine; ATTEND Internal Medicine